=== PATIENT | female | born 1960 | race Caucasian/White ===

== ENCOUNTER 2017-12-10 11:00 | Emergency (ER) | payer MEDICARE ==
[~2017-12-10] VITALS: Ht 147.3 cm; Wt 65.8 kg
[~2017-12-10 11:00] MED LIST: BACLOFEN10 MG PO; CARAFATE1 G1 PO; CYCLOBENZAPRINE5 MG PO; DEPO-ESTRAD5 MG/1 ML IM; FIORICET TABLE1 EACH PO; KLONOPIN1 M1 PO; LEVOTHYROXINE112 MCG PO; LIALDA1.2 GM PO; LIPITOR40 MG PO; MORPHINE SULFAT30 M2 PO; NEXIUM40 MG PO; PANTOPRAZOLE SO40 MG PO; PERCOCET 10-321 EACH PO; RANITIDINE HCL300 M1 PO; REMERON30 MG PO; SEROQUEL25 MG PO; ULTRAM50 MG PO; Z SEROQUEL PO; Z.0.BENTYL20 MG PO; Z.0.PHENERGAN25 M1 PO; Z.0.SIMVASTATIN20 MG PO; Z.0.SOMA350 MG PO; Z.0.WELLBUTRIN XL300 PO; ZOFRAN8 MG PO; [UNRECOGNIZED DRUG - OTHER] PO
--- OUTSIDE RECORDS SUMMARY | 2017-12-10 11:04 | XMS REPORT | Clinical Summary ---
Author Author [facility] Organization [facility] Address Unknown Phone Unavailable Care Team Providers Care Swiss Type Screw Machine Operator Name Role Phone Mango High MD PCP Unavailable Allergies Active Allergy Reactions Severity Noted Date Comments Bacitracin 10/27/2017 Codeine Itching 05/01/2016 Nsaids (Non-Steroidal GI Intolerance 05/01/2016 Anti-Inflammatory Drug) Current Medications Prescription Sig. Disp. Refills Start End Date Status Date morPHINE (MS CONTIN) 15 0 09/04/20 Active MG 12 hr tablet 17 levothyroxine (SYNTHROID, Take 112 mcg by mouth 3 08/19/20 Active LEVOXYL) 112 mcg tablet once daily. 17 buPROPion XL (WELLBUTRIN Take 300 mg by mouth 0 08/17/20 Active XL) 300 MG 24 hr tablet every morning. 17 clonAZEPAM (KlonoPIN) 1 Take 1 mg by mouth 4 2 08/26/20 Active MG tablet (four) times a day. 17 cyclobenzaprine Take 10 mg by mouth 3 0 07/13/20 Active (FLEXERIL) 10 mg tablet (three) times a day as 17 needed. DEPO-ESTRADIOL 5 mg/mL INJECT 1 ML 0 09/15/20 Active injection INTRAMUSCULARLY ONCE A 17 MONTH gabapentin (NEURONTIN) Take 400 mg by mouth 3 3 07/22/20 Active 400 mg capsule (three) times a day. 17 tiZANidine (ZANAFLEX) 2 TK 1 T PO TID 2 09/08/20 Active MG tablet 17 sucralfate (CARAFATE) 1 Take 1 g by mouth 4 Active gram tablet (four) times a day. mesalamine (LIALDA) 1.2 Take 2.4 g by mouth once 1 11/15/20 Active gram EC tablet daily. 17 esomeprazole (NexIUM) 40 Take 40 mg by mouth daily Active MG capsule before breakfast. pantoprazole (PROTONIX) TAKE 1 TABLET BY MOUTH 5 09/07/20 Active 40 MG EC tablet TWICE A DAY BEFORE MEALS 17 atorvastatin (LIPITOR) 40 Take 40 mg by mouth Active MG tablet daily. fenofibrate (LOFIBRA) 54 Take 54 mg by mouth once 3 09/13/20 Active MG tablet daily. 17 ondansetron (ZOFRAN) 8 MG Take 8 mg by mouth every 1 09/08/20 Active tablet 6 (six) hours as needed. 17 for nausea methocarbamol (ROBAXIN) Take 750 mg by mouth 4 0 08/31/20 Active 750 MG tablet (four) times a day. 17 Active Problems Problem Noted Date DDD (degenerative disc disease), lumbar 11/15/2017 Encounters Date Type Specialty Care Team Description 10/27/2017 Office Visit Neurosurgery Jonathan Irizarry MD DDD ( degenerative disc disease), lumbar (Primary Dx) 10/11/2017 Hospital Radiology Anant Richey MD Piriformis syndrome, Encounter unspecified laterality; Arthritis 09/21/2017 Office Visit Orthopedic Surgery Anant Richey MD Piriformis syndrome, unspecified laterality (Primary Dx); Arthritis 09/21/2017 Procedure Pass Radiology after 12/09/2016 Social History Tobacco Use Types Packs/Day Years Used Date Current Every Day Smoker 1 Smokeless Tobacco: Never Used Tobacco Cessation: Ready to Quit: Yes; Counseling Given: Yes Alcohol Use Drinks/Week oz/Week Comments No Sex Assigned at Date Recorded Not on file Last Filed Vital Signs Not on file Plan of Treatment Health Maintenance Due Date Last Done Comments PAP SMEAR 1979 COLONOSCOPY 02/07/2008 MAMMOGRAM 02/07/2008 INFLUENZA VACCINE 05/25/2017 Results * MRI Sacrum And Or Coccyx Wo Contrast (10/11/2017 1:44 PM) Specimen Performing Laboratory [facility] [address] [place] [address] Narrative EXAMINATION:MRI SACRUM AND OR COCCYX WO CONTRAST CLINICAL HISTORY:G57.00 Lesion of sciatic nerveunspecified lower limb, M19.90 Unspecified osteoarthritisunspecified site, PAIN COMPARISON:Lumbar spine MRI dated March 15, [address] of the lumbar spine dated March 16, 2014 TECHNIQUE: Multiplanar MRI imaging of the sacrum withoutIV Gadolinium was performed. IMPRESSION: Again noted are postoperative changes with posterior laminectomy in the lower lumbar spine and postsurgical fluid in the laminectomy defect unchanged from prior examination. The sacrum and coccyx demonstrates normal alignment. Intervertebral disc graft is seen at the visualized intervertebral discs including L5-S1 level with endplate mild edema. Osseous donor site is seen in the right posterior iliac bone. The sacroiliac joints bilaterally are unremarkable with no evidence of osseous bony fusion of the joint and no joint effusion. The presacral soft tissues are unremarkable. The sacral spine canal and neural foramina are unremarkable. 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 IMPRESSION: Again noted are postoperative changes with posterior laminectomy in the lower lumbar spine and postsurgical fluid in the laminectomy defect unchanged from prior examination. The sacrum and coccyx demonstrates normal alignment. Intervertebral disc graft is seen at the visualized intervertebral discs including L5-S1 level with endplate mild edema. Osseous donor site is seen in the right posterior iliac bone. The sacroiliac joints bilaterally are unremarkable with no evidence of osseous bony fusion of the joint and no joint effusion. The presacral soft tissues are unremarkable. The sacral spine canal and neural foramina are unremarkable. [facility]-[id number] after 12/09/2016 Insurance Payer Benefit Subscriber ID Type Phone Address Plan / Group [facility] MEDICARE UNITED/CAR xxxxxxxxx HMO E MARIBEL CIFUENTES
[2017-12-10] MEDS ORDERED: CLONAZEPAM 1 MG TAB PO ONE (12:00)
[2017-12-10 12:36] VITALS: BP 127/90
== END 2017-12-10 12:24 | disposition home or self-care (01) ==
LOC: ER 11:00
DX: F41.9 Anxiety disorder, unspecified (principal); F13.239 Sedative, hypnotic or anxiolytic dependence with withdrawal, unspecified
CPT/HCPCS: 99283

== ENCOUNTER 2018-01-08 20:38 | Emergency (ER) | payer MEDICARE, OTHER ==
[~2018-01-08] VITALS: Ht 147.3 cm; Wt 65.8 kg
--- OUTSIDE RECORDS SUMMARY | 2018-01-08 20:41 | XMS REPORT | Clinical Summary ---
Author Author [facility] Address Unknown Phone Unavailable Care Team Providers Care Home And School Visitor Name Role Phone Mango High MD PCP [...] Dx); Arthritis 09/21/2017 Procedure Pass Radiology after 01/07/2017 Social History Tobacco Use Types Packs/Day Years Used Date Current Every Day Smoker 1 Smokeless Tobacco: Never Used Tobacco Cessation: Ready to Quit: Yes; Counseling Given: Yes Alcohol Use Drinks/Week oz/Week Comments No Sex Assigned at Date Recorded Not on file Last Filed Vital Signs Not on file Plan of Treatment Date Type Specialty Care Team Description 01/26/2018 Office Visit Neurosurgery Jonathan Irizarry MD [address] [facility] [address] [place] [address] Health Maintenance Due Date Last Done Comments PAP SMEAR 1979 COLONOSCOPY 02/07/2008 MAMMOGRAM 02/07/2008 INFLUENZA VACCINE 05/25/2017 Results * MRI Sacrum And Or Coccyx Wo Contrast (10/11/2017 1:44 PM) Specimen Performing Laboratory [address] [address] Narrative EXAMINATION:MRI SACRUM AND OR COCCYX WO [...] spine canal and neural foramina are unremarkable. 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 [facility]-[id number] after 01/07/2017 Insurance Payer Benefit Subscriber ID Type Phone Address Plan / Group [facility] MEDICARE UNITED/CAR xxxxxxxxx HMO Luis [address] [place]USS [id number]
--- OUTSIDE RECORDS SUMMARY | 2018-01-08 20:41 | XMS REPORT | Continuity of Care Document ---
Author Author [facility] Organization [facility] Address [address] [place] [address] Phone Unavailable Care Team Providers Care Cupola Melter Helper Name Role Phone RODRIGUEZ IBARRA MD PCP Insurance Providers Guarantor Hellen Segura Address [address] [place] [address] Email PTDECLINED Payer Care Improvement Plus Policy Number [id number] Subscriber's Name Hellen Segura Relationship 18 Self / Same As Patient Group Number [id number] Group Name UNEMPLOYED Effective Date 15 Payer [facility] Policy Number [id number] Subscriber's Name Hellen Segura Relationship 18 Self / Same As Patient Advance Directives Directive Response Recorded Date/Time Does the patient have an advance directive? No 11/08/14 8:31am If yes, is advance directive on file with [facility]? No 12/12/13 3:00pm If not on file with [facility] will patient provide a copy? Yes 10/21/16 12:15pm Problems No problem information available. Medications Current Home Medications Medication Dose Units Route Directions Days Qty Instructions Start Date Atorvastatin Calcium (Lipitor) 40 Mg Tablet 40 Mg Oral Bedtime Bupropion Hcl (Wellbutrin Xl) 300 Mg Tab.sr.24h 1 Tab Oral Daily Butalb/Acetaminophen/Caffeine (Fioricet Tablet) 1 Each Tablet 1-2 Tab Oral As Needed Clonazepam (Klonopin) 1 Mg Tab.rapdis 1 Tab Oral Four Times Daily Cyclobenzaprine Hcl (Flexeril) 5 Mg Tablet 30 Mg Oral Three Times A Day Dicyclomine Hcl (Bentyl) 20 Mg Tablet 1 Tab Oral Four Times Daily Esomeprazole Magnesium (Nexium) 40 Mg Capsule.dr 40 Mg Oral Twice A Day PROTONIX THERAPEUTIC SUBSTITUTE FOR NEXIUM PER [facility] Estradiol Cypionate (Depo-Estradiol) 5 Mg/1 Ml Vial 1.5 Ml Intramusc Q 21 Days Levothyroxine Sodium 112 Mcg Tablet 112 Mcg Oral Daily Mesalamine (Lialda) 1.2 Gm Tablet.dr 1.2 Gm Oral Twice A Day Mirtazapine (Remeron) 30 Mg Tablet 30 Mg Oral Bedtime Morphine Sulfate (Morphine Sulfate Er) 30 Mg Tablet.er 30 Mg Oral Three Times A Day Ondansetron Hcl (Zofran) 8 Mg Tablet 8 Mg Oral As Needed Pantoprazole Sodium (Protonix) 40 Mg Tablet.dr 40 Mg Oral Twice A Day Quetiapine Fumarate (Seroquel) 25 Mg Tablet 150 Mg Oral Bedtime 60 Tab Sucralfate (Carafate) 1 Gm Tablet 1 Tab Oral Four Times Daily Past Home Medications Medication Directions Ordered Status Baclofen 10 Mg Tablet, 10 Mg Oral Three Times A Day Discontinued Carisoprodol (Soma) 350 Mg Tablet, 1 Tab Oral Four Times Daily Discontinued Hydrocodone Bit/Acetaminophen (Lorcet Plus Tablet) 1 Each Tablet, 1 Tab Oral Q 4-6 Hours Discontinued Oxycodone Hcl/Acetaminophen (Percocet 10-325 Mg Tablet) 1 Each Tablet, 1 Tab Oral Four Times Daily Discontinued Promethazine Hcl (Phenergan) 25 Mg Tablet, 2 Tab Oral As Needed Discontinued Quetiapine Fumarate (Seroquel) 400 Mg Tablet, 2 Tab Oral Qhs Discontinued Ranitidine Hcl 300 Mg Capsule, 300 Mg Oral Bedtime Discontinued Simvastatin 20 Mg Tablet, 1 Tab Oral Qhs Discontinued Tramadol Hcl (Ultram) 50 Mg Tablet, 1 Tab Oral As Needed Discontinued Social History Social History Problem Response Recorded Date/Time Onset Date Status Hx Psychiatric Problems No 12/12/2013 3:00pm Not Applicable Not Applicable Hx Eating Disorder No 12/12/2013 3:00pm Not Applicable Not Applicable Hx Substance Use Disorder No 12/12/2013 3:00pm Not Applicable Not Applicable Hx Depression No 12/12/2013 3:00pm Not Applicable Not Applicable Hx Substance Use Treatment No 12/12/2013 3:00pm Not Applicable Not Applicable Hx Physical Abuse No 12/12/2013 3:00pm Not Applicable Not Applicable Hospital Discharge Instructions No hospital discharge instruction information available. Plan of Care Discharge Date 12/10/17 12:24pm Disposition HOME, SELF-CARE Condition at Discharge Stable Instructions/Education Provided Panic Attack Forms Provided Work/School Excuse Prescriptions See Medication Section Functional Status No functional status information available. Allergies, Adverse Reactions, Alerts Allergen Type Severity Reaction Status Last Updated NSAIDS (Non-Steroidal Anti-Inflamma Allergy Mild Active 12/10/17 Alprazolam Allergy Mild "It makes me crazy" Active 10/21/16 Morphine Allergy Mild SEE COMMENTS Active 09/18/15 Codeine Allergy Mild Active 10/21/16 Oxycodone Allergy Unknown "It makes you do things, that's all I will say" Active 10/21/16 Hydromorphone Allergy Unknown SEE COMMENTS Active 10/21/16 Immunizations No immunization information available. Vital Signs Acute Vital Signs Vital Response Date/Time Pulse Pulse Rate (adult) 90 bpm (60 - 90) 12/10/2017 12:36pm Respiratory Rate 20 bpm (12 - 24) 12/10/2017 12:36pm Blood Pressure 127/90 mm Hg 12/10/2017 12:36pm Height 4 ft 10 in 12/10/2017 11:48am Weight 145 lb 12/10/2017 11:48am Body Mass Index 30.3 kg/m^2 12/10/2017 11:48am Results No relevant diagnostic test, laboratory data and/or discharge summary information available. Procedures No procedure information available. Encounters Encounter Location Arrival/Admit Date Discharge/Depart Date Attending Provider Departed Emergency Room [facility] 12/10/17 11:00am 12/10 12:24pm ZHOU HIGGINBOTHAM MD
[2018-01-08] MEDS ORDERED: MORPHINE SULFATE 4 MG/ML SYR IM PRN (22:00)
[2018-01-08 23:38] VITALS: BP 125/64
== END 2018-01-08 22:15 | disposition home or self-care (01) ==
LOC: FSED 20:38
DX: M54.5 Low back pain (principal); G89.29 Other chronic pain; F41.9 Anxiety disorder, unspecified; F32.9 Major depressive disorder, single episode, unspecified; E78.5 Hyperlipidemia, unspecified
CPT/HCPCS: 99282

== ENCOUNTER 2019-04-11 15:29 | Emergency (ER) | payer MEDICARE, OTHER ==
[~2019-04-11] VITALS: Ht 147.3 cm; Wt 72.6 kg
--- OUTSIDE RECORDS SUMMARY | 2019-04-11 15:32 | XMS REPORT | Clinical Summary ---
Author Author [facility] Address Unknown Phone Unavailable Care Team Providers Care Analysis Internship Name Role Phone Asked, No Pcp PCP Unavailable Allergies Comments Active Allergy Reactions Severity Noted Date Bacitracin 10/27/2017 Codeine Itching 05/01/2016 Nsaids (Non-Steroidal GI 05/01/2016 Anti-Inflammatory Drug) Intolerance Medications End Date Status Medication Sig Dispensed Refills Start Date 04/15/2019 Active sucralfate (CARAFATE) 1 Take 1 tablet 120 tablet 11 gram tablet (1 g total) 8 by mouth 4 (four) times a day. 04/15/2019 Active dicyclomine (BENTYL) 20 Take 1 tablet 120 tablet 11 mg tablet (20 mg total) 8 by mouth 4 (four) times a day. 04/15/2019 Active gabapentin (NEURONTIN) Take 1 90 capsule 11 300 mg capsule capsule (300 8 mg total) by mouth 3 (three) times a day. Active ondansetron (ZOFRAN) 8 MG Take 1 tablet 20 tablet 0 tablet (8 mg total) 8 by mouth every 6 (six) hours as needed for nausea. 04/16/2019 Active atorvastatin (LIPITOR) 40 Take 1 tablet 30 tablet 11 MG tablet (40 mg total) 8 by mouth daily. Active mesalamine (ASACOL) 800 Take 3 0 mg EC tablet tablets 8 (2,400 mg total) by mouth daily. 04/15/2019 Active fenofibrate (LOFIBRA) 54 Take 1 tablet 30 tablet 11 MG tablet (54 mg total) 8 by mouth nightly. 04/15/2019 Active ipratropium (ATROVENT) Take 2.5 mL 75 mL 12 0.02 % nebulizer solution (0.5 mg 8 total) by nebulization every 6 (six) hours while awake. Active benzocaine-menthol Apply 1 0 (CEPACOL MAX) 15-3.6 mg lozenge to 8 lozenge cheek every 2 (two) hours as needed (sore throat). 04/16/2019 Active buPROPion XL (WELLBUTRIN Take 1 tablet 30 tablet 11 XL) 300 MG 24 hr tablet (300 mg 8 total) by mouth daily. Active pantoprazole (PROTONIX) Take 1 tablet 0 40 MG EC tablet (40 mg total) 8 by mouth daily. 04/16/2019 Active levothyroxine (SYNTHROID, Take 1 tablet 30 tablet 11 LEVOXYL) 75 mcg tablet (75 mcg 8 total) by mouth daily. Active lactulose 20 gram/30 mL Take 30 mL 0 solution (20 g total) 8 by mouth 2 (two) times a day. Hold if diarrhea Or BM today Active clonAZEPAM (KlonoPIN) 1 Take 1 mg by 0 MG tablet mouth 4 (four) times a day. 04/15/2018 Discontinued levothyroxine (SYNTHROID, Take 74 mcg 3 LEVOXYL) 112 mcg tablet by mouth once 7 daily. 04/15/2018 Discontinued buPROPion XL (WELLBUTRIN Take 300 mg 0 XL) 300 MG 24 hr tablet by mouth 7 every morning. 04/15/2018 Discontinued clonAZEPAM (KlonoPIN) 1 Take 2 mg by 2 MG tablet mouth 4 7 (four) times a day. 04/15/2018 Discontinued DEPO-ESTRADIOL 5 mg/mL INJECT 1 ML 0 injection INTRAMUSCULAR 7 LY ONCE A MONTH 04/15/2018 Discontinued gabapentin (NEURONTIN) Take 300 mg 3 400 mg capsule by mouth as 7 needed. 04/15/2018 Discontinued sucralfate (CARAFATE) 1 Take 1 g by 0 gram tablet mouth 4 (four) times a day. 04/15/2018 Discontinued mesalamine (LIALDA) 1.2 Take 2.4 g by 1 gram EC tablet mouth once 7 daily. 04/15/2018 Discontinued esomeprazole (NexIUM) 40 Take 40 mg by 0 MG capsule mouth daily before breakfast. 04/15/2018 Discontinued pantoprazole (PROTONIX) TAKE 1 TABLET 5 40 MG EC tablet BY MOUTH 7 TWICE A DAY BEFORE MEALS 04/15/2018 Discontinued atorvastatin (LIPITOR) 40 Take 40 mg by 0 MG tablet mouth daily. 04/15/2018 Discontinued fenofibrate (LOFIBRA) 54 Take 54 mg by 3 MG tablet mouth once 7 daily. 04/15/2018 Discontinued ondansetron (ZOFRAN) 8 MG Take 8 mg by 1 tablet mouth every 6 7 (six) hours as needed. for nausea 04/15/2018 Discontinued dicyclomine (BENTYL) 20 Take 20 mg by 0 mg tablet mouth 4 (four) times a day. 04/15/2018 Discontinued morphine sulfate (MS Take 15 mg by 0 CONTIN ORAL) mouth every 4 (four) hours. 04/15/2018 Discontinued oxyCODone (OxyCONTIN) 10 Take 10 mg by 0 MG 12 hr tablet mouth every 12 (twelve) hours. 05/16/2018 Discontinued acetaminophen (TYLENOL) Take 31.3 mL 0 160 mg/5 mL (5 mL) (1,000 mg 8 solution total) by mouth every 8 (eight) hours. 05/16/2018 Discontinued morPHINE (MSIR) 15 MG Take 1 tablet 0 tablet (15 mg total) 8 by mouth every 4 (four) hours as needed for severe pain for up to 30 days. Max Daily Amount: 90 mg 05/16/2018 Discontinued diazePAM (VALIUM) 5 MG Take 1 tablet 0 tablet (5 mg total) 8 by mouth every 8 (eight) hours for 30 days. 05/16/2018 Discontinued simethicone (MYLICON) 80 Chew 1 tablet 0 MG chewable tablet (80 mg total) 8 every 6 (six) hours as needed for flatulence for up to 30 days. 05/16/2018 Discontinued heparin sodium,porcine Inject 1 mL 0 (HEPARIN, PORCINE,) 5,000 (5,000 Units 8 unit/mL injection total) under the skin every 12 (twelve) hours. 05/16/2018 Discontinued polyethylene glycol Take 17 g by 60 packet 0 (MIRALAX) 17 gram packet mouth 2 (two) 8 times a day for 30 days. 05/16/2018 Discontinued sennosides-docusate Take 1 tablet 60 tablet 11 sodium (SENOKOT-S) 8.6-50 by mouth 2 8 mg per tablet (two) times a day. 05/16/2018 Discontinued bisacodyl (DULCOLAX) 10 Insert 1 0 mg suppository suppository 8 (10 mg total) into the rectum daily as needed for constipation for up to 30 days. 05/16/2018 nicotine (NICODERM CQ) 14 Place 1 patch 30 patch 0 mg/24 hr on the skin 8 daily for 30 days. 05/16/2018 lidocaine (LIDODERM) 5 % Place 1 patch 30 patch 0 on the skin 8 daily for 30 days. Remove & Discard patch within 12 hours or as directed by 05/16/2018 Discontinued povidone-iodine Apply 0 (BETADINE) 10 % external topically 8 solution every 12 (twelve) hours for 30 days. Apply to incision twice a day and change dressing 04/15/2018 lidocaine PF (XYLOCAINE) Inject 5 mL 5 mL 0 10 mg/mL (1 %) injection as directed 8 once for 1 dose. 05/16/2018 Discontinued cephalexin (KEFLEX) 500 Take 1 0 MG capsule capsule (500 8 mg total) by mouth every 12 (twelve) hours for 10 days. 05/16/2018 Discontinued clonAZEPAM (KlonoPIN) 1 Take 1 tablet 60 tablet 0 MG tablet (1 mg total) 8 by mouth every 6 (six) hours as needed for anxiety for up to 30 days. 06/05/2018 morPHINE (MS CONTIN) 15 Take 1 tablet 0 MG 12 hr tablet (15 mg total) 8 by mouth every 12 (twelve) hours for 20 days. Max Daily Amount: 30 mg 06/15/2018 morPHINE (MSIR) 15 MG Take 1 tablet 0 tablet (15 mg total) 8 by mouth every 4 (four) hours as needed for severe pain for up to 30 days. Max Daily Amount: 90 mg 06/09/2018 meropenem 1 g in sodium Infuse 1 g 1 each 0 chloride 0.9 % MBP 100 mL into a venous 8 IVPB catheter every 8 (eight) hours for 24 days. 06/15/2018 warfarin (COUMADIN) 2 MG Take 2 100 tablet 2 tablet tablets (4 mg 8 total) by mouth daily for 30 days. 10/26/2018 HYDROcodone-acetaminophen Take 1 tablet 50 tablet 0 (NORCO) 10-325 mg per by mouth 8 tablet every 6 (six) hours as needed for moderate pain for up to 14 days. 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 Degeneration of lumbar or lumbosacral intervertebral disc 04/22/2018 DDD (degenerative disc disease), lumbar 11/15/2017 Encounters Care Team Description Date Type Specialty Radha Zurita MA Scoliosis of thoracolumbar spine, unspecified scoliosis type (Primary Dx) 12/16/2018 Orders Only Neurosurgery Radha Zurita MA Scoliosis of thoracolumbar spine, unspecified scoliosis type (Primary Dx) 10/14/2018 Orders Only Neurosurgery Jonathan Irizarry MD 10/12/2018 Refill Neurosurgery Jonathan Irizarry MD 10/12/2018 Orders Only Neurosurgery Abram Norton MD Chronic midline low back pain without sciatica (Primary Dx) 10/08/2018 Emergency Emergency Medicine Jonathan Irizarry MD Sagittal plane imbalance (Primary Dx) 07/06/2018 Office Visit Jeannie Moreira MA 06/08/2018 Telephone Infectious Diseases Jeannie Beatty MA 06/08/2018 Abstract Infectious Diseases N/A 06/07/2018 Intake Access Radha Zurita MA 06/07/2018 Telephone Jeannie Moreira MA 06/07/2018 Telephone Infectious Diseases Jonathan Irizarry MD Sagittal plane imbalance (Primary Dx); DDD (degenerative disc disease), lumbar 06/01/2018 Office Visit Neurosurgery Jonathan Irizarry MD Scoliosis of thoracolumbar spine, unspecified scoliosis type 06/01/2018 Hospital Radiology Encounter Radha Zurita MA Scoliosis of thoracolumbar spine, unspecified scoliosis type (Primary Dx) 06/01/2018 Transcribe Neurosurgery Orders Jeannie Beatty MA 05/30/2018 Abstract Infectious Diseases 05/20/2018 Clinical Home Health Services Support Amy Mckeon RN 05/16/2018 Patient Quality Outreach [facility], Kin Kang MD 05/05/2018 Anesthesia Plastic Surgery Event Felisa Kwon MD DEBRIDEMENT OF BILATERAL LUMBAR WOUNDS AND REMOVAL OF 20 ANTIBIOTIC BEADS, COVERAGE OF RIGHT BECKY-LUMBAR WOUND WITH ROTATIONAL PARASPINIS MUSCLE FLAP AND LOCAL SKIN ADVANCEMENT WOUND OF 10CM X 2 CM, COVERAGE OF MID LUMBAR WOUND WITH ROTATIONAL PARASPINIS MUSCLE FLAP AND LOCAL SKIN ADVANCEMENT FLAP OF WOUND 30 CM X 4 CM 05/05/2018 Surgery Plastic Surgery Manuel Mckeon 04/26/2018 Anesthesia Plastic Surgery Event Felisa Kwon MD EXCISIONAL DEBRIDEMENT OF 2 LUMBAR WOUNDS, AND PLACEMENT OF 20 ANTIBIOTIC BEADS (12 IN MIDLINE WOUND, 8 IN RIGHT BACK WOUND) 04/26/2018 Surgery Plastic Surgery Ghazala Rodriguez MD Holman, Paul J., MD DDD (degenerative disc disease), lumbar (Primary Dx); Wound dehiscence; Acute midline low back pain without sciatica; Degenerative disc disease, lumbar; Unspecified open wound of lower back and pelvis without penetration into retroperitoneum, initial encounter; H/O degenerative disc disease 04/20/2018 Hospital Neurosurgery - Encounter 05/16/2018 Jonathan Irizarry MD DDD (degenerative disc disease), lumbar 04/01/2018 Hospital Neurosurgery - Encounter 04/15/2018 after 04/10/2018 Family History Medical History Relation Name Comments No Known Problems Father Cancer Mother Cancer Sister Relation Name Status Comments Father Mother Sister Alive Social History Date Tobacco Use Types Packs/Day Years Used Current Every Day Smoker 1 Smokeless Tobacco: Never Used Tobacco Cessation: Ready to Quit: No; Counseling Given: Yes Comments: havent smoked in 30 days Alcohol Use Drinks/Week oz/Week Comments No Sex Assigned at Date Recorded Not on file Industry Job Start Date Occupation Not on file Not on file Not on file Travel End Travel History Travel Start No recent travel history available. Last Filed Vital Signs Time Taken Vital Sign Reading 10/08/2018 8:00 PM ARTS THERAPIST Blood Pressure 126/67 10/08/2018 8:00 PM ARTS THERAPIST Pulse 88 10/08/2018 3:55 PM ARTS THERAPIST Temperature 36.4 C (97.5 F) 10/08/2018 8:00 PM ARTS THERAPIST Respiratory Rate 16 10/08/2018 8:00 PM ARTS THERAPIST Oxygen Saturation 98% - Inhaled Oxygen - Concentration 05/05/2018 3:38 PM CDT Weight 68 kg (150 lb) 10/08/2018 3:55 PM ARTS THERAPIST Height 149.9 cm (4' 11") 05/05/2018 3:38 PM CDT Body Mass Index 30.82 Plan of Treatment Health Maintenance Due Date Last Done Comments BREAST CANCER SCREENING 02/07/2008 COLONOSCOPY SCREENING 02/07/2008 SHINGLES VACCINES (#1) 02/07/2008 INFLUENZA VACCINE 05/25/2019 Implants Device Identifier Shelf Expiration Date Model / Serial / Lot Implanted Type Area Manufactur er 08/16/2020 [id number] / / [id number] Mazor X Spine Disposable Kit Accessorie N/A: N/A Implanted: Qty: 1 on 04/01/2018 by s Jonathan Irizarry MD 01/22/2021 [id number] / / [id number] 2.5cc Healthlink Ifactor Putty, Bone Graft N/A: N/A HEALTHLINK Peptide Enhanced Bone Graft Substitute Implanted: Qty: 1 on 04/01/2018 by Jonathan Irizarry MD 08/25/2022 [id number] / [id number] / [id number] Bone Matriz Osteocel Pro Large - Human N/A: N/A NUVASIVE [id number] - [id number] Tissue Implanted: Qty: 1 on 04/01/2018 by Implants Jonathan Irizarry MD 08/10/2022 [id number] / [id number] / [id number] Bone Cancellous 30ml Chips - Human N/A: N/A RTI [id number] - [id number] Tissue SURGICAL Implanted: Qty: 1 on 04/01/2018 by Implants INC. Jonathan Irizarry MD 03/25/2019 [id number] / / [id number] Kit Bone Grft Lmbr Tprd 8ml Xxl Human N/A: N/A MEDTRONIC Infuse - [id number] Tissue SPINAL AND Implanted: Qty: 1 on 04/01/2018 by Implants Jonathan Cunningham MD 07/08/2019 [id number] / [id number] / [id number] Paste Dbm Easy-Dispensing Wdmth Syr Human N/A: N/A MEDTRONIC 10ml [address] - [id number] - Tissue SPINAL [id number] Implants GRAFT Implanted: Qty: 1 on 04/01/2018 by TECHNOLOGJonathan Morales MD 08/30/2019 [id number] / [id number] / [id number] Drafton Dbm Orthoblend Small Defect Human N/A: N/A MEDTRONIC 5cc - [id number] - [id number] Tissue SPINAL AND Implanted: Qty: 1 on 04/01/2018 by Implants Jonathan Cunningham MD [id number] / / Maxcess 4 Surgical Access Kit - IPM N/A: N/A NUVASIVE [id number] IMPLANT SPINE Implanted: Qty: 1 on 04/01/2018 by Jonathan Bray MD 12/14/2022 [id number] / / [id number] Modulus Xlw, [id number] 10deg - IPM N/A: N/A NUVASIVE [id number] IMPLANT SPINE Implanted: Qty: 1 on 04/01/2018 by Jonathan Bray MD [id number] / / Maxcess 4 Surgical Access Kit - IPM N/A: N/A NUVASIVE [id number] IMPLANT SPINE Implanted: Qty: 1 on 04/01/2018 by Jonathan Bray MD 08/23/2020 [id number] / / NA Modulus Xlw, [id number] 10deg - IPM N/A: N/A NUVASIVE [id number] IMPLANT SPINE Implanted: Qty: 1 on 04/01/2018 by Jonathan Bray MD [id number] / / Reline Mas Cocr Pratik, 5.6w376ds IPM N/A: N/A NUVASIVE Straight - [id number] IMPLANT SPINE Implanted: Qty: 4 on 04/01/2018 by Jonathan Bray MD [id number] / / Nit K-Wire Precept - [id number] IPM N/A: N/A NUVASIVE Implanted: Qty: 6 on 04/01/2018 by IMPLANT SPINE Jonathan Irizarry MD DEVICES [id number] / / Reline Open Lock Screw - [id number] IPM N/A: N/A NUVASIVE Implanted: Qty: 14 on 04/01/2018 by IMPLANT SPINE Jonathan Irizarry MD DEVICES 07/04/2020 [id number] / / NA Reline Mas Ti Pratik 5.5x25mm Lordotic IPM N/A: N/A NUVASIVE - [id number] IMPLANT SPINE Implanted: Qty: 1 on 04/01/2018 by DEVICES Jonathan Irizarry MD 08/13/2020 [id number] / / NA Reline Mas Screw, 5.5x35mm 2c IPM N/A: N/A NUVASIVE Polyaxial - [id number] IMPLANT SPINE Implanted: Qty: 1 on 04/01/2018 by Jonathan Bray MD 08/13/2020 [id number] / / NA Reline Mas Screw, 5.5x40mm 2c IPM N/A: N/A NUVASIVE Polyaxial - [id number] IMPLANT SPINE Implanted: Qty: 1 on 04/01/2018 by DEVICES Jonathan Irizarry MD [id number] / / Reline Mas Screw, 6.5x45mm 2c IPM N/A: N/A NUVASIVE Polyaxial - [id number] IMPLANT SPINE Implanted: Qty: 2 on 04/01/2018 by Jonathan Bray MD 03/13/2022 [id number] / / NA Reline Mas Screw, 5.5x40mm 2c IPM N/A: N/A NUVASIVE Polyaxial - [id number] IMPLANT SPINE Implanted: Qty: 1 on 04/01/2018 by Jonathan Bray MD 03/18/2020 [id number] / / [id number] Modulus Xlw, [id number] 10deg - IPM N/A: N/A NUVASIVE [id number] IMPLANT SPINE Implanted: Qty: 1 on 04/01/2018 by Jonathan Bray MD 03/13/2020 [id number] / / NA Reline Mas Screw, 6.5x35mm 2c IPM N/A: N/A NUVASIVE Polyaxial - [id number] IMPLANT SPINE Implanted: Qty: 1 on 04/01/2018 by DEVICES Jonathan Irizarry MD [id number] / / Reline Mas Screw, 6.5x40mm 2c IPM N/A: N/A NUVASIVE Polyaxial - [id number] IMPLANT SPINE Implanted: Qty: 2 on 04/01/2018 by DEVICES Jonathan Irizarry MD [id number] / / Reline Mas Screw, 6.5x50mm 2c IPM N/A: N/A NUVASIVE Polyaxial - [id number] IMPLANT SPINE Implanted: Qty: 1 on 04/01/2018 by DEVICES Jonathan Irizarry MD [id number] / / Reline Mas Screw, 7.5x45mm 2c IPM N/A: N/A NUVASIVE Polyaxial - [id number] IMPLANT SPINE Implanted: Qty: 1 on 04/01/2018 by Jonathan Bray MD [id number] / / Reline Mas Screw, 8.5x40mm 2c IPM N/A: N/A NUVASIVE Polyaxial - [id number] IMPLANT SPINE Implanted: Qty: 1 on 04/01/2018 by DEVICES Jonathan Irizarry MD [id number] / / Reline Mas Screw, 7.5x40mm 2c IPM N/A: N/A NUVASIVE Polyaxial - [id number] IMPLANT SPINE Implanted: Qty: 1 on 04/01/2018 by Jonathan Bray MD 03/23/2020 [id number] / / NA Reline Mas Screw, 8.5x70mm 2c Poly IPM N/A: N/A NUVASIVE Iliac - [id number] IMPLANT SPINE Implanted: Qty: 2 on 04/01/2018 by Jonathan Bray MD 08/24/2022 [id number] / / [id number] Material Bone Hmsts Wtrsolbl 2.5g Orthopedic N/A: N/A Ostene - [id number] Trauma Implanted: Qty: 1 on 04/01/2018 by Jonathan Ott MD [id number] / / Kit Dil M5 Xlif - [id number] Spinal N/A: N/A NUVASIVE Implanted: Qty: 1 on 04/01/2018 by Implants Jonathan Irizarry MD [id number] / / Kit Dil M5 Xlif - [id number] Spinal N/A: N/A NUVASIVE Implanted: Qty: 1 on 04/01/2018 by Implants Jonathan Irizarry MD 01/22/2019 [id number] / / [id number] Cement Bone Full-Dose Premxd W/ Surgical N/A: Back, GAEL Tobr Simplex P Pack 10/Ea - Bone Other than ORTHOPEDIC [id number] Cement Spine S Implanted: Qty: 1 on 04/26/2018 by HIPS-KNEES Felisa Kwon MD 02/22/2022 [id number] / / [id number] 500mg, Amniofill Human Placental N/A: N/A [id number] Tissue Allograft Implanted: Qty: 1 on 04/01/2018 by Jonathan Irizarry MD Procedures Comments Procedure Name Priority Date/Time Associated Diagnosis C-REACTIVE PROTEIN Routine 06/06/2018 BASIC METABOLIC PANEL Routine 06/06/2018 CBC WITH PLATELET AND Routine 06/06/2018 DIFFERENTIAL XR SPINE SCOLIOSIS 2-3 Routine 06/01/2018 Scoliosis of VIEWS 1:20 PM CDT thoracolumbar spine, unspecified scoliosis type C-REACTIVE PROTEIN Routine 05/30/2018 BASIC METABOLIC PANEL Routine 05/30/2018 CBC WITH PLATELET AND Routine 05/30/2018 DIFFERENTIAL C-REACTIVE PROTEIN Routine 05/23/2018 BASIC METABOLIC PANEL Routine 05/23/2018 CBC WITH PLATELET AND Routine 05/23/2018 DIFFERENTIAL PROTHROMBIN TIME WITH INR Routine 05/16/2018 7:56 AM CDT PROTHROMBIN TIME WITH INR Routine 05/15/2018 4:20 AM CDT HEPATIC FUNCTION PANEL Routine 05/14/2018 5:15 AM CDT PROTHROMBIN TIME WITH INR Routine 05/14/2018 5:15 AM CDT ZZESTIMATED GFR Routine 05/13/2018 3:45 AM CDT FERRITIN LEVEL Routine 05/13/2018 3:45 AM CDT VITAMIN B12 LEVEL Routine 05/13/2018 3:45 AM CDT THYROID STIMULATING Routine 05/13/2018 HORMONE 3:45 AM CDT PHOSPHORUS LEVEL Routine 05/13/2018 3:45 AM CDT MAGNESIUM LEVEL Routine 05/13/2018 3:45 AM CDT LIPID PANEL Routine 05/13/2018 3:45 AM CDT BASIC METABOLIC PANEL Routine 05/13/2018 3:45 AM CDT HC COMPLETE BLD COUNT Routine 05/13/2018 W/AUTO DIFF 3:45 AM CDT PROTHROMBIN TIME WITH INR Routine 05/13/2018 3:45 AM CDT CBC HEMOGRAM Routine 05/12/2018 4:02 AM CDT PROTHROMBIN TIME WITH INR Routine 05/12/2018 4:02 AM CDT C-REACTIVE PROTEIN STAT 05/11/2018 11:12 AM CDT SEDIMENTATION RATE STAT 05/11/2018 11:12 AM CDT CBC HEMOGRAM Routine 05/11/2018 3:41 AM CDT PROTHROMBIN TIME WITH INR Routine 05/11/2018 3:41 AM CDT CBC HEMOGRAM Routine 05/10/2018 6:15 AM CDT PROTHROMBIN TIME WITH INR Routine 05/10/2018 6:15 AM CDT PROTHROMBIN TIME WITH INR Routine 05/09/2018 9:35 PM CDT US DUPLEX VENOUS UPPER Routine 05/08/2018 EXTREMITY RIGHT 9:02 AM CDT VANCOMYCIN LEVEL, TROUGH Timed 05/07/2018 4:20 PM CDT XR PICC CHEST PORTABLE Routine 05/06/2018 H/O degenerative disc 6:47 PM CDT disease HC CATH DUAL LUMEN PICC Routine 05/06/2018 6:19 PM CDT HC US GUIDED VASCULAR Routine 05/06/2018 ACCESS 6:19 PM CDT HC CVL PICC INSERT 5 YRS Routine 05/06/2018 OR > W/O IMG GUID 6:19 PM CDT AFB STAIN Timed 05/05/2018 5:05 PM CDT GRAM STAIN Timed 05/05/2018 5:05 PM CDT FUNGUS SMEAR Timed 05/05/2018 5:05 PM CDT AFB CULTURE Timed 05/05/2018 Unspecified open wound of 5:05 PM CDT lower back and pelvis without penetration into retroperitoneum, initial encounter AEROBIC CULTURE Timed 05/05/2018 Unspecified open wound of 5:05 PM CDT lower back and pelvis without penetration into retroperitoneum, initial encounter FUNGUS CULTURE Timed 05/05/2018 Unspecified open wound of 5:05 PM CDT lower back and pelvis without penetration into retroperitoneum, initial encounter ANAEROBIC CULTURE Timed 05/05/2018 Unspecified open wound of 5:05 PM CDT lower back and pelvis without penetration into retroperitoneum, initial encounter AFB STAIN Timed 05/05/2018 5:04 PM CDT GRAM STAIN Timed 05/05/2018 5:04 PM CDT FUNGUS SMEAR Timed 05/05/2018 5:04 PM CDT AFB CULTURE Timed 05/05/2018 Unspecified open wound of 5:04 PM CDT lower back and pelvis without penetration into retroperitoneum, initial encounter AEROBIC CULTURE Timed 05/05/2018 Unspecified open wound of 5:04 PM CDT lower back and pelvis without penetration into retroperitoneum, initial encounter FUNGUS CULTURE Timed 05/05/2018 Unspecified open wound of 5:04 PM CDT lower back and pelvis without penetration into retroperitoneum, initial encounter ANAEROBIC CULTURE Timed 05/05/2018 Unspecified open wound of 5:04 PM CDT lower back and pelvis without penetration into retroperitoneum, initial encounter OR AN ELECTIVE Routine 05/05/2018 ENDOTRACHEAL AIRWAY 4:40 PM CDT Procedure Note - Gumaro Horn MECHANICAL SERVICE TECHNICIAN - 05/05/2018 4:40 PM CDT Airway Date/Time: 05/05/2018 4:40 PM Performed by: GUMARO HORN. Authorized by: BRENDAN GONZALES Location: OR Urgency: Elective Difficult Airway: No Preoxygena patrizia with 100% O2: Yes C-spine Precaution s Maintained Throughout : Yes Mask Ventilatio n: Easy mask Final Airway Type: Endotrache al airway Final Endotrache al Airway: ETT Cuffed: Yes Technique Used: Direct laryngosco py Insertion Site: Oral Blade Type: Connelly Laryngosco pe Blade/Vide olaryngosc ope Blade Size: 2 ETT Size (mm): 7.0 Measured from: Teeth ETT to Teeth (cm): 21 Placement Verified by: CO2 detection, direct visualizat ion and equal breath sounds Laryngosco pic view: Grade I - full view of glottis Rapid Sequence Induction (RSI): No Modified RSI: No PROTHROMBIN TIME WITH INR STAT 05/05/2018 3:00 PM CDT CLOSURE, WOUND, USING 05/05/2018 Unspecified open wound of ROTATION FLAP 1:55 PM CDT lower back and pelvis without penetration into retroperitoneum, initial encounter Case Notes TF, REQ 1330 START, EST 3HRS, MD CANNOT WORK EARLIER Special Needs TF, REQ 1330 START, EST 3HRS, MD CANNOT WORK EARLIER HC COMPLETE BLD COUNT STAT 05/05/2018 W/AUTO DIFF 1:49 PM CDT ZZESTIMATED GFR Routine 05/04/2018 4:00 AM CDT BASIC METABOLIC PANEL Routine 05/04/2018 4:00 AM CDT TYPE AND SCREEN Routine 05/04/2018 3:15 AM CDT HC COMPLETE BLD COUNT Routine 05/04/2018 W/AUTO DIFF 3:15 AM CDT C-REACTIVE PROTEIN Routine 05/03/2018 4:00 AM CDT SEDIMENTATION RATE Routine 05/02/2018 6:00 AM CDT ZZESTIMATED GFR Routine 04/30/2018 4:20 AM CDT HC COMPLETE BLD COUNT Routine 04/30/2018 W/AUTO DIFF 4:20 AM CDT BASIC METABOLIC PANEL Routine 04/30/2018 4:20 AM CDT AFB STAIN Routine 04/26/2018 11:11 AM CDT FUNGUS SMEAR Routine 04/26/2018 11:11 AM CDT GRAM STAIN Routine 04/26/2018 11:11 AM CDT ANAEROBIC CULTURE Routine 04/26/2018 11:11 AM CDT AFB CULTURE Routine 04/26/2018 11:11 AM CDT FUNGUS CULTURE Routine 04/26/2018 11:11 AM CDT AEROBIC CULTURE Routine 04/26/2018 11:11 AM CDT AFB STAIN Routine 04/26/2018 11:11 AM CDT FUNGUS SMEAR Routine 04/26/2018 11:11 AM CDT GRAM STAIN Routine 04/26/2018 11:11 AM CDT AFB CULTURE Routine 04/26/2018 11:11 AM CDT ANAEROBIC CULTURE Routine 04/26/2018 11:11 AM CDT FUNGUS CULTURE Routine 04/26/2018 11:11 AM CDT AEROBIC CULTURE Routine 04/26/2018 11:11 AM CDT OR AN ELECTIVE Routine 04/26/2018 ENDOTRACHEAL AIRWAY 10:16 AM CDT Procedure Note - Ellen Owens MECHANICAL SERVICE TECHNICIAN - 04/26/2018 10:16 AM CDT Airway Date/Time: 04/26/2018 10:11 AM Performed by: ELLEN OWENS Authorized by: MANUEL SAWYER Location: OR Urgency: Elective Difficult Airway: No Anesthesio logist: MANUEL SAWYER Resident/C RNA/AA: ELLEN OWENS Performed by: resident/C RNA/AA Preoxygena patrizia with 100% O2: Yes C-spine Precaution s Maintained Throughout : Yes Mask Ventilatio n: Easy mask Final Airway Type: Endotrache al airway Final Endotrache al Airway: ETT Cuffed: Yes Technique Used: Direct laryngosco py Devices/Me thods Used in Placement: Intubatin g stylet Insertion Site: Oral Blade Type: Connelly Laryngosco pe Blade/Vide olaryngosc ope Blade Size: 2 ETT Size (mm): 7.0 Cuff at minimum occlusion pressure: Yes Measured from: Teeth ETT to Teeth (cm): 21 Placement Verified by: CO2 detection, direct visualizat ion and equal breath sounds Laryngosco pic view: Grade I - full view of glottis Rapid Sequence Induction (RSI): No Modified RSI: No Number of Attempts at Approach: 1 PreO2. Eyes taped with LOC on induction. Easily able to establish BMV. DL X1 by MECHANICAL SERVICE TECHNICIAN with grade 1 view. ETT passed through kvng glottis under direct visualizat ion atraumatic ally. Cuff to seal with minimal occlusive pressure. Placement confirmed. Secured at 21 cm at the teeth. Mucosa and teeth unchanged. DEBRIDEMENT 04/26/2018 Open wound of lower back 9:30 AM CDT and pelvis without penetration into retroperitoneum, initial encounter Case Notes TF, EST 90 MIN, PRONE POSITION Special Needs TF, EST 90 MIN, PRONE POSITION TYPE AND SCREEN Routine 04/26/2018 4:35 AM CDT ZZESTIMATED GFR Routine 04/25/2018 2:18 AM CDT HC COMPLETE BLD COUNT Routine 04/25/2018 W/AUTO DIFF 2:18 AM CDT BASIC METABOLIC PANEL Routine 04/25/2018 2:18 AM CDT VANCOMYCIN LEVEL, TROUGH Timed 04/24/2018 9:00 AM CDT HC CATH DUAL LUMEN PICC Routine 04/22/2018 6:54 PM CDT HC US GUIDED VASCULAR Routine 04/22/2018 ACCESS 6:54 PM CDT HC CVL PICC INSERT 5 YRS Routine 04/22/2018 OR > W/O IMG GUID 6:54 PM CDT XR PICC CHEST PORTABLE Routine 04/22/2018 Wound dehiscence 6:48 PM CDT FUNGUS SMEAR Routine 04/22/2018 8:20 AM CDT GRAM STAIN Routine 04/22/2018 8:20 AM CDT AFB STAIN Routine 04/22/2018 8:20 AM CDT AFB CULTURE Routine 04/22/2018 8:20 AM CDT FUNGUS CULTURE Routine 04/22/2018 8:20 AM CDT ANAEROBIC CULTURE Routine 04/22/2018 8:20 AM CDT AEROBIC CULTURE Routine 04/22/2018 8:20 AM CDT URINALYSIS SCREEN AND Routine 04/21/2018 MICROSCOPY, WITH REFLEX 3:36 PM CDT TO CULTURE URINE CULTURE Routine 04/21/2018 3:36 PM CDT US DUPLEX VENOUS LOWER Today 04/21/2018 EXTREMITY BILATERAL 8:48 AM CDT POTASSIUM LEVEL STAT 04/20/2018 6:23 PM CDT ALT (SGPT) STAT 04/20/2018 6:23 PM CDT AST (SGOT) STAT 04/20/2018 6:23 PM CDT ANAEROBIC CULTURE Routine 04/20/2018 5:27 PM CDT GRAM STAIN Routine 04/20/2018 5:27 PM CDT AEROBIC CULTURE Routine 04/20/2018 5:27 PM CDT ZZESTIMATED GFR STAT 04/20/2018 5:21 PM CDT PREALBUMIN LEVEL STAT 04/20/2018 5:21 PM CDT PROTHROMBIN TIME WITH INR STAT 04/20/2018 5:21 PM CDT PARTIAL THROMBOPLASTIN STAT 04/20/2018 TIME (PTT) 5:21 PM CDT C-REACTIVE PROTEIN STAT 04/20/2018 5:21 PM CDT SEDIMENTATION RATE STAT 04/20/2018 5:21 PM CDT BASIC METABOLIC PANEL STAT 04/20/2018 5:21 PM CDT ECG 12-LEAD STAT 04/20/2018 5:13 PM CDT BLOOD CULTURE, AEROBIC & Routine 04/20/2018 ANAEROBIC 4:55 PM CDT ECG ED PRELIMINARY Routine 04/20/2018 INTERPRETATION 4:32 PM CDT ZZESTIMATED GFR STAT 04/20/2018 4:05 PM CDT SEDIMENTATION RATE STAT 04/20/2018 4:05 PM CDT C-REACTIVE PROTEIN STAT 04/20/2018 4:05 PM CDT COMPREHENSIVE METABOLIC STAT 04/20/2018 PANEL 4:05 PM CDT HC COMPLETE BLD COUNT STAT 04/20/2018 W/AUTO DIFF 4:05 PM CDT C-REACTIVE PROTEIN STAT 04/13/2018 10:30 AM CDT SEDIMENTATION RATE STAT 04/13/2018 10:30 AM CDT URINALYSIS SCREEN AND Routine 04/10/2018 MICROSCOPY, WITH REFLEX 9:40 PM CDT TO CULTURE URINE CULTURE Routine 04/10/2018 9:40 PM CDT after 04/10/2018 Results * CBC with platelet and differential (06/06/2018) Only the most recent of 9 results within the time period is included. HCT 34.5 % WBC 6.9 10*3/mL Platelet count 262 HGB 11.1 g/dL Neutrophils 61 Lymphocytes 30 Monocytes 6 Eosinophils 3 Basophils 0 Specimen Blood Narrative Performed At * C-reactive protein (06/06/2018) Only the most recent of 8 results within the time period is included. CRP 3.1 mg/dL Specimen Blood Narrative Performed At * Basic metabolic panel (06/06/2018) Only the most recent of 8 results within the time period is included. Creatinine 0.77 mg/dL BUN 24 mg/dL Specimen Blood Narrative Performed At * XR Spine Scoliosos 2-3 Views (06/01/2018 1:20 PM CDT) Specimen Narrative Performed At EXAMINATION:XR SPINE SCOLIOSIS 2-3 VIEWS HM [facility]IANT CLINICAL HISTORY:M41.9 Scoliosisunspecified, SCOLIOSIS COMPARISON:Scoliosis x-ray dated April 07, 2018 Frontal and lateral views of entire spine was performed per scoliosis protocol. IMPRESSION: Fusion hardware is again noted from T10 down to the sacrum. Hardware appears grossly stable. There is no acute compression deformity. There is mild broad-based 8 degrees leftward curvature at T2. There is 6 degrees rightward curvature at T6 and 5 degrees leftward curvature at T8-9. There is mild broad-based 8 degrees rightward curvature of the thoracolumbar spine centered at L2. There is 1 cm leftward coronal balance. The curvature spine stable to slightly improved. Femoral head heights are symmetric. There is 0 sagittal balance which is improved. Calcified granulomas are noted in the right lower lung. Otherwise, lungs are clear. Bowel gas pattern is nonobstructive. Visualized ribs are intact. Heart size is normal. Overall findings show stable fusion hardware changes and mild curvature of the spine measuring less than 10 degrees which is slightly improved from prior exam. [facility]-[id number] Procedure Note Hm Interface, Radiology Results Incoming - 06/01/2018 3:42 PM CDT EXAMINATION: XR SPINE SCOLIOSIS 2-3 VIEWS CLINICAL HISTORY: M41.9 Scoliosis unspecified, SCOLIOSIS COMPARISON: Scoliosis x-ray dated April 07, 2018 Frontal and lateral views of entire spine was performed per scoliosis protocol. IMPRESSION: Fusion hardware is again noted from T10 down to the sacrum. Hardware appears grossly stable. There is no acute compression deformity. There is mild broad- based 8 degrees leftward curvature at T2. There is 6 degrees rightward curvature at T6 and 5 degrees leftward curvature at T8-9. There is mild broad-based 8 degrees rightward curvature of the thoracolumbar spine centered at L2. There is 1 cm leftward coronal balance. The curvature spine stable to slightly improved. Femoral head heights are symmetric. There is 0 sagittal balance which is improved. Calcified granulomas are noted in the right lower lung. Otherwise, lungs are clear. Bowel gas pattern is nonobstructive. Visualized ribs are intact. Heart size is normal. Overall findings show stable fusion hardware changes and mild curvature of the spine measuring less than 10 degrees which is slightly improved from prior exam. [facility]-[id number] Performing Organization Address City/State/Zipcode Phone Number [facility] [address] [place] [address] * Prothrombin time with INR (05/16/2018 7:56 AM CDT) Only the most recent of 10 results within the time period is included. Prothrombin 25.0 (H) 12.0 - 15.0 sec [facility] DEPARTMENT time OF PATHOLOGY AND GENOMIC MEDICINE INR 2.2 [facility] DEPARTMENT Comment: OF PATHOLOGY The International Normalized AND GENOMIC Ratio (INR) is a therapeutic MEDICINE monitoring tool for patients who are stable on oral anticoagulant therapy. An INR of 2.0-3.0 is suggested for deep vein thrombosis/pulmonary embolism. Specimen Blood Performing Organization Address City/[facility] Phone Number [facility] OF [address] [place] [phone] PATHOLOGY AND GENOMIC MEDICINE * Hepatic function panel (05/14/2018 5:15 AM CDT) Pathologist [facility] Albumin 2.8 (L) 3.5 - 5.0 g/dL [facility] DEPARTMENT OF PATHOLOGY AND GENOMIC MEDICINE Total bilirubin <0.2 0.0 - 1.2 mg/dL [facility] DEPARTMENT OF PATHOLOGY AND GENOMIC MEDICINE Bilirubin <0.2 0.0 - 0.3 mg/dL [facility] DEPARTMENT direct OF PATHOLOGY AND GENOMIC MEDICINE Alkaline 104 35 - 104 U/L [facility] DEPARTMENT phosphatase OF PATHOLOGY AND GENOMIC MEDICINE Protein 6.4 6.3 - 8.3 g/dL [facility] DEPARTMENT Comment: OF PATHOLOGY [place] AND GENOMIC 4.6-7.0 g/dL MEDICINE 1 week 4.4-7.6 g/dL 7 months-1year 5.1-7.3 g/dL 1-2 years5.6-7 .5 g/dL >3 years6.0-8 .0 g/dL 18-150 6.3-8.3 g/dL ALT 13 5 - 50 U/L [facility] DEPARTMENT OF PATHOLOGY AND GENOMIC MEDICINE AST 17 10 - 35 U/L [facility] DEPARTMENT OF PATHOLOGY AND GENOMIC MEDICINE Specimen Plasma specimen Performing Organization Address City/[facility]ode Phone Number [facility] DEPARTMENT [address] [address] PATHOLOGY AND GENOMIC MEDICINE * Estimated GFR (05/13/2018 3:45 AM CDT) Only the most recent of 6 results within the time period is included. GFR Non Af Amer 85 mL/min/1.73 m2 [facility] DEPARTMENT OF PATHOLOGY AND GENOMIC MEDICINE GFR Af Amer >90 mL/min/1.73 m2 [facility] DEPARTMENT Comment: OF PATHOLOGY Chronic kidney disease: <60 AND GENOMIC mL/min/1.73m2 MEDICINE Kidney failure: <15 mL/min/1.73m2 The estimated GFR is calculated from the IDMS-traceable Modification of Diet in Renal Disease Equation. The accuracy of the calculation is poor when the creatinine is normal. Calculated values >90 mL/min/1.73m2 are not reported. This equation has not been validated in children (<18 years), women, the elderly (>70 years), or ethnic groups other than Caucasians and Americans. Specimen Plasma specimen Performing Organization Address City/[facility]ode Phone Number [facility] [place] [address] PATHOLOGY AND [facility] MEDICINE * Thyroid stimulating hormone (05/13/2018 3:45 AM CDT) TSH 2.87 0.27 - 4.20 uIU/mL [facility] DEPARTMENT OF PATHOLOGY [facility] MEDICINE Specimen Plasma specimen Performing Organization Address [facility] [place] [address] PATHOLOGY AND [facility] * Phosphorus level (05/13/2018 3:45 AM CDT) Phosphorus 3.5 2.4 - 4.5 mg/dL [facility] DEPARTMENT OF PATHOLOGY AND GENOMIC MEDICINE Specimen Plasma specimen Performing Organization Address [facility] Phone Number [facility] [place] [place] [address] PATHOLOGY AND [facility] * Magnesium level (05/13/2018 3:45 AM CDT) Magnesium 1.8 1.6 - 2.4 mg/dL [facility] DEPARTMENT OF PATHOLOGY AND GENOMIC MEDICINE Specimen Plasma specimen Performing Organization Address [facility] [place] [address] PATHOLOGY AND [facility] MEDICINE * Ferritin level (05/13/2018 3:45 AM CDT) Ferritin level 95 13 - 150 ng/mL [facility] DEPARTMENT OF PATHOLOGY AND GENOMIC MEDICINE Specimen Plasma specimen Performing Organization Address [facility] Phone Number [facility] [place] [address] PATHOLOGY AND [facility] MEDICINE * Vitamin B12 level (05/13/2018 3:45 AM CDT) Vitamin B12 358 211 - 946 pg/mL [facility] DEPARTMENT Comment: OF PATHOLOGY Significant overlap exists AND GENOMIC between normal and deficiency MEDICINE states. However, most patients with deficiencies will have Serum B12 <200 pg/mL. Specimen Serum Performing Organization Address City/State/Zipcode Phone Number [facility] DEPARTMENT OF [address] [place] [address] PATHOLOGY AND GENOMIC MEDICINE * Lipid panel (05/13/2018 3:45 AM CDT) Cholesterol 167 <200 mg/dL [facility] DEPARTMENT OF PATHOLOGY AND GENOMIC MEDICINE Triglycerides 253 (H) <150 mg/dL [facility] DEPARTMENT OF PATHOLOGY AND GENOMIC MEDICINE HDL cholesterol 28 (L) >40 mg/dL [facility] DEPARTMENT OF PATHOLOGY AND GENOMIC MEDICINE LDL cholesterol 90Comment: Result obtained by <100 mg/dL [facility] DEPARTMENT direct LDL measurement OF PATHOLOGY AND GENOMIC MEDICINE Lipid panel SeeBelow [facility] DEPARTMENT interpretation Comment: OF PATHOLOGY Total Cholesterol AND GENOMIC (mg/dL) MEDICINE <200 Desirable 200-239Borderline -high >=240High Triglycerides (mg/dL) <150 Normal 150-199Borderline -high 200-499High >=500Very high HDL Cholesterol (mg/dL) <40Low (male) <40Low (female) LDL Cholesterol (mg/dL) <100 Optimal 100-129Near or above optimal 130-159Borderline -high 160-189High >=190Very high Risk Catergories that modify LDL goals. Risk Catergories LDL goal (mg/dL) CHD and CHD risk equivalent<100 (10-year risk >20%) Multiple (2+) risk factors <130 (10-year risk=<20%) 0-1 risk factors <160 (<10-year risk) Defining levels of lipids in metabolic syndrome Triglycerides >=150 mg/dL HDL Cholesterol Men <40 mg/dL Women <40 mg/dL Non-HDL cholesterol is a second target for therapy in persons with high triglycerides (>=200 mg/dL) Specimen Plasma specimen Performing Organization Address City/State/Zipcode Phone Number [facility] DEPARTMENT OF [address] [place] [address] PATHOLOGY AND GENOMIC MEDICINE * CBC hemogram (05/12/2018 4:02 AM CDT) Only the most recent of 3 results within the time period is included. WBC 3.69 (L) 4.50 - 11.00 k/uL [facility] DEPARTMENT OF PATHOLOGY AND GENOMIC MEDICINE RBC 2.90 (L) 4.20 - 5.50 m/uL [facility] DEPARTMENT OF PATHOLOGY AND GENOMIC MEDICINE HGB 8.8 (L) 12.0 - 16.0 g/dL [facility] DEPARTMENT OF PATHOLOGY AND GENOMIC MEDICINE HCT 28.0 (L) 37.0 - 47.0 % [facility] DEPARTMENT OF PATHOLOGY AND GENOMIC MEDICINE MCV 96.6 82.0 - 100.0 fL [facility] DEPARTMENT OF PATHOLOGY AND GENOMIC MEDICINE MCH 30.3 27.0 - 34.0 pg [facility] DEPARTMENT OF PATHOLOGY AND GENOMIC MEDICINE MCHC 31.4 31.0 - 37.0 g/dL [facility] DEPARTMENT OF PATHOLOGY AND GENOMIC MEDICINE RDW - SD 60.1 (H) 37.0 - 55.0 fL [facility] DEPARTMENT OF PATHOLOGY AND GENOMIC MEDICINE MPV 9.8 8.8 - 13.2 fL [facility] DEPARTMENT OF PATHOLOGY AND GENOMIC MEDICINE Platelet count 222 150 - 400 k/uL [facility] DEPARTMENT OF PATHOLOGY AND GENOMIC MEDICINE Nucleated RBC 0.00 /100 WBC [facility] DEPARTMENT OF PATHOLOGY AND GENOMIC MEDICINE Specimen Blood Performing Organization Address City/[facility]/Zipcode Phone Number [facility] DEPARTMENT OF [address] [place] [address] PATHOLOGY AND GENOMIC MEDICINE * Sedimentation rate (05/11/2018 11:12 AM CDT) Only the most recent of 5 results within the time period is included. Sedimentation 87 (H) 0 - 20 mm/hr [facility] DEPARTMENT rate OF PATHOLOGY AND GENOMIC MEDICINE Specimen Blood Performing Organization Address City/[facility] Phone Number [facility] DEPARTMENT OF [address] [place] [address] PATHOLOGY AND GENOMIC MEDICINE * Pv duplex venous upper extremity (05/08/2018 9:02 AM CDT) Specimen Narrative Performed At [facility] Vascular Ultrasound Laboratory Upper Extremity Venous Report [address] [place] [address] Pat.Name:HELLEN SEGURA Pat.ID:[id number] .Date: 05/08/2018 Refer.MD:JONATHAN IRIZARRY MD Exam Time: 8:46:00 AMStudy Type:UE Venous Height:58inWeight:150lb BSA: 1.61 m2 DOBAge:1960,58Y Sex: FEMALESonogrphr: Abhijit Ledesma, ERICK, PAULINO Pat. Stat.:Inpatient Room:[address] TapeVol: SB, CPT - 4: 33244 Echo Event ID:[id number] Order ID:[id number] Reason for Study:Possible thrombus found with PICC Team, Evaluate RUE for DVT. Procedures:Colorflow, Grayscale/2D, Pulsed wave Doppler Race:C SUMMARY: DUPLEX SCAN OBSERVATIONS Right Left IJNormal SubclavianPartial Normal AxillaryNormal BrachialNormal BasilicNormal CephalicNormal RIGHT: The subclavian vein is partially compressible with mobile echogenic material noted within the vessel lumen. The remaining visualized veins are patient and compressible. Colorflow and Doppler signals demonstrates spontaneous and phasic flow with augmentation. PRELIMINARY FINDINGS 1. Partial, mobile thrombus noted in the right subclavian vein. Preliminary findings reported to Deborah KOLB at 9:06 AM on 05/08/18. PHYSICIAN INTERPRETATION Venous examination of the right upper extremity and neck demonstrated partial, mobile thrombus in the right subclavian vein. Signed 05/08/2018 01:30 PM Gary Mendes MD, RPVI Procedure Note Interface, Radiology Results In - 05/08/2018 1:30 PM CDT Vascular Ultrasound Laboratory Upper Extremity Venous Report [address] [place] [address] Pat.Name: HELLEN SEGURA Pat.ID: [id number] St.Date: 05/08/2018 Refer.MD: JONATHAN IRIZARRY MD Exam Time: 8:46:00 AM Study Type:UE Venous Height: 58in Weight: 150lb BSA: 1.61 m2 Age: 2 1960,58Y Sex: FEMALE Sonogrphr: ERICK Farrar, PAULINO Pat. Stat.:Inpatient Room: [address] Tape Vol: SB, CPT - 4: 35741 Echo Event ID:[id number] Order ID: [id number] Reason for Study:Possible thrombus found with PICC Team, Evaluate RUE for DVT. Procedures:Colorflow, Grayscale/2D, Pulsed wave Doppler Race: C SUMMARY: DUPLEX SCAN OBSERVATIONS Right Left IJ Normal Subclavian Partial Normal Axillary Normal Brachial Normal Basilic Normal Cephalic Normal RIGHT: The subclavian vein is partially compressible with mobile echogenic material noted within the vessel lumen. The remaining visualized veins are patient and compressible. Colorflow and Doppler signals demonstrates spontaneous and phasic flow with augmentation. PRELIMINARY FINDINGS 1. Partial, mobile thrombus noted in the right subclavian vein. Preliminary findings reported to Deborah KOLB at 9:06 AM on 05/08/18. PHYSICIAN INTERPRETATION Venous examination of the right upper extremity and neck demonstrated partial, mobile thrombus in the right subclavian vein. Signed 05/08/2018 01:30 PM Gary Mendes MD, RPVI Performing Organization Address [facility] Phone Number [facility] [address] [place] [address] * Vancomycin level, trough (05/07/2018 4:20 PM CDT) Only the most recent of 2 results within the time period is included. Vancomycin, 19.5 10.0 - 20.0 ug/mL [facility] DEPARTMENT trough Comment: OF PATHOLOGY Therapeutic Ranges: AND GENOMIC Peak 30.0 - MEDICINE 40.0 ug/mL Mbfbam93.0 - 20.0 ug/mL Specimen Serum Performing Organization Address [facility] Phone Number [facility] DEPARTMENT OF [address] [place] [address] PATHOLOGY AND GENOMIC MEDICINE * XR Picc Chest Portable (05/06/2018 6:47 PM CDT) Only the most recent of 2 results within the time period is included. Specimen Narrative Performed At PROCEDURE:XR PICC CHEST PORTABLE [facility] CLINICAL HISTORY:Z87.39 Personal history of other diseases of the musculoskeletal system and connective tissue, Lont-term antibiotics COMPARISON:None. TECHNIQUE: A single AP view of the chest was performed in the supine position following insertion of a PICC line. FINDINGS: A left transbrachial PICC line is noted with the tip projected just below the level of the atriocaval junction. No gross active pleural, parenchymal, or mediastinal abnormality is noted. IMPRESSION: Interval satisfactory insertion of PICC line. [id number] Procedure Note Interface, Radiology Results Incoming - 05/06/2018 6:53 PM CDT PROCEDURE: XR PICC CHEST PORTABLE CLINICAL HISTORY: Z87.39 Personal history of other diseases of the musculoskeletal system and connective tissue, Lont-term antibiotics COMPARISON: None. TECHNIQUE: A single AP view of the chest was performed in the supine position following insertion of a PICC line. FINDINGS: A left transbrachial PICC line is noted with the tip projected just below the level of the atriocaval junction. No gross active pleural, parenchymal, or mediastinal abnormality is noted. IMPRESSION: Interval satisfactory insertion of PICC line. [id number] Performing Organization Address City/State/Zipcode Phone Number [facility] MARTIN [address] [place] [address] * PICC INSERTION (05/06/2018 6:19 PM CDT) Narrative Performed At America Escobar RN 05/06/20186:28 PM PICC insertion Date/Time: 05/06/2018 6:19 PM Performed by: MAYA FELICIANO Authorized by: JONATHAN IRIZARRY Consent: Consent obtained:Verbal Consent given by:Patient Risks discussed: arterial puncture, incorrect placement, nerve damage, infection, bleeding, superficial thrombus and deep vein thrombus Alternatives discussed:No treatment, delayed treatment and alternative treatment [place] protocol: Procedure explained and questions answered to patient or proxy's satisfaction: yes Relevant documents present and verified: yes Test results available and properly labeled: yes Imaging studies available: yes Required blood products, implants, devices, and special equipment available: yes Site/side marked: yes Immediately prior to procedure, a time out was called: yes Patient identity confirmed:Arm band, verbally with patient and hospital-assigned identification number Pre-procedure details: Hand hygiene: Hand hygiene performed prior to insertion Sterile barrier technique: All elements of maximal sterile technique followed Skin preparation:ChloraPrep Skin preparation agent: Skin preparation agent completely dried prior to procedure Anesthesia (see MAR for exact dosages): Anesthesia method:Local infiltration Local anesthetic:Lidocaine 1% w/o epi Route of administration:Subcutaneous PICC Line Placement Details (Will create an LDA): Patient position:Flat Vessel Size (mm):5 Indication:Known long-term IV therapy Location:Left basilic Site selection rationale:Right basilic vein non-compressible Device Type:Non-valved Catheter size:5 Fr PICC Characteristics: Catheter Brand:BioFlo PICC External Catheter Length (cm):0 Internal Catheter Length (cm):34 Total Catheter Length (cm):34 Catheter Lot Number:[id number] Catheter Expiration Date:12/23/1919 Procedure Details: Landmarks identified: yes Ultrasound guidance: yes Sterile ultrasound techniques: Sterile gel and sterile probe covers were used Number of attempts:1 Number of PICC kits used during procedure:1 Purpose of procedure:PICC Placement Successful PICC Placement: Yes Patency/Placement:Flushes without difficulty, flushed with 10 mL normal saline, extension tubing placed, injection cap placed, positive blood return and x-ray placement verified PICC placed utlizing ultrasound-guided Modified Seldinger Technique: Yes Dressing/Securement:Catheter securement device and antimicrobial dressing applied Blood Loss Amount:Less than 20 mL Post-Procedure Details: Post-procedure:Dressing applied Tip placement confirmed by chest x-ray: Yes Patient tolerance of procedure:Tolerated well, no immediate complications * Fungus smear (05/05/2018 5:05 PM CDT) Only the most recent of 5 results within the time period is included. Fungus smear No fungi observed. [facility] DEPARTMENT Comment: OF PATHOLOGY Specimen Information AND GENOMIC Specimen Source: Tissue MEDICINE Specimen Site: Back, lower Specimen Tissue - Back, [facility] Organization Address [facility] Phone Number [facility] DEPARTMENT OF [address] [place] [address] PATHOLOGY AND GENOMIC MEDICINE * AFB culture (05/05/2018 5:05 PM CDT) Only the most recent of 5 results within the time period is included. AFB culture No growth after 6 weeks of [facility] DEPARTMENT isolate incubation. OF PATHOLOGY Comment: AND GENOMIC Specimen Information MEDICINE Specimen Source: Tissue Specimen Site: Back, lower Specimen Tissue - Back, [facility] Performing Organization Address City/[facility] Phone Number [facility] DEPARTMENT OF [address] [place] [address] PATHOLOGY AND GENOMIC MEDICINE * Aerobic culture (05/05/2018 5:05 PM CDT) Only the most recent of 6 results within the time period is included. Aerobic culture No growth after 3 days. [facility] DEPARTMENT isolate Comment: OF PATHOLOGY Specimen Information AND GENOMIC Specimen Source: Tissue MEDICINE Specimen Site: Back, lower Specimen Tissue - Back, lower Performing Organization Address [facility] Phone Number [facility] DEPARTMENT OF [address] [place] [address] PATHOLOGY AND GENOMIC MEDICINE * Gram stain (05/05/2018 5:05 PM CDT) Only the most recent of 6 results within the time period is included. Gram stain Rare WBC's [facility] DEPARTMENT isolate No organisms seen OF PATHOLOGY Comment: AND GENOMIC Specimen Information MEDICINE Specimen Source: Tissue Specimen Site: Back, lower Specimen Tissue - Back, lower Performing Organization Address [facility] Phone Number [facility] DEPARTMENT OF [address] [place] [address] PATHOLOGY AND GENOMIC MEDICINE * AFB stain (05/05/2018 5:05 PM CDT) Only the most recent of 5 results within the time period is included. AFB stain No acid fast bacilli (AFB) [facility] DEPARTMENT seen. OF PATHOLOGY Comment: AND GENOMIC Specimen Information MEDICINE Specimen Source: Tissue Specimen Site: Back, lower Specimen Tissue - Back, lower Performing Organization Address [facility] Phone Number [facility] DEPARTMENT OF [address] [place] [address] PATHOLOGY AND GENOMIC MEDICINE * Fungus culture (05/05/2018 5:05 PM CDT) Only the most recent of 5 results within the time period is included. Fungus culture No growth after 4 weeks of [facility] DEPARTMENT isolate incubation. OF PATHOLOGY Comment: AND GENOMIC Specimen Information MEDICINE Specimen Source: Tissue Specimen Site: Back, lower Specimen Tissue - Back, lower Performing Organization Address [facility] Phone Number [facility] DEPARTMENT OF [address] [place] [address] PATHOLOGY AND GENOMIC MEDICINE * Anaerobic culture (05/05/2018 5:05 PM CDT) Only the most recent of 6 results within the time period is included. Anaerobic No anaerobic organisms [facility] DEPARTMENT culture isolate isolated. OF PATHOLOGY Comment: AND GENOMIC Specimen Information MEDICINE Specimen Source: Tissue Specimen Site: Back, lower Specimen Tissue - Back, lower Performing Organization Address [facility] Phone Number [facility] DEPARTMENT OF [address] [place] [address] PATHOLOGY AND GENOMIC MEDICINE * Type and screen (05/04/2018 3:15 AM CDT) Only the most recent of 2 results within the time period is included. ABO grouping A [facility] DEPARTMENT OF PATHOLOGY AND GENOMIC MEDICINE Rh type POS [facility] DEPARTMENT OF PATHOLOGY AND GENOMIC MEDICINE Antibody screen NEG [facility] DEPARTMENT (gel) OF PATHOLOGY AND GENOMIC MEDICINE Specimen Blood Performing Organization Address City/State/Zipcode Phone Number [facility] DEPARTMENT OF [address] [place] [address] PATHOLOGY AND GENOMIC MEDICINE * PICC INSERTION (04/22/2018 6:54 PM CDT) Narrative Performed At Fito Rico RN 04/22/20186:58 PM PICC insertion Date/Time: 04/22/2018 6:55 PM Performed by: FITO RICO Authorized by: JONATHAN IRIZARRY Consent: Consent obtained:Verbal Consent given by:Patient Risks discussed: arterial puncture, incorrect placement, nerve damage, infection, bleeding, superficial thrombus and deep vein thrombus Alternatives discussed:Delayed treatment and alternative treatment [place] protocol: Procedure explained and questions answered to patient or proxy's satisfaction: yes Relevant documents present and verified: yes Test results available and properly labeled: yes Imaging studies available: yes Required blood products, implants, devices, and special equipment available: yes Site/side marked: yes Immediately prior to procedure, a time out was called: yes Patient identity confirmed:Provided demographic data, arm band, verbally with patient and hospital-assigned identification number Pre-procedure details: Hand hygiene: Hand hygiene performed prior to insertion Sterile barrier technique: All elements of maximal sterile technique followed Skin preparation:ChloraPrep Skin preparation agent: Skin preparation agent completely dried prior to procedure Anesthesia (see MAR for exact dosages): Anesthesia method:Local infiltration Local anesthetic:Lidocaine 1% w/o epi PICC Line Placement Details (Will create an LDA): Patient position:Flat Vessel Size (mm):4 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: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 IV therapy Location:Right brachial Device Type:Non-valved Catheter size:5 Fr PICC Characteristics: Catheter Brand:BioFlo PICC Internal Catheter Length (cm):29 Total Catheter Length (cm):31 Catheter Lot Number:[id number] Catheter Expiration Date:12/23/2019 Procedure Details: Landmarks identified: yes Ultrasound guidance: yes Sterile ultrasound techniques: Sterile gel and sterile probe covers were used Number of attempts:1 Number of PICC kits used during procedure:1 Purpose of procedure:PICC Placement Successful PICC Placement: Yes Patency/Placement:Flushes without difficulty, flushed with 10 mL normal saline, positive blood return, x-ray placement verified and injection cap placed Dressing/Securement:Antimicrobial dressing dry and intact, catheter securement device and antimicrobial dressing applied Blood Loss Amount:Less than 20 mL Post-Procedure Details: Tip placement confirmed by chest x-ray: Yes Tip position adjusted per chest x-ray: Yes PICC pulled back (cm):2 Tip placement confirmed by repeat chest x-ray: Yes Patient tolerance of procedure:Tolerated well, no immediate complications Comments: Patient back is hurting unable to take proper X-ray. Patient is not able to lay on her back. * Urinalysis screen and microscopy, with reflex to culture (04/21/2018 3:36 PM CDT) Only the most recent of 2 results within the time period is included. Specimen site Random void [facility] DEPARTMENT OF PATHOLOGY AND GENOMIC MEDICINE Color, UA Yellow [facility] DEPARTMENT OF PATHOLOGY AND GENOMIC MEDICINE Appearance, UA Clear [facility] DEPARTMENT OF PATHOLOGY AND GENOMIC MEDICINE Specific 1.021 1.001 - 1.035 [facility] DEPARTMENT gravity, OF PATHOLOGY AND GENOMIC MEDICINE pH, UA 5.0 5.0 - 8.5 [facility] DEPARTMENT OF PATHOLOGY AND GENOMIC MEDICINE Protein, UA Negative Negative [facility] DEPARTMENT OF PATHOLOGY AND GENOMIC MEDICINE Glucose, UA Negative Negative [facility] DEPARTMENT OF PATHOLOGY AND GENOMIC MEDICINE Ketones, UA Negative Negative [facility] DEPARTMENT OF PATHOLOGY AND GENOMIC MEDICINE Bilirubin, UA Negative Negative [facility] DEPARTMENT OF PATHOLOGY AND GENOMIC MEDICINE Blood, UA Negative Negative [facility] DEPARTMENT OF PATHOLOGY AND GENOMIC MEDICINE Nitrite, UA Negative Negative [facility] DEPARTMENT OF PATHOLOGY AND GENOMIC MEDICINE Urobilinogen, 2.0 (A) <2.0 [facility] UA OF PATHOLOGY AND GENOMIC MEDICINE Leukocyte Negative Negative [facility] DEPARTMENT esterase, UA OF PATHOLOGY AND GENOMIC MEDICINE Epithelial >20 /HPF [facility] DEPARTMENT cells, UA OF PATHOLOGY AND GENOMIC MEDICINE WBC, UA 1 0 - 4 /HPF [facility] DEPARTMENT OF PATHOLOGY AND GENOMIC MEDICINE RBC, UA 1 0 - 5 /HPF [facility] DEPARTMENT OF PATHOLOGY AND GENOMIC MEDICINE Bacteria, UA Few None seen [facility] DEPARTMENT OF PATHOLOGY AND GENOMIC MEDICINE Yeast, UA None seen [facility] DEPARTMENT OF PATHOLOGY AND GENOMIC MEDICINE Yeast with None seen [facility] DEPARTMENT pseudohyphae, OF PATHOLOGY UA AND GENOMIC MEDICINE Specimen Urine Performing Organization Address City/State/Zipcode Phone Number [facility] DEPARTMENT OF [address] [place] [address] PATHOLOGY AND GENOMIC MEDICINE * Urine culture (04/21/2018 3:36 PM CDT) Only the most recent of 2 results within the time period is included. Urine culture SEE COMMENTComment: [facility] DEPARTMENT Bacteriuria screen negative. OF PATHOLOGY AND GENOMIC MEDICINE Specimen Performing Organization Address City/State/Zipcode Phone Number [facility] DEPARTMENT OF [address] [place] [address] PATHOLOGY AND GENOMIC MEDICINE * Us duplex venous lower extremity (04/21/2018 8:48 AM CDT) Specimen Narrative Performed At [facility] Vascular Ultrasound Laboratory Lower Extremity Venous Report [id number] [facility] [address], [place] [address] Pat.Name:HELLEN SEGURA Pat.ID:[id number] .Date: 04/21/2018 Refer.MD:JONATHAN IRIZARRY MD Exam Time: 8:20:00 AMStudy Type:LE Venous Height:54.43cm Weight:64kg BSA: 0.76 m2 DOBAge:1960,58Y Sex: FEMALESonogrphr: Jes Cohen RVT Pat. Stat.:Inpatient Room:[address] TapeVol: , CPT - 4: 62427 Echo Event ID:[id number] Order ID:[id number] Reason for Study:Bilateral leg edema.Rule out DVT. Procedures:Colorflow, Grayscale/2D, Pulsed wave Doppler Race:C SUMMARY: DUPLEX SCAN OBSERVATIONS Deep VeinsSuperficial Veins RightLeft RightLeft EIV GSV (prox) NormalNormal CFV Normal Normal (above knee) Femoral Normal Normal GSV (dist) Normal Normal Profunda Normal Normal (below knee) Popliteal Normal Normal PT (prox) Normal NormalSSV Normal Normal PT (dist) Normal Normal Peroneal Normal Normal RIGHT:There is normal compressibility with no evidence of echogenic material noted within the lumen of the visualized veins. Colorflow and Doppler signals are normal. LEFT:There is normal compressibility with no evidence of echogenic material noted within the lumen of the visualized veins. Colorflow and Doppler signals are normal. PRELIMINARY FINDINGS 1. No evidence of deep venous thrombosis of the visualized veins. PHYSICIAN INTERPRETATION 1.Venous examination of the both lower extremities demonstrates no evidence of venous thrombosis. Signed 04/21/2018 10:00 AM Ryland Shepard MD Procedure Note Interface, Radiology Results In - 04/21/2018 10:00 AM CDT Vascular Ultrasound Laboratory Lower Extremity Venous Report [address] [place] [address] Pat.Name: HELLEN SEGURA Pat.ID: [id number] St.Date: 04/21/2018 Refer.MD: JONATHAN IRIZARRY MD Exam Time: 8:20:00 AM Study Type:LE Venous Height: 54.43cm Weight: 64kg BSA: 0.76 m2 Age: 2 1960,58Y Sex: FEMALE Sonogrphr: Jes Cohen RVT Pat. Stat.:Inpatient Room: [address] Tape Vol: YM, CPT - 4: 78086 Echo Event ID:[id number] Order ID: [id number] Reason for Study:Bilateral leg edema. Rule out DVT. Procedures:Colorflow, Grayscale/2D, Pulsed wave Doppler Race: C SUMMARY: DUPLEX SCAN OBSERVATIONS Deep Veins Superficial Veins Right Left Right Left EIV GSV (prox) Normal Normal CFV Normal Normal (above knee) Femoral Normal Normal GSV (dist) Normal Normal Profunda Normal Normal (below knee) Popliteal Normal Normal PT (prox) Normal Normal SSV Normal Normal PT (dist) Normal Normal Peroneal Normal Normal RIGHT:There is normal compressibility with no evidence of echogenic material noted within the lumen of the visualized veins. Colorflow and Doppler signals are normal. LEFT:There is normal compressibility with no evidence of echogenic material noted within the lumen of the visualized veins. Colorflow and Doppler signals are normal. PRELIMINARY FINDINGS 1. No evidence of deep venous thrombosis of the visualized veins. PHYSICIAN INTERPRETATION 1. Venous examination of the both lower extremities demonstrates no evidence of venous thrombosis. Signed 04/21/2018 10:00 AM Ryland Shepard MD Performing Organization Address City/[facility]/Zipcode Phone Number [facility] [address] [place] [address] * ALT (SGPT) (04/20/2018 6:23 PM CDT) Pathologist [facility] ALT 8 5 - 50 U/L [facility] DEPARTMENT OF PATHOLOGY AND GENOMIC MEDICINE Specimen Plasma specimen Performing Organization Address [facility] Phone Number [facility] [place] [place] [address] PATHOLOGY AND [facility] MEDICINE * AST (SGOT) (04/20/2018 6:23 PM CDT) Pathologist [facility] AST 17 10 - 35 U/L [facility] DEPARTMENT OF PATHOLOGY AND GENOMIC MEDICINE Specimen Plasma specimen Performing Organization Address [facility] Phone Number [facility] [place] [place] [address] PATHOLOGY AND [facility] MEDICINE * Potassium level (04/20/2018 6:23 PM CDT) [facility] Potassium 3.9 3.5 - 5.0 mEq/L [facility] DEPARTMENT OF PATHOLOGY AND GENOMIC MEDICINE Specimen Plasma specimen Performing Organization [facility] Number [facility] [place] [place] [address] PATHOLOGY AND [facility] MEDICINE * Partial thromboplastin time, activated (04/20/2018 5:21 PM CDT) [facility] PTT 31.5 23.0 - 36.0 sec [facility] DEPARTMENT Comment: OF PATHOLOGY PTT therapeutic range for AND GENOMIC unfractionated heparin is MEDICINE 61.0-112.0 seconds which corresponds to Anti-Xa 0.3-0.7 U/ml. Specimen Blood Performing Organization Address [facility] [place] [address] PATHOLOGY AND [facility] MEDICINE * Prealbumin level (04/20/2018 5:21 PM CDT) [facility] Prealbumin 20 16 - 32 mg/dL [facility] DEPARTMENT OF PATHOLOGY AND GENOMIC MEDICINE Specimen Serum Performing Organization [facility] Phone Number [address] [place] [address] PATHOLOGY AND GENOMIC MEDICINE * ECG 12 lead (04/20/2018 5:13 PM CDT) Ventricular 72 [facility]USE rate Atrial rate 72 [facility] OR interval 106 [facility] QRSD interval 66 [facility] QT interval 406 [facility] QTC interval 444 [facility] MUSE P axis 1 58 [facility] MUSE QRS axis 1 57 [facility] MUSE T wave axis -22 [facility] MUSE EKG impression Sinus rhythm with short [facility] MUSE OR-Nonspecific ST and T wave abnormality-Abnormal ECG-In automated comparison with ECG of 23-MAR-2018 13:35,-T wave inversion now evident in Inferior leads-T wave inversion now evident in Anterior leads- Specimen Performing Organization Address [facility] Phone Number [address] [address] * Blood culture, aerobic & anaerobic (04/20/2018 4:55 PM CDT) Blood culture Staphylococcus epidermidis [facility] DEPARTMENT isolate Anaerobic only: OF PATHOLOGY (A) AND GENOMIC Comment: MEDICINE Specimen Information Specimen Source: Blood Specimen Site: Arm, left Specimen Blood - Arm, left Antibiotic Method Susceptibility Organism Ampicillin MAGUI mcg/mL: Resistant Staphylococcus epidermidis Clindamycin MAGUI >2 mcg/mL: Resistant Staphylococcus epidermidis Erythromycin MAGUI >4 mcg/mL: Resistant Staphylococcus epidermidis Levofloxacin MAGUI >4 mcg/mL: Resistant Staphylococcus epidermidis Linezolid MAGUI 2 mcg/mL: Susceptible Staphylococcus epidermidis Minocycline MAGUI <=1 mcg/mL: Susceptible Staphylococcus epidermidis Oxacillin MAGUI >1 mcg/mL: Resistant Staphylococcus epidermidis Penicillin G MAGUI >1 mcg/mL: Resistant Staphylococcus epidermidis Tetracycline MAGUI 2 mcg/mL: Susceptible Staphylococcus epidermidis Vancomycin MAGUI 2 mcg/mL: Susceptible Staphylococcus epidermidis Trimethoprim/Sulfamethoxazole MAGUI >2/38 mcg/mL: Resistant Staphylococcus epidermidis Performing Organization Address [facility] Phone Number [facility] DEPARTMENT OF [address] [place] [address] PATHOLOGY AND GENOMIC MEDICINE * ECG ED Preliminary Interpretation - NOT AN ORDER (04/20/2018 4:32 PM CDT) Narrative Performed At Ghazala Rodriguez MD 04/23/20187:05 AM ECG ED Preliminary Interpretation - Not an Order Performed by: GHAZALA RODRIGUEZ Authorized by: GHAZALA RODRIGUEZ ECG reviewed by ED Physician in the absence of a automobile detailer: yes Interpretation: Interpretation: abnormal Rate: ECG rate:72 ECG rate assessment: normal Rhythm: Rhythm: sinus rhythm QRS: QRS axis:Normal QRS intervals:Normal Comments: Sinus rhythm with short OR. Intervals otherwise normal. EKG: This EKG was reviewed and interpreted by me contemporaneously.This was a good tracing.There is a normal sinus rhythm.There is a normal rate.There are narrow complexes.There is a normal axis.There is no ST elevation o r depression. * Comprehensive metabolic panel (04/20/2018 4:05 PM CDT) Sodium 140 135 - 148 mEq/L [facility] DEPARTMENT OF PATHOLOGY AND [email or web address] MEDICINE Potassium SEE COMMENT 3.5 - 5.0 mEq/L [facility] DEPARTMENT Comment: OF PATHOLOGY Footnote--------- AND GENOMIC Unable to perform testing, MEDICINE specimen is HEMOLYZED.Recollect requested for K,AST,ALT (tests). Chloride 99 98 - 112 mEq/L [facility] DEPARTMENT OF PATHOLOGY AND GENOMIC MEDICINE CO2 28 24 - 31 mEq/L [facility] DEPARTMENT OF PATHOLOGY AND GENOMIC MEDICINE Anion gap 13@ANIO 7 - 15 mEq/L [facility] DEPARTMENT OF PATHOLOGY AND GENOMIC MEDICINE BUN 11 8 - 23 mg/dL [facility] DEPARTMENT OF PATHOLOGY AND GENOMIC MEDICINE Creatinine 0.6 0.5 - 0.9 mg/dL [facility] DEPARTMENT OF PATHOLOGY AND GENOMIC MEDICINE Glucose 76 65 - 99 mg/dL [facility] DEPARTMENT OF PATHOLOGY AND GENOMIC MEDICINE Calcium 9.3 8.8 - 10.2 mg/dL [facility] DEPARTMENT OF PATHOLOGY AND GENOMIC MEDICINE Protein 7.5 6.3 - 8.3 g/dL [facility] DEPARTMENT Comment: OF PATHOLOGY [place] AND GENOMIC 4.6-7.0 g/dL MEDICINE 1 week 4.4-7.6 g/dL 7 months-1year 5.1-7.3 g/dL 1-2 years5.6-7 .5 g/dL >3 years6.0-8 .0 g/dL 18-150 6.3-8.3 g/dL Albumin 3.1 (L) 3.5 - 5.0 g/dL [facility] DEPARTMENT OF PATHOLOGY AND GENOMIC MEDICINE A/G ratio 0.7 0.7 - 3.8 [facility] DEPARTMENT OF PATHOLOGY AND GENOMIC MEDICINE Alkaline 114 (H) 35 - 104 U/L [facility] DEPARTMENT phosphatase OF PATHOLOGY AND GENOMIC MEDICINE AST SEE COMMENTComment: 10 - 35 U/L [facility] DEPARTMENT Footnote--------- OF PATHOLOGY AND GENOMIC MEDICINE ALT SEE COMMENTComment: 5 - 50 U/L [facility] DEPARTMENT Footnote--------- OF PATHOLOGY AND GENOMIC MEDICINE Total bilirubin 0.3 0.0 - 1.2 mg/dL [facility] DEPARTMENT OF PATHOLOGY AND GENOMIC MEDICINE Specimen Plasma specimen Performing Organization Address City/State/Zipcode Phone Number [facility] DEPARTMENT [address] [address] PATHOLOGY AND GENOMIC MEDICINE after 04/10/2018 Insurance Type Payer Benefit Subscriber ID Effective Phone Address Plan / Dates Group HMO UHC MEDICARE UNITED xxxxxxxxx 2017-P HEALTHCARE resent MEDICARE Medicaid MEDICAID MEDICAID xxxxxxxxx [id number] resent Hellen Segura Reconstruc Self 1960 [id number] t[address] (Home) [place] [id number] Surgery Advance Directives Patient has advance care planning documents on file. For more information, rebeca españa contact: Simón Robb [address] [place] [address]
--- OUTSIDE RECORDS SUMMARY | 2019-04-11 15:32 | XMS REPORT ---
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 Allergies, Adverse Reactions, Alerts Allergy Name Allergy Type Status Severity Reaction(s) Onset Date Inactive Date Treating Clinician Comments NSAIDS (Non-Steroidal Anti-Inflamma DA Active [place] 2018-06-07 00:00:00 Medications This patient has no known medications.
--- OUTSIDE RECORDS SUMMARY | 2019-04-11 15:38 | XMS REPORT | Clinical Summary ---
Author Author [facility] Organization [facility] Address Unknown Phone Unavailable Care Team Providers Care Improvement Auditor Name Role Phone Asked, No Pcp PCP [...] plane imbalance (Primary Dx) 07/06/2018 Office Visit Jenanie Moreira MA 06/08/2018 Telephone Infectious Diseases Jeannie [...] Amy Mckeon RN 05/16/2018 Patient Quality Outreach [facility], Kin Kang MD 05/05/2018 Anesthesia Plastic [...] Taken Vital Sign Reading 10/08/2018 8:00 PM INSIDE SALES ASSOCIATE Blood Pressure 126/67 10/08/2018 8:00 PM INSIDE SALES ASSOCIATE Pulse 88 10/08/2018 3:55 PM INSIDE SALES ASSOCIATE Temperature 36.4 C (97.5 F) 10/08/2018 8:00 PM INSIDE SALES ASSOCIATE Respiratory Rate 16 10/08/2018 8:00 PM INSIDE SALES ASSOCIATE Oxygen Saturation 98% - Inhaled Oxygen - Concentration 05/05/2018 3:38 PM CDT Weight 68 kg (150 lb) 10/08/2018 3:55 PM INSIDE SALES ASSOCIATE Height 149.9 cm (4' 11") 05/05/2018 3:38 PM CDT Body Mass Index 30.82 Plan of Treatment Health Maintenance Due Date Last Done Comments BREAST CANCER SCREENING 02/07/2008 COLONOSCOPY SCREENING 02/07/2008 SHINGLES VACCINES (#1) 02/07/2008 INFLUENZA VACCINE 05/25/2019 Implants Device Identifier Shelf Expiration Date Model / Serial / Lot Implanted Type Area Manufactur er 08/16/2020 [id number] / / [id number] Mazor X Spine Disposable Kit Accessorie N/A: N/A Implanted: Qty: 1 on 04/01/2018 by s Jonathan Irizarry MD 01/22/2021 [id number] / / [id number] 2.5cc Healthlink Ifactor Putty, Bone Graft N/A: N/A HEALTHLINK Peptide Enhanced Bone Graft Substitute Implanted: Qty: 1 on 04/01/2018 by Jonathan Irizarry MD 08/25/2022 [id number] / [id number] / [id number] Bone Matriz Osteocel Pro Large - Human N/A: N/A NUVASIVE [id number] - [id number] Tissue Implanted: Qty: 1 on 04/01/2018 by Implants Jonathan Irizarry MD 08/10/2022 [id number] / [id number] / [id number] Bone Cancellous 30ml Chips - Human N/A: N/A RTI [id number] - [id number] Tissue SURGICAL Implanted: Qty: 1 on 04/01/2018 by Implants INC. Jonathan Irizarry MD 03/25/2019 [id number] / / [id number] Kit Bone Grft Lmbr Tprd 8ml Xxl Human N/A: N/A MEDTRONIC Infuse - [id number] Tissue SPINAL AND Implanted: Qty: 1 on 04/01/2018 by Implants Jonathan Cunningham MD 07/08/2019 [id number] / [id number] / [id number] Paste Dbm Easy-Dispensing Wdmth Syr Human N/A: N/A MEDTR[employer]IC 10ml [address] - [id number] - Tissue SPINAL [id number] Implants GRAFT Implanted: Qty: 1 on 04/01/2018 by TECHNOLOGJonathan Morales MD 08/30/2019 [id number] / [id number] / [id number] Drafton Dbm Orthoblend Small Defect Human N/A: N/A MEDTRONIC 5cc - [id number] - [id number] Tissue SPINAL AND Implanted: Qty: 1 on 04/01/2018 by Implants Jonathan Cunningham MD [id number] / / Maxcess 4 Surgical Access Kit - IPM N/A: N/A NUVASIVE [id number] IMPLANT SPINE Implanted: Qty: 1 on 04/01/2018 by Jonathan Bray MD 12/14/2022 [id number] / / [id number] Modulus Xlw, [id number] 10deg - IPM N/A: N/A NUVASIVE [id number] IMPLANT SPINE Implanted: Qty: 1 on 04/01/2018 by Jonathan Bray MD [id number] / / Maxcess 4 Surgical Access Kit - IPM N/A: N/A NUVASIVE [id number] IMPLANT SPINE Implanted: Qty: 1 on 04/01/2018 by Jonathan Bray MD 08/23/2020 [id number] / / NA Modulus Xlw, [id number] 10deg - IPM N/A: N/A NUVASIVE [id number] IMPLANT SPINE Implanted: Qty: 1 on 04/01/2018 by Jonathan Bray MD [id number] / / Reline Mas Cocr Pratik, 5.6i011pf IPM N/A: N/A NUVASIVE Straight - [id number] IMPLANT SPINE Implanted: Qty: 4 on 04/01/2018 by Jonathan Bray MD [id number] / / Nit K-Wire Precept - [id number] IPM N/A: N/A NUVASIVE Implanted: Qty: 6 on 04/01/2018 by IMPLANT SPINE Jonathan Irizarry MD DEVICES [id number] / / Reline Open Lock Screw - [id number] IPM N/A: N/A NUVASIVE Implanted: Qty: 14 on 04/01/2018 by IMPLANT SPINE Jonathan Irizarry MD DEVICES 07/04/2020 [id number] / / NA Reline Mas Ti Pratik 5.5x25mm Lordotic IPM N/A: N/A NUVASIVE - [id number] IMPLANT SPINE Implanted: Qty: 1 on 04/01/2018 by DEVICES Jonathan Irizarry MD 08/13/2020 [id number] / / NA Reline Mas Screw, 5.5x35mm 2c IPM N/A: N/A NUVASIVE Polyaxial - [id number] IMPLANT SPINE Implanted: Qty: 1 on 04/01/2018 by Jonathan Bray MD 08/13/2020 [id number] / / NA Reline Mas Screw, 5.5x40mm 2c IPM N/A: N/A NUVASIVE Polyaxial - [id number] IMPLANT SPINE Implanted: Qty: 1 on 04/01/2018 by DEVICES Jonathan Irizarry MD [id number] / / Reline Mas Screw, 6.5x45mm 2c IPM N/A: N/A NUVASIVE Polyaxial - [id number] IMPLANT SPINE Implanted: Qty: 2 on 04/01/2018 by Jonathan Bray MD 03/13/2022 [id number] / / NA Reline Mas Screw, 5.5x40mm 2c IPM N/A: N/A NUVASIVE Polyaxial - [id number] IMPLANT SPINE Implanted: Qty: 1 on 04/01/2018 by Jonathan Bray MD 03/18/2020 [id number] / / [id number] Modulus Xlw, [id number] 10deg - IPM N/A: N/A NUVASIVE [id number] IMPLANT SPINE Implanted: Qty: 1 on 04/01/2018 by Jonathan Bray MD 03/13/2020 [id number] / / NA Reline Mas Screw, 6.5x35mm 2c IPM N/A: N/A NUVASIVE Polyaxial - [id number] IMPLANT SPINE Implanted: Qty: 1 on 04/01/2018 by DEVICES Jonathan Irizarry MD [id number] / / Reline Mas Screw, 6.5x40mm 2c IPM N/A: N/A NUVASIVE Polyaxial - [id number] IMPLANT SPINE Implanted: Qty: 2 on 04/01/2018 by DEVICES Jonathan Irizarry MD [id number] / / Reline Mas Screw, 6.5x50mm 2c IPM N/A: N/A NUVASIVE Polyaxial - [id number] IMPLANT SPINE Implanted: Qty: 1 on 04/01/2018 by DEVICES Jonathan Irizarry MD [id number] / / Reline Mas Screw, 7.5x45mm 2c IPM N/A: N/A NUVASIVE Polyaxial - [id number] IMPLANT SPINE Implanted: Qty: 1 on 04/01/2018 by Jonathan Bray MD [id number] / / Reline Mas Screw, 8.5x40mm 2c IPM N/A: N/A NUVASIVE Polyaxial - [id number] IMPLANT SPINE Implanted: Qty: 1 on 04/01/2018 by DEVICES Jonathan Irizarry MD [id number] / / Reline Mas Screw, 7.5x40mm 2c IPM N/A: N/A NUVASIVE Polyaxial - [id number] IMPLANT SPINE Implanted: Qty: 1 on 04/01/2018 by Jonathan Bray MD 03/23/2020 [id number] / / NA Reline Mas Screw, 8.5x70mm 2c Poly IPM N/A: N/A NUVASIVE Iliac - [id number] IMPLANT SPINE Implanted: Qty: 2 on 04/01/2018 by Jonathan Bray MD 08/24/2022 [id number] / / [id number] Material Bone Hmsts Wtrsolbl 2.5g Orthopedic N/A: N/A Ostene - [id number] Trauma Implanted: Qty: 1 on 04/01/2018 by Jonathan Ott MD [id number] / / Kit Dil M5 Xlif - [id number] Spinal N/A: N/A NUVASIVE Implanted: Qty: 1 on 04/01/2018 by Implants Jonathan Irizarry MD [id number] / / Kit Dil M5 Xlif - [id number] Spinal N/A: N/A NUVASIVE Implanted: Qty: 1 on 04/01/2018 by Implants Jonathan Irizarry MD 01/22/2019 [id number] / / [id number] Cement Bone Full-Dose Premxd W/ Surgical N/A: Back, GAEL Tobr Simplex P Pack 10/Ea - Bone Other than ORTHOPEDIC [id number] Cement Spine S Implanted: Qty: 1 on 04/26/2018 by HIPS-KNEES Felisa Kwon MD 02/22/2022 [id number] / / [id number] 500mg, Amniofill Human Placental N/A: N/A MIMEDX [...] pelvis without penetration into retroperitoneum, initial encounter CO AN ELECTIVE Routine 05/05/2018 ENDOTRACHEAL AIRWAY 4:40 PM CDT Procedure Note - Gumaro Horn RISK ASSESSOR - 05/05/2018 4:40 PM CDT Airway Date/Time: [...] AEROBIC CULTURE Routine 04/26/2018 11:11 AM CDT CO AN ELECTIVE Routine 04/26/2018 ENDOTRACHEAL AIRWAY 10:16 AM CDT Procedure Note - Ellen Owens RISK ASSESSOR - 04/26/2018 10:16 AM CDT Airway Date/Time: [...] able to establish BMV. DL X1 by RISK ASSESSOR with grade 1 view. ETT passed through [...] which is slightly improved from prior exam. [facility]-[id number] Procedure Note Hm Interface, Radiology Results Incoming [...] which is slightly improved from prior exam. [facility]-[id number] Performing Organization Address City/State/Zipcode Phone Number [facility]AVINDR[facility] [address] [place] [address] * Prothrombin time with INR (05/16/2018 7:56 AM CDT) Only the most recent of 10 results within the time period is included. Prothrombin 25.0 (H) 12.0 - 15.0 sec [facility] DE[facility] time OF PATHOLOGY AND GENOMIC MEDICINE INR 2.2 [facility] Comment: OF PATHOLOGY The International Normalized AND GENOMIC Ratio (INR) is a therapeutic MEDICINE monitoring tool for patients who are stable on oral anticoagulant therapy. An INR of 2.0-3.0 is suggested for deep vein thrombosis/pulmonary embolism. Specimen Blood Performing Organization Address City/[facility] Phone Number [facility] [address] [place] [phone] PATHOLOGY AND GENOMIC MEDICINE * Hepatic function panel (05/14/2018 5:15 AM CDT) Pathologist [facility] Albumin 2.8 (L) 3.5 - 5.0 g/dL [facility] DEPART[facility] OF PATHOLOGY AND GENOMIC MEDICINE Total bilirubin <0.2 0.0 - 1.2 mg/dL [facility] DE[facility] OF PATHOLOGY AND GENOMIC MEDICINE Bilirubin <0.2 0.0 - 0.3 mg/dL [facility] direct OF PATHOLOGY AND GENOMIC MEDICINE Alkaline 104 35 - 104 U/L [facility] DE[facility] phosphatase OF PATHOLOGY AND GENOMIC MEDICINE Protein 6.4 6.3 - 8.3 g/dL [facility] DE[facility] Comment: OF PATHOLOGY Jaroso AND GENOMIC 4.6-7.0 g/dL MEDICINE 1 week 4.4-7.6 g/dL 7 months-1year 5.1-7.3 g/dL 1-2 years5.6-7 .5 g/dL >3 years6.0-8 .0 g/dL 18-150 6.3-8.3 g/dL ALT 13 5 - 50 U/L [facility] DEPART[facility] OF PATHOLOGY AND GENOMIC MEDICINE AST 17 10 - 35 U/L [facility] DEPART[facility] OF PATHOLOGY AND GENOMIC MEDICINE Specimen Plasma specimen Performing Organization Address City/[facility] Centercode Phone Number [facility] [address] [address] PATHOLOGY AND GENOMIC MEDICINE * Estimated GFR (05/13/2018 3:45 AM CDT) Only the most recent of 6 results within the time period is included. GFR Non Af Amer 85 mL/min/1.73 m2 [facility] DE[facility] OF PATHOLOGY AND GENOMIC MEDICINE GFR Af Amer >90 mL/min/1.73 m2 [facility] DE[facility] Comment: OF PATHOLOGY Chronic kidney disease: [...] Americans. Specimen Plasma specimen Performing Organization Address City/[facility] Centercode Phone Number [facility] [place] [address] PATHOLOGY AND [facility] MEDICINE * Thyroid stimulating hormone (05/13/2018 3:45 AM CDT) TSH 2.87 0.27 - 4.20 uIU/mL [facility] DE[facility] OF PATHOLOGY [facility] MEDICINE Specimen Plasma specimen Performing Organization Address [facility] [place] [address] PATHOLOGY AND [facility] * Phosphorus level (05/13/2018 3:45 AM CDT) Phosphorus 3.5 2.4 - 4.5 mg/dL [facility] DEPARTMENT OF PATHOLOGY AND GENOMIC MEDICINE Specimen Plasma specimen Performing Organization Address [facility] Centercopr Phone Number [facility] [place] [address] PATHOLOGY AND [facility] * Magnesium level (05/13/2018 3:45 AM CDT) Magnesium 1.8 1.6 - 2.4 mg/dL [facility] DEPARTMENT OF PATHOLOGY AND GENOMIC MEDICINE Specimen Plasma specimen Performing Organization Address [facility] [place] [address] PATHOLOGY AND [facility] MEDICINE * Ferritin level (05/13/2018 3:45 AM CDT) Ferritin level 95 13 - 150 ng/mL [facility] DEPARTMENT OF PATHOLOGY AND GENOMIC MEDICINE Specimen Plasma specimen Performing Organization Address [facility] Centercode Phone Number [facility] [place] [address] PATHOLOGY AND [facility] MEDICINE * Vitamin B12 level (05/13/2018 3:45 AM CDT) Vitamin B12 358 211 - 946 pg/mL [facility] DE[facility] Comment: OF PATHOLOGY Significant overlap exists AND GENOMIC between normal and deficiency MEDICINE states. However, most patients with deficiencies will have Serum B12 <200 pg/mL. Specimen Serum Performing Organization Address City/State/Zipcode Phone Number [facility] DEPARTMENT OF [address] [place] [address] PATHOLOGY AND GENOMIC MEDICINE * Lipid panel (05/13/2018 3:45 AM CDT) Cholesterol 167 <200 mg/dL [facility] DEPARTMENT OF PATHOLOGY AND GENOMIC MEDICINE Triglycerides 253 (H) <150 mg/dL [facility] DEPARTMENT OF PATHOLOGY AND GENOMIC MEDICINE HDL cholesterol 28 (L) >40 mg/dL [facility] DEPARTMENT OF PATHOLOGY AND GENOMIC MEDICINE LDL cholesterol 90Comment: Result obtained by <100 mg/dL [facility] DE[facility] direct LDL measurement OF PATHOLOGY AND GENOMIC MEDICINE Lipid panel SeeBelow [facility] DE[facility] interpretation Comment: OF PATHOLOGY Total Cholesterol [...] specimen Performing Organization Address City/State/Zipcode Phone Number [facility] DEPARTMENT OF [address] [place] [address] PATHOLOGY AND GENOMIC MEDICINE * CBC hemogram (05/12/2018 4:02 AM CDT) Only the most recent of 3 results within the time period is included. WBC 3.69 (L) 4.50 - 11.00 k/uL [facility] DEPARTMENT OF PATHOLOGY AND GENOMIC MEDICINE RBC 2.90 (L) 4.20 - 5.50 m/uL [facility] DEPARTMENT OF PATHOLOGY AND GENOMIC MEDICINE HGB 8.8 (L) 12.0 - 16.0 g/dL [facility] DEPARTMENT OF PATHOLOGY AND GENOMIC MEDICINE HCT 28.0 (L) 37.0 - 47.0 % [facility] DEPARTMENT OF PATHOLOGY AND GENOMIC MEDICINE MCV 96.6 82.0 - 100.0 fL [facility] DEPARTMENT OF PATHOLOGY AND GENOMIC MEDICINE MCH 30.3 27.0 - 34.0 pg [facility] DEPARTMENT OF PATHOLOGY AND GENOMIC MEDICINE MCHC 31.4 31.0 - 37.0 g/dL [facility] DEPARTMENT OF PATHOLOGY AND GENOMIC MEDICINE RDW - SD 60.1 (H) 37.0 - 55.0 fL [facility] DEPARTMENT OF PATHOLOGY AND GENOMIC MEDICINE MPV 9.8 8.8 - 13.2 fL [facility] DEPARTMENT OF PATHOLOGY AND GENOMIC MEDICINE Platelet count 222 150 - 400 k/uL [facility] DEPARTMENT OF PATHOLOGY AND GENOMIC MEDICINE Nucleated RBC 0.00 /100 WBC [facility] DEPARTMENT OF PATHOLOGY AND GENOMIC MEDICINE Specimen Blood Performing Organization Address City/[facility]/Zipcode Phone Number [facility] DEPARTMENT OF [address] [place] [address] PATHOLOGY AND GENOMIC MEDICINE * Sedimentation rate (05/11/2018 11:12 AM CDT) Only the most recent of 5 results within the time period is included. Sedimentation 87 (H) 0 - 20 mm/hr [facility] DE[facility] rate OF PATHOLOGY AND GENOMIC MEDICINE Specimen Blood Performing Organization Address City/[facility]ercopr Phone Number [facility] DEPARTMENT OF [address] [place] [address] PATHOLOGY AND GENOMIC MEDICINE * Pv duplex venous upper extremity (05/08/2018 9:02 AM CDT) Specimen Narrative Performed At [facility] Vascular Ultrasound Laboratory Upper Extremity Venous Report [address] [place] [address] Pat.Name:HELLEN SEGURA Pat.ID:[id number] .Date: 05/08/2018 Refer.MD:JONATHAN IRIZARRY MD Exam Time: 8:46:00 AMStudy Type:UE Venous Height:58inWeight:150lb BSA: 1.61 m2 DOBAge:1960,58Y Sex: FEMALESonogrphr: Abhijit Ledesma, ERICK, PAULINO Pat. Stat.:Inpatient Room:[address] TapeVol: SB, CPT - 4: 71402 Echo Event ID:[id number] Order ID:[id number] Reason for Study:Possible thrombus found with PICC [...] Ultrasound Laboratory Upper Extremity Venous Report [address] [place] [address] Pat.Name: HELLEN SEGURA Pat.ID: [id number] St.Date: 05/08/2018 Refer.MD: JONATHAN IRIZARRY MD Exam Time: 8:46:00 AM Study Type:UE Venous Height: 58in Weight: 150lb BSA: 1.61 m2 Age: 2 1960,58Y Sex: FEMALE Sonogrphr: ERICK Farrar, PAULINO Pat. Stat.:Inpatient Room: [address] Tape Vol: SB, CPT - 4: 82646 Echo Event ID:[id number] Order ID: [id number] Reason for Study:Possible thrombus found with PICC [...] Gary Mendes MD, RPVI Performing Organization Address [facility] Centercode Phone Number [facility] [address] [place] [address] * Vancomycin level, trough (05/07/2018 4:20 PM CDT) Only the most recent of 2 results within the time period is included. Vancomycin, 19.5 10.0 - 20.0 ug/mL [facility] DE[facility] trough Comment: OF PATHOLOGY Therapeutic Ranges: AND GENOMIC Peak 30.0 - MEDICINE 40.0 ug/mL Ckrzos82.0 - 20.0 ug/mL Specimen Serum Performing Organization Address [facility]ercopr Phone Number [facility] DEPARTMENT OF [address] [place] [address] PATHOLOGY AND GENOMIC MEDICINE * XR Picc [...] IMPRESSION: Interval satisfactory insertion of PICC line. [id number] Procedure Note Interface, Radiology Results Incoming - [...] IMPRESSION: Interval satisfactory insertion of PICC line. [id number] Performing Organization Address City/State/Zipcode Phone Number [facility] [address] [place] [address] * PICC INSERTION (05/06/2018 6:19 PM CDT) Narrative Performed At [facility] Escobar RN 05/06/20186:28 PM PICC insertion Date/Time: 05/06/2018 6:19 PM Performed by: MAYA FELICIANO Authorized by: JONATHAN IRIZARRY Consent: Consent obtained:Verbal Consent given by:Patient Risks discussed: arterial puncture, incorrect placement, nerve damage, infection, bleeding, superficial thrombus and deep vein thrombus Alternatives discussed:No treatment, delayed treatment and alternative treatment [place] protocol: Procedure explained and questions answered to [...] LDA): Patient position:Flat Vessel Size (mm):5 Indication:Known assisted IV therapy Location:Left basilic Site selection rationale:Right basilic vein non-compressible Device Type:Non-valved Catheter size:5 Fr PICC Characteristics: Catheter Brand:BioFlo PICC External Catheter Length (cm):0 Internal Catheter Length (cm):34 Total Catheter Length (cm):34 Catheter Lot Number:[id number] Catheter Expiration Date:12/23/1919 Procedure Details: Landmarks identified: [...] is included. Fungus smear No fungi observed. [facility] Comment: OF PATHOLOGY Specimen Information AND GENOMIC Specimen Source: Tissue MEDICINE Specimen Site: Back, lower Specimen Tissue - Back, [facility] Organization Address [facility] Phone Number [facility] DEPARTMENT OF [address] [place] [address] PATHOLOGY AND GENOMIC MEDICINE * AFB culture (05/05/2018 5:05 PM CDT) Only the most recent of 5 results within the time period is included. AFB culture No growth after 6 weeks of [facility] DE[facility] isolate incubation. OF PATHOLOGY Comment: AND GENOMIC Specimen Information MEDICINE Specimen Source: Tissue Specimen Site: Back, lower Specimen Tissue - Back, [facility] Performing Organization Address City/[facility] Phone Number [facility] DEPARTMENT OF [address] [place] [address] PATHOLOGY AND GENOMIC MEDICINE * Aerobic culture (05/05/2018 5:05 PM CDT) Only the most recent of 6 results within the time period is included. Aerobic culture No growth after 3 days. [facility] DE[facility] isolate Comment: OF PATHOLOGY Specimen Information AND GENOMIC Specimen Source: Tissue MEDICINE Specimen Site: Back, lower Specimen Tissue - Back, lower Performing Organization Address [facility] Phone Number [facility] DEPARTMENT OF [address] [place] [address] PATHOLOGY AND GENOMIC MEDICINE * Gram stain (05/05/2018 5:05 PM CDT) Only the most recent of 6 results within the time period is included. Gram stain Rare WBC's [facility] DE[facility] isolate No organisms seen OF PATHOLOGY Comment: AND GENOMIC Specimen Information MEDICINE Specimen Source: Tissue Specimen Site: Back, lower Specimen Tissue - Back, lower Performing Organization Address [facility] Phone Number [facility] DEPARTMENT OF [address] [place] [address] PATHOLOGY AND GENOMIC MEDICINE * AFB stain (05/05/2018 5:05 PM CDT) Only the most recent of 5 results within the time period is included. AFB stain No acid fast bacilli (AFB) [facility] DE[facility] seen. OF PATHOLOGY Comment: AND GENOMIC Specimen Information MEDICINE Specimen Source: Tissue Specimen Site: Back, lower Specimen Tissue - Back, lower Performing Organization Address [facility] Phone Number [facility] DEPARTMENT OF [address] [place] [address] PATHOLOGY AND GENOMIC MEDICINE * Fungus culture (05/05/2018 5:05 PM CDT) Only the most recent of 5 results within the time period is included. Fungus culture No growth after 4 weeks of [facility] DE[facility] isolate incubation. OF PATHOLOGY Comment: AND GENOMIC Specimen Information MEDICINE Specimen Source: Tissue Specimen Site: Back, lower Specimen Tissue - Back, lower Performing Organization Address [facility] Phone Number [facility] DEPARTMENT OF [address] [place] [address] PATHOLOGY AND GENOMIC MEDICINE * Anaerobic culture (05/05/2018 5:05 PM CDT) Only the most recent of 6 results within the time period is included. Anaerobic No anaerobic organisms [facility] DE[facility] culture isolate isolated. OF PATHOLOGY Comment: AND GENOMIC Specimen Information MEDICINE Specimen Source: Tissue Specimen Site: Back, lower Specimen Tissue - Back, lower Performing Organization Address [facility] Centercode Phone Number [facility] DEPARTMENT OF [address] [place] [address] PATHOLOGY AND GENOMIC MEDICINE * Type and screen (05/04/2018 3:15 AM CDT) Only the most recent of 2 results within the time period is included. ABO grouping A [facility] DEPARTMENT OF PATHOLOGY AND GENOMIC MEDICINE Rh type POS [facility] DEPARTMENT OF PATHOLOGY AND GENOMIC MEDICINE Antibody screen NEG [facility] DEPART[facility] (gel) OF PATHOLOGY AND GENOMIC MEDICINE Specimen Blood Performing Organization Address City/State/Zipcode Phone Number [facility] DEPARTMENT OF [address] [place] [address] PATHOLOGY AND GENOMIC MEDICINE * PICC INSERTION (04/22/2018 6:54 PM CDT) Narrative Performed At Fito Rico RN 04/22/20186:58 PM PICC insertion Date/Time: 04/22/2018 6:55 PM Performed by: FITO RICO Authorized by: JONATHAN IRIZARRY Consent: Consent obtained:Verbal Consent given by:Patient Risks discussed: arterial puncture, incorrect placement, nerve damage, infection, bleeding, superficial thrombus and deep vein thrombus Alternatives discussed:Delayed treatment and alternative treatment [place] protocol: Procedure explained and questions answered to [...] LDA): Patient position:Flat Vessel Size (mm):4 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 Specimen site Random void [facility] DEPARTMENT OF PATHOLOGY AND GENOMIC MEDICINE Color, UA Yellow [facility] DEPARTMENT OF PATHOLOGY AND GENOMIC MEDICINE Appearance, UA Clear [facility] DEPARTMENT OF PATHOLOGY AND GENOMIC MEDICINE Specific 1.021 1.001 - 1.035 [facility] DEPARTMENT gravity, OF PATHOLOGY AND GENOMIC MEDICINE pH, UA 5.0 5.0 - 8.5 [facility] DEPARTMENT OF PATHOLOGY AND GENOMIC MEDICINE Protein, UA Negative Negative [facility] DEPARTMENT OF PATHOLOGY AND GENOMIC MEDICINE Glucose, UA Negative Negative [facility] DEPARTMENT OF PATHOLOGY AND GENOMIC MEDICINE Ketones, UA Negative Negative [facility] DEPARTMENT OF PATHOLOGY AND GENOMIC MEDICINE Bilirubin, UA Negative Negative [facility] DEPARTMENT OF PATHOLOGY AND GENOMIC MEDICINE Blood, UA Negative Negative [facility] DEPARTMENT OF PATHOLOGY AND GENOMIC MEDICINE Nitrite, UA Negative Negative [facility] DEPARTMENT OF PATHOLOGY AND GENOMIC MEDICINE Urobilinogen, 2.0 (A) <2.0 [facility] UA OF PATHOLOGY AND GENOMIC MEDICINE Leukocyte Negative Negative [facility] DEPARTMENT esterase, UA OF PATHOLOGY AND GENOMIC MEDICINE Epithelial >20 /HPF [facility] DEPARTMENT cells, UA OF PATHOLOGY AND GENOMIC MEDICINE WBC, UA 1 0 - 4 /HPF [facility] DEPARTMENT OF PATHOLOGY AND GENOMIC MEDICINE RBC, UA 1 0 - 5 /HPF [facility] DEPARTMENT OF PATHOLOGY AND GENOMIC MEDICINE Bacteria, UA Few None seen [facility] DEPARTMENT OF PATHOLOGY AND GENOMIC MEDICINE Yeast, UA None seen [facility] DEPARTMENT OF PATHOLOGY AND GENOMIC MEDICINE Yeast with None seen [facility] DEPARTMENT pseudohyphae, OF PATHOLOGY UA AND GENOMIC MEDICINE Specimen Urine Performing Organization Address City/State/Zipcode Phone Number [facility] DEPARTMENT OF [address] [place] [address] PATHOLOGY AND GENOMIC MEDICINE * Urine culture (04/21/2018 3:36 PM CDT) Only the most recent of 2 results within the time period is included. Urine culture SEE COMMENTComment: [facility] DEPARTMENT Bacteriuria screen negative. OF PATHOLOGY AND GENOMIC MEDICINE Specimen Performing Organization Address City/State/Zipcode Phone Number [facility] DEPARTMENT OF [address] [place] [address] PATHOLOGY AND GENOMIC MEDICINE * Us duplex venous lower extremity (04/21/2018 8:48 AM CDT) Specimen Narrative Performed At [facility] Vascular Ultrasound Laboratory Lower Extremity Venous Report [address] [facility] [address], [place] [address] Pat.Name:HELLEN SEGUAR Pat.ID:[id number] .Date: 04/21/2018 Refer.MD:JONATHAN IRIZARRY MD Exam Time: 8:20:00 AMStudy Type:LE Venous Height:54.43cm Weight:64kg BSA: 0.76 m2 DOBAge:1960,58Y Sex: FEMALESonogrphr: Jes Cohen RVT Pat. Stat.:Inpatient Room:[address] TapeVol: , CPT - 4: 29792 Echo Event ID:[id number] Order ID:[id number] Reason for Study:Bilateral leg edema.Rule out DVT. [...] Vascular Ultrasound Laboratory Lower Extremity Venous Report [address] [place] [address] Pat.Name: HELLEN SEGURA Pat.ID: [id number] St.Date: 04/21/2018 Refer.MD: JONATHAN IRIZARRY MD Exam Time: 8:20:00 AM Study Type:LE Venous Height: 54.43cm Weight: 64kg BSA: 0.76 m2 Age: 2 1960,58Y Sex: FEMALE Sonogrphr: Jes Cohen RVT Pat. Stat.:Inpatient Room: [address] Tape Vol: YM, CPT - 4: 32854 Echo Event ID:[id number] Order ID: [id number] Reason for Study:Bilateral leg edema. Rule out [...] AM Ryland Shepard MD Performing Organization Address City/[facility]/Zipcode Phone Number [facility] [address] [place] [address] * ALT (SGPT) (04/20/2018 6:23 PM CDT) Pathologist [facility] ALT 8 5 - 50 U/L [facility] DEPARTMENT OF PATHOLOGY AND GENOMIC MEDICINE Specimen Plasma specimen Performing Organization Address [facility] Phone Number [facility] [place] [address] PATHOLOGY AND [facility] MEDICINE * AST (SGOT) (04/20/2018 6:23 PM CDT) Pathologist [facility] AST 17 10 - 35 U/L [facility] DEPARTMENT OF PATHOLOGY AND GENOMIC MEDICINE Specimen Plasma specimen Performing Organization Address [facility] Phone Number [facility] [place] [address] PATHOLOGY AND [facility] MEDICINE * Potassium level (04/20/2018 6:23 PM CDT) [facility] Potassium 3.9 3.5 - 5.0 mEq/L [facility] DEPARTMENT OF PATHOLOGY AND GENOMIC MEDICINE Specimen Plasma specimen Performing Organization [facility] Number [facility] [place] [place] [address] PATHOLOGY AND [facility] MEDICINE * Partial thromboplastin time, activated (04/20/2018 5:21 PM CDT) [facility] PTT 31.5 23.0 - 36.0 sec [facility] DEPARTMENT Comment: OF PATHOLOGY PTT therapeutic range for AND GENOMIC unfractionated heparin is MEDICINE 61.0-112.0 seconds which corresponds to Anti-Xa 0.3-0.7 U/ml. Specimen Blood Performing Organization Address [facility] [place] [address] PATHOLOGY AND [facility] MEDICINE * Prealbumin level (04/20/2018 5:21 PM CDT) [facility] Prealbumin 20 16 - 32 mg/dL [facility] DEPARTMENT OF PATHOLOGY AND GENOMIC MEDICINE Specimen Serum Performing Organization [facility] Phone Number [address] [place] [address] PATHOLOGY AND GENOMIC MEDICINE * ECG 12 lead (04/20/2018 5:13 PM CDT) Ventricular 72 [facility] rate Atrial rate 72 [facility] CO interval 106 [facility] QRSD interval 66 [facility] QT interval 406 [facility] QTC interval 444 [facility] MUSE P axis 1 58 [facility] MUSE QRS axis 1 57 [facility] MUSE T wave axis -22 [facility] MUSE EKG impression Sinus rhythm with short [facility] MUSE CO-Nonspecific ST and T wave abnormality-Abnormal ECG-In automated comparison with ECG of 23-MAR-2018 13:35,-T wave inversion now evident in Inferior leads-T wave inversion now evident in Anterior leads- Specimen Performing Organization Address [facility] Phone Number [address] [address] * Blood culture, aerobic & anaerobic (04/20/2018 4:55 PM CDT) Blood culture Staphylococcus epidermidis [facility] DEPARTMENT isolate Anaerobic only: OF PATHOLOGY (A) [...] mcg/mL: Resistant Staphylococcus epidermidis Performing Organization Address [facility] Phone Number [facility] DEPARTMENT OF [address] [place] [address] PATHOLOGY AND GENOMIC MEDICINE * ECG ED Preliminary Interpretation - NOT AN ORDER (04/20/2018 4:32 PM CDT) Narrative Performed At Ghazala Rodriguez MD 04/23/20187:05 AM ECG ED Preliminary Interpretation - Not an Order Performed by: GHAZALA RODRIGUEZ Authorized by: GHAZALA RODRIGUEZ ECG reviewed by ED Physician in the absence of a shell shop supervisor: yes Interpretation: Interpretation: abnormal Rate: ECG rate:72 ECG rate assessment: normal Rhythm: Rhythm: sinus rhythm QRS: QRS axis:Normal QRS intervals:Normal Comments: Sinus rhythm with short CO. Intervals otherwise normal. EKG: This EKG was reviewed and interpreted by me contemporaneously.This was a good tracing.There is a normal sinus rhythm.There is a normal rate.There are narrow complexes.There is a normal axis.There is no ST elevation o r depression. * Comprehensive metabolic panel (04/20/2018 4:05 PM CDT) Sodium 140 135 - 148 mEq/L [facility] DEPARTMENT OF PATHOLOGY AND [employer] MEDICINE Potassium SEE COMMENT 3.5 - 5.0 mEq/L [facility] DEPARTMENT Comment: OF PATHOLOGY Footnote--------- AND GENOMIC Unable to perform testing, MEDICINE specimen is HEMOLYZED.Recollect requested for K,AST,ALT (tests). Chloride 99 98 - 112 mEq/L [facility] DEPARTMENT OF PATHOLOGY AND GENOMIC MEDICINE CO2 28 24 - 31 mEq/L [facility] DEPARTMENT OF PATHOLOGY AND GENOMIC MEDICINE Anion gap 13@ANIO 7 - 15 mEq/L [facility] DEPARTMENT OF PATHOLOGY AND GENOMIC MEDICINE BUN 11 8 - 23 mg/dL [facility] DEPARTMENT OF PATHOLOGY AND GENOMIC MEDICINE Creatinine 0.6 0.5 - 0.9 mg/dL [facility] DEPARTMENT OF PATHOLOGY AND GENOMIC MEDICINE Glucose 76 65 - 99 mg/dL [facility] DEPARTMENT OF PATHOLOGY AND GENOMIC MEDICINE Calcium 9.3 8.8 - 10.2 mg/dL [facility] DEPARTMENT OF PATHOLOGY AND GENOMIC MEDICINE Protein 7.5 6.3 - 8.3 g/dL [facility] DEPARTMENT Comment: OF PATHOLOGY [place] AND GENOMIC 4.6-7.0 g/dL MEDICINE 1 week 4.4-7.6 g/dL 7 months-1year 5.1-7.3 g/dL 1-2 years5.6-7 .5 g/dL >3 years6.0-8 .0 g/dL 18-150 6.3-8.3 g/dL Albumin 3.1 (L) 3.5 - 5.0 g/dL [facility] DEPARTMENT OF PATHOLOGY AND GENOMIC MEDICINE A/G ratio 0.7 0.7 - 3.8 [facility] DEPARTMENT OF PATHOLOGY AND GENOMIC MEDICINE Alkaline 114 (H) 35 - 104 U/L [facility] DEPARTMENT phosphatase OF PATHOLOGY AND GENOMIC MEDICINE AST SEE COMMENTComment: 10 - 35 U/L [facility] DEPARTMENT Footnote--------- OF PATHOLOGY AND GENOMIC MEDICINE ALT SEE COMMENTComment: 5 - 50 U/L [facility] DEPARTMENT Footnote--------- OF PATHOLOGY AND GENOMIC MEDICINE Total bilirubin 0.3 0.0 - 1.2 mg/dL [facility] DEPARTMENT OF PATHOLOGY AND GENOMIC MEDICINE Specimen Plasma specimen Performing Organization Address City/State/Zipcode Phone Number [facility] DEPARTMENT [address] [address] PATHOLOGY AND GENOMIC MEDICINE after 04/10/2018 Insurance Type Payer Benefit Subscriber ID Effective Phone Address Plan / Dates Group HMO UHC MEDICARE UNITED xxxxxxxxx 2017-P HEALTHCARE resent MEDICARE Medicaid MEDICAID MEDICAID xxxxxxxxx 2013-P resent Hellen Segura Reconstruc Self 1960 [address] t[address] (Home) [place] [id number] Surgery Advance Directives Patient has advance care planning documents on file. For more information, rebeca españa contact: Simón Robb [address] [place] [address]
[2019-04-11 16:16] VITALS: BP 132/81
== END 2019-04-11 16:57 | disposition left against medical advice (07) ==
LOC: ER 15:35
DX: M25.562 Pain in left knee (principal); M25.462 Effusion, left knee; R26.2 Difficulty in walking, not elsewhere classified; F41.9 Anxiety disorder, unspecified; F32.9 Major depressive disorder, single episode, unspecified

== ENCOUNTER 2019-05-24 18:34 | Emergency (ER) | payer MEDICARE ==
[~2019-05-24] VITALS: Ht 149.9 cm; Wt 73.9 kg
--- OUTSIDE RECORDS SUMMARY | 2019-05-24 18:38 | XMS REPORT | Clinical Summary ---
Author Author Simón [facility] Organization [facility] Address Unknown Phone Unavailable Care Team Providers Care Sales Property Manager Name Role Phone Asked, No Pcp PCP Unavailable Allergies Comments Active Allergy Reactions Severity Noted Date Bacitracin 10/27/2017 Codeine Itching 05/01/2016 Nsaids (Non-Steroidal GI 05/01/2016 Anti-Inflammatory Drug) Intolerance Medications End Date Status Medication Sig Dispensed Refills Start Date Active ondansetron (ZOFRAN) 8 MG Take 1 tablet 20 tablet 0 tablet (8 mg total) 8 by mouth every 6 (six) hours as needed for nausea. Active mesalamine (ASACOL) 800 Take 3 0 mg EC tablet tablets 8 (2,400 mg total) by mouth daily. Active benzocaine-menthol Apply 1 0 (CEPACOL MAX) 15-3.6 mg lozenge to 8 lozenge cheek every 2 (two) hours as needed (sore throat). Active pantoprazole (PROTONIX) Take 1 tablet 0 40 MG EC tablet (40 mg total) 8 by mouth daily. Active lactulose 20 gram/30 mL Take 30 mL 0 solution (20 g total) 8 by mouth 2 (two) times a day. Hold if diarrhea Or BM today Active clonAZEPAM (KlonoPIN) 1 Take 1 mg by 0 MG tablet mouth 4 (four) times a day. 04/15/2019 sucralfate (CARAFATE) 1 Take 1 tablet 120 tablet 11 gram tablet (1 g total) 8 by mouth 4 (four) times a day. 04/15/2019 dicyclomine (BENTYL) 20 Take 1 tablet 120 tablet 11 mg tablet (20 mg total) 8 by mouth 4 (four) times a day. 04/15/2019 gabapentin (NEURONTIN) Take 1 90 capsule 11 300 mg capsule capsule (300 8 mg total) by mouth 3 (three) times a day. 04/16/2019 atorvastatin (LIPITOR) 40 Take 1 tablet 30 tablet 11 MG tablet (40 mg total) 8 by mouth daily. 04/15/2019 fenofibrate (LOFIBRA) 54 Take 1 tablet 30 tablet 11 MG tablet (54 mg total) 8 by mouth nightly. 04/15/2019 ipratropium (ATROVENT) Take 2.5 mL 75 mL 12 0.02 % nebulizer solution (0.5 mg 8 total) by nebulization every 6 (six) hours while awake. 04/16/2019 buPROPion XL (WELLBUTRIN Take 1 tablet 30 tablet 11 XL) 300 MG 24 hr tablet (300 mg 8 total) by mouth daily. 04/16/2019 levothyroxine (SYNTHROID, Take 1 tablet 30 tablet LEVOXYL) 75 mcg tablet (75 mcg 8 total) by mouth daily. 06/05/2018 morPHINE (MS CONTIN) 15 Take 1 [...] plane imbalance (Primary Dx) 07/06/2018 Office Visit Neurosurgery Jeannie Beatty MA 06/08/2018 Telephone Infectious Diseases Jeannie Beatty MA 06/08/2018 Abstract Infectious Diseases N/A 06/07/2018 Intake Access Radha Zurita MA 06/07/2018 Telephone Neurosurgery Jeannie Beatty MA 06/07/2018 Telephone Infectious Diseases Jonathan Irizarry MD Sagittal plane imbalance (Primary Dx); DDD (degenerative disc disease), lumbar 06/01/2018 Office Visit Neurosurgery Jonathan Irizarry MD Scoliosis of thoracolumbar spine, unspecified scoliosis type 06/01/2018 Hospital Radiology Encounter Radha Zurita MA Scoliosis of thoracolumbar spine, unspecified scoliosis type (Primary Dx) 06/01/2018 Transcribe Neurosurgery Orders Jeannie Beatty MA 05/30/2018 Abstract Infectious Diseases after 05/23/2018 Family History Medical History Relation Name Comments [...] Taken Vital Sign Reading 10/08/2018 8:00 PM COIN COLLECTOR Blood Pressure 126/67 10/08/2018 8:00 PM COIN COLLECTOR Pulse 88 10/08/2018 3:55 PM COIN COLLECTOR Temperature 36.4 C (97.5 F) 10/08/2018 8:00 PM COIN COLLECTOR Respiratory Rate 16 10/08/2018 8:00 PM COIN COLLECTOR Oxygen Saturation 98% - Inhaled Oxygen - Concentration - Weight - 10/08/2018 3:55 PM COIN COLLECTOR Height 149.9 cm (4' 11") - Body Mass Index - Plan of Treatment Health Maintenance Due Date Last Done Comments BREAST CANCER SCREENING 02/07/2008 COLONOSCOPY SCREENING 02/07/2008 SHINGLES VACCINES (#1) 02/07/2008 INFLUENZA VACCINE 05/25/2019 Implants Device Identifier Shelf Expiration Date Model / Serial / Lot Implanted Type Area Manufactur er 08/16/2020 [id number] / / [id number] Mazor X Spine Disposable Kit Accessorie N/A: N/A Implanted: Qty: 1 on 04/01/2018 by s Jonathan Irizarry MD 01/22/2021 [id number] / / [id number] 2.5cc Healthlink Ifactor Putty, Bone Graft N/A: N/A HEALTHLINK Peptide Enhanced Bone Graft Substitute Implanted: Qty: 1 on 04/01/2018 by Jonathan Irizarry MD 08/25/2022 [id number] / [id number] / [id number] Bone Matriz Osteocel Pro Large - Human N/A: N/A NUVASIVE [id number] - [id number] Tissue Implanted: Qty: 1 on 04/01/2018 by Implants Jonathan Irizarry MD 08/10/2022 [id number] / [id number] / [id number] Bone Cancellous 30ml Chips - Human N/A: N/A RTI [id number] - [id number] Tissue SURGICAL Implanted: Qty: 1 on 04/01/2018 by Implants INC. Jonathan Irizarry MD 03/25/2019 [id number] / / [id number] Kit Bone [facility] Lmbr Tprd 8ml Xxl Human N/A: N/A MEDTRONIC Infuse - [id number] Tissue SPINAL AND Implanted: Qty: 1 on 04/01/2018 by Implants Jonathan Cunningham MD 07/08/2019 [id number] / [id number] / [id number] Paste Dbm Easy-Dispensing Wdmth Syr Human N/A: N/A MEDTRONIC 10ml [address] - [id number] - Tissue SPINAL [id number] Implants GRAFT Implanted: Qty: 1 on 04/01/2018 by TECHNOLOGJonathan Morales MD ES 08/30/2019 [id number] / [id number] / [id number] Drafton Dbm Orthoblend Small Defect Human N/A: N/A MEDTRONIC 5cc - [id number] - [id number] Tissue SPINAL AND Implanted: Qty: 1 on 04/01/2018 by Implants Jonathan Cunningham MD [id number] / / Maxcess 4 Surgical Access Kit - IPM N/A: N/A NUVASIVE [id number] IMPLANT SPINE Implanted: Qty: 1 on 04/01/2018 by DEVICES Jonathan Irizarry MD 12/14/2022 [id number] / / [id number] Modulus Xlw, [id number] 10deg - IPM N/A: N/A NUVASIVE [id number] IMPLANT SPINE Implanted: Qty: 1 on 04/01/2018 by Jonathan Bray MD [id number] / / Maxcess 4 Surgical Access Kit - IPM N/A: N/A NUVASIVE [id number] IMPLANT SPINE Implanted: Qty: 1 on 04/01/2018 by Jonathan Bray MD 08/23/2020 [id number] / / NA Modulus Xlw, [id number] 10deg - IPM N/A: N/A NUVASIVE [id number] IMPLANT SPINE Implanted: Qty: 1 on 04/01/2018 by Jonathan Bray MD [id number] / / Reline Mas Cocr Pratik, [id number] IPM N/A: N/A NUVASIVE Straight - [id number] IMPLANT SPINE Implanted: Qty: 4 on 04/01/2018 by DEVICES Jonathan Irizarry MD [id number] / / Nit K-Wire Precept - [id number] IPM N/A: N/A NUVASIVE Implanted: Qty: 6 on 04/01/2018 by IMPLANT SPINE Jonathan Irizarry MD DEVICES [id number] / / Reline Open Lock Screw - [id number] IPM N/A: N/A NUVASIVE Implanted: Qty: 14 on 04/01/2018 by IMPLANT SPINE Jonathan Irizarry MD DEVICES 07/04/2020 [id number] / / NA Reline Mas Ti Pratik 5.5x25mm Lordotic IPM N/A: N/A NUVASIVE - [id number] IMPLANT SPINE Implanted: Qty: 1 on 04/01/2018 by Jonathan Bray MD 08/13/2020 [id number] / / NA Reline Mas Screw, 5.5x35mm 2c IPM N/A: N/A NUVASIVE Polyaxial - [id number] IMPLANT SPINE Implanted: Qty: 1 on 04/01/2018 by Jonathan Bray MD 08/13/2020 [id number] / / NA Reline Mas Screw, 5.5x40mm 2c IPM N/A: N/A NUVASIVE Polyaxial - [id number] IMPLANT SPINE Implanted: Qty: 1 on 04/01/2018 by Jonathan Bray MD [id number] / / Reline Mas Screw, 6.5x45mm 2c IPM N/A: N/A NUVASIVE Polyaxial - [id number] IMPLANT SPINE Implanted: Qty: 2 on 04/01/2018 by Jonathan Bray MD 03/13/2022 [id number] / / NA Reline Mas Screw, 5.5x40mm 2c IPM N/A: N/A NUVASIVE Polyaxial - [id number] IMPLANT SPINE Implanted: Qty: 1 on 04/01/2018 by Jonathan Bray MD 03/18/2020 [id number] / / [id number] Modulus Xlw, [id number] 10deg - IPM N/A: N/A NUVASIVE [id number] IMPLANT SPINE Implanted: Qty: 1 on 04/01/2018 by Jonathan Bray MD 03/13/2020 [id number] / / NA Reline Mas Screw, 6.5x35mm 2c IPM N/A: N/A NUVASIVE Polyaxial - [id number] IMPLANT SPINE Implanted: Qty: 1 on 04/01/2018 by DEVICES Jonathan Irizarry MD [id number] / / Reline Mas Screw, 6.5x40mm 2c IPM N/A: N/A NUVASIVE Polyaxial - [id number] IMPLANT SPINE Implanted: Qty: 2 on 04/01/2018 by DEVICES Jonathan Irizarry MD [id number] / / Reline Mas Screw, 6.5x50mm 2c IPM N/A: N/A NUVASIVE Polyaxial - [id number] IMPLANT SPINE Implanted: Qty: 1 on 04/01/2018 by DEVICES Jonathan Irizarry MD [id number] / / Reline Mas Screw, 7.5x45mm 2c IPM N/A: N/A NUVASIVE Polyaxial - [id number] IMPLANT SPINE Implanted: Qty: 1 on 04/01/2018 by DEVICES Jonathan Irizarry MD [id number] / / Reline Mas Screw, 8.5x40mm 2c IPM N/A: N/A NUVASIVE Polyaxial - [id number] IMPLANT SPINE Implanted: Qty: 1 on 04/01/2018 by DEVICES Jonathan Irizarry MD [id number] / / Reline Mas Screw, 7.5x40mm 2c IPM N/A: N/A NUVASIVE Polyaxial - [id number] IMPLANT SPINE Implanted: Qty: 1 on 04/01/2018 by DEVICES Jonathan Irizarry MD 03/23/2020 [id number] / / NA Reline Mas Screw, 8.5x70mm 2c Poly IPM N/A: N/A NUVASIVE Iliac - [id number] IMPLANT SPINE Implanted: Qty: 2 on 04/01/2018 by DEVICES Jonathan Irizarry MD 08/24/2022 [id number] / / [id number] Material Bone Hmsts Wtrsolbl 2.5g Orthopedic N/A: N/A Ostene - [id number] Trauma Implanted: Qty: 1 on 04/01/2018 by Implants Jonathan Irizarry MD [id number] / / Kit Dil M5 Xlif - [id number] Spinal N/A: N/A NUVASIVE Implanted: Qty: 1 on 04/01/2018 by Implants Jonathan Irizarry MD [id number] / / Kit Dil M5 Xlif - [id number] Spinal N/A: N/A NUVASIVE Implanted: Qty: 1 on 04/01/2018 by Implants Jonathan Irizarry MD 01/22/2019 [id number] / / [id number] Cement Bone Full-Dose Premxd W/ Surgical N/A: Back, GAEL Tobr Simplex P Pack 10/Ea - Bone Other than ORTHOPEDIC [id number] Cement Spine S Implanted: Qty: 1 on 04/26/2018 by HIPS-KNEES Felisa Kwon MD 02/22/2022 [id number] / / [id number] 500mg, Amniofill Human Placental N/A: N/A MIMEDX [...] CBC WITH PLATELET AND Routine 05/23/2018 DIFFERENTIAL after 05/23/2018 Results * CBC with platelet and differential (06/06/2018) Only the most recent of 3 results within the time period is included. HCT 34.5 % WBC 6.9 10*3/mL Platelet count 262 HGB 11.1 g/dL Neutrophils 61 Lymphocytes 30 Monocytes 6 Eosinophils 3 Basophils 0 Specimen Blood Narrative Performed At * C-reactive protein (06/06/2018) Only the most recent of 3 results within the time period is included. CRP 3.1 mg/dL Specimen Blood Narrative Performed At * Basic metabolic panel (06/06/2018) Only the most recent of 3 results within the time period is included. Creatinine 0.77 mg/dL BUN 24 mg/dL Specimen Blood Narrative Performed At * XR Spine Scoliosos 2-3 Views (06/01/2018 1:20 PM CDT) Specimen Narrative Performed At EXAMINATION:XR SPINE SCOLIOSIS 2-3 VIEWS [facility] CLINICAL HISTORY:M41.9 Scoliosisunspecified, SCOLIOSIS COMPARISON:Scoliosis x-ray [...] which is slightly improved from prior exam. [facility]-[id number] Procedure Note Hm Interface, Radiology Results Incoming [...] which is slightly improved from prior exam. [facility]-[id number] Performing Organization Address City/State/Zipcode Phone Number [facility] [address] [place] [address] after 05/23/2018 Insurance Type Payer Benefit Subscriber ID Effective Phone Address Plan / Dates Group HMO UHC MEDICARE UNITED xxxxxxxxx 2017-P HEALTHCARE resent MEDICARE Medicaid MEDICAID MEDICAID xxxxxxxxx 2013-P resent Surgery Advance Directives Patient has advance care planning documents on file. For more information, rebeca españa contact: Simón Robb [address] [place] [address]
== END 2019-05-24 19:45 | disposition home or self-care (01) ==
LOC: FSED 18:34
DX: M54.5 Low back pain (principal); M54.16 Radiculopathy, lumbar region; J44.9 Chronic obstructive pulmonary disease, unspecified; F41.9 Anxiety disorder, unspecified; E78.5 Hyperlipidemia, unspecified; F32.9 Major depressive disorder, single episode, unspecified; F17.210 Nicotine dependence, cigarettes, uncomplicated
CPT/HCPCS: 99282

== ENCOUNTER 2019-07-02 21:38 | Emergency (ER) | payer MEDICARE, OTHER ==
[~2019-07-02] VITALS: Ht 149.9 cm; Wt 73.9 kg
--- OUTSIDE RECORDS SUMMARY | 2019-07-02 21:41 | XMS REPORT | Clinical Summary ---
Author Author [facility] [employer] [facility] Address Unknown Phone Unavailable Care Team Providers Care Bone Char Operator Name Role Phone Asked, No Pcp PCP Unavailable Allergies Comments Active Allergy Reactions Severity Noted Date Bacitracin 10/27/2017 Codeine Itching 05/01/2016 Nsaids (Non-Steroidal GI 05/01/2016 Anti-Inflammatory Drug) Intolerance Medications End Date Status Medication Sig Dispensed Refills Start Date Active benzocaine-menthol Apply 1 0 (CEPACOL MAX) [...] tablet mouth 4 (four) times a day. Active baclofen (LIORESAL) 20 MG Take 20 mg by 0 tablet mouth 3 9 (three) times a day. Active buPROPion XL (WELLBUTRIN TAKE 1 TABLET 2 XL) 300 MG 24 hr tablet BY MOUTH 9 EVERY DAY IN THE MORNING Active busPIRone (BUSPAR) 15 MG Take 15 mg by 1 tablet mouth 3 9 (three) times a day. Active dicyclomine (BENTYL) 20 Take 20 mg by 3 mg tablet mouth 4 9 (four) times a day. Active DEPO-ESTRADIOL 5 mg/mL INJECT 1 ML 1 injection INTRAMUSCULAR 9 LY ONCE A MONTH Active HYDROcodone-acetaminophen Take 1 tablet 0 (NORCO) 10-325 mg per by mouth 3 9 tablet (three) times a day. Active levothyroxine (SYNTHROID, TAKE ONE (1) 2 LEVOXYL) 100 mcg tablet TABLET(S) BY 9 MOUTH ONCE A DAY. Active methocarbamol (ROBAXIN) TAKE ONE (1) 0 750 MG tablet TABLET(S) BY 9 MOUTH FOUR TIMES A DAY. Active morPHINE TAKE ONE (1) 0 immediate-release 15 MG TABLET(S) BY 9 tablet MOUTH 6 TIMES A DAY. Active NARCAN 4 mg/actuation USE 1 SPRAY 0 spray,non-aerosol IN ONE 9 NOSTRIL NEEDED Active oxyCODone (ROXICODONE) 10 TAKE ONE (1) 0 MG tablet TABLET(S) BY 9 MOUTH 6 TIMES A DAY. Active promethazine (PHENERGAN) TAKE HALF A 0 50 MG tablet TABLET EVERY 9 12 HOURS NEEDED Active ranitidine (ZANTAC) 300 Take 600 mg 0 MG tablet by mouth 9 daily. Active mesalamine (LIALDA) 1.2 Take 2.4 g by 1 gram EC tablet mouth daily. 9 04/15/2019 sucralfate (CARAFATE) 1 Take 1 tablet [...] by mouth 3 (three) times a day. 06/05/2019 Discontinued ondansetron (ZOFRAN) 8 MG Take 1 tablet 20 tablet 0 tablet (8 mg total) 8 by mouth every 6 (six) hours as needed for nausea. 04/16/2019 atorvastatin (LIPITOR) 40 Take 1 tablet 30 tablet 11 MG tablet (40 mg total) 8 by mouth daily. 06/05/2019 Discontinued mesalamine (ASACOL) 800 Take 3 0 mg EC tablet tablets 8 (2,400 mg total) by mouth daily. 04/15/2019 fenofibrate (LOFIBRA) 54 [...] (75 mcg 8 total) by mouth daily. 10/26/2018 HYDROcodone-acetaminophen Take 1 tablet 50 tablet [...] Encounters Care Team Description Date Type Specialty Ritu Sewell MA Severe pain (Primary Dx) 06/07/2019 Orders Only Orthopedic Surgery Anant Richey MD Lumbago of lumbar region with sciatica (Primary Dx) 06/01/2019 Office Visit Orthopedic Surgery Radha Zurita MA Scoliosis of thoracolumbar spine, [...] imbalance (Primary Dx) 07/06/2018 Office Visit Neurosurgery after 07/01/2018 Family History Medical History Relation Name Comments No Known Problems Father Cancer Mother Cancer Sister Relation Name Status Comments Father Mother Sister Alive Social History Date Tobacco Use Types Packs/Day Years Used Current Every Day Smoker 1 Smokeless Tobacco: Never Used Tobacco Cessation: Ready to Quit: No; Counseling Given: Yes Comments: havent smoked in 30 days Drinks/Week oz/Week Comments Alcohol Use No Sex Assigned at Date Recorded Not on file Industry Job Start Date Occupation Not on file Not on file Not on file Travel End Travel History Travel Start No recent travel history available. Last Filed Vital Signs Reading Time Taken Comments Vital Sign 126/67 10/08/2018 8:00 PM DINING MANAGER Blood Pressure 88 10/08/2018 8:00 PM DINING MANAGER Pulse 36.4 C (97.5 F) 10/08/2018 3:55 PM DINING MANAGER Temperature 16 10/08/2018 8:00 PM DINING MANAGER Respiratory Rate 98% 10/08/2018 8:00 PM DINING MANAGER Oxygen Saturation - - Inhaled Oxygen Concentration - - Weight 149.9 cm (4' 11") 10/08/2018 3:55 PM DINING MANAGER Height - - Body Mass Index Plan of Treatment Health Maintenance Due Date Last Done Comments CERVICAL CANCER SCREENING 1979 BREAST CANCER SCREENING 02/07/2008 COLONOSCOPY SCREENING 02/07/2008 SHINGLES VACCINES (#1) 02/07/2008 INFLUENZA VACCINE 05/25/2019 Implants Device Identifier Shelf Expiration Date Model / Serial / Lot Implanted Type Area Manufactur er 08/16/2020 [id number] / / [id number] Mazor X Spine Disposable Kit Accessorie N/A: N/A Implanted: Qty: 1 on 04/01/2018 by Jonathan Whitaker MD at [facility] 01/22/2021 [id number] / / [id number] 2.5cc Healthlink Ifactor Putty, Bone Graft N/A: N/A HEALTHLINK Peptide Enhanced Bone Graft Substitute Implanted: Qty: 1 on 04/01/2018 by Jonathan Irizarry MD at [facility] 08/25/2022 [id number] / [id number] / [id number] Bone Matriz Osteocel Pro Large - Human N/A: N/A NUVASIVE [id number] - [id number] Tissue Implanted: Qty: 1 on 04/01/2018 by Implants Jonathan Irizarry MD at [facility] 08/10/2022 [id number] / [id number] / [id number] Bone Cancellous 30ml Chips - Human N/A: N/A RTI [id number] - [id number] Tissue SURGICAL Implanted: Qty: 1 on 04/01/2018 by Implants INC. Jonathan Irizarry MD at [facility] 03/25/2019 [id number] / / [id number] Kit Bone Grft Lmbr Tprd 8ml Xxl Human N/A: N/A MEDTRONIC Infuse - [id number] Tissue SPINAL AND Implanted: Qty: 1 on 04/01/2018 by Implants BIOLOGICS Jonathan Irizarry MD at [facility] 07/08/2019 [id number] / [id number] / [id number] Paste Dbm Easy-Dispensing Wdmth Syr Human N/A: N/A MEDTRONIC 10ml [address] - [id number] - Tissue SPINAL [id number] Implants GRAFT Implanted: Qty: 1 on 04/01/2018 by TECHNOLOGI Jonathan Irizarry MD at [facility] 08/30/2019 [id number] / [id number] / [id number] Drafton Dbm Orthoblend Small Defect Human N/A: N/A MEDTRONIC 5cc - [id number] - [id number] Tissue SPINAL AND Implanted: Qty: 1 on 04/01/2018 by Implants BIOLOGICS Jonathan Irizarry MD at [facility] [id number] / / Maxcess 4 Surgical Access Kit - IPM N/A: N/A NUVASIVE [id number] IMPLANT SPINE Implanted: Qty: 1 on 04/01/2018 by DEVICES Jonathan Irizarry MD at [facility] 12/14/2022 [id number] / / [id number] Modulus Xlw, [id number] 10deg - IPM N/A: N/A NUVASIVE [id number] IMPLANT SPINE Implanted: Qty: 1 on 04/01/2018 by DEVICES Jonathan Irizarry MD at [facility] [id number] / / Maxcess 4 Surgical Access Kit - IPM N/A: N/A NUVASIVE [id number] IMPLANT SPINE Implanted: Qty: 1 on 04/01/2018 by DEVICES Jonathan Irizarry MD at [facility] 08/23/2020 [id number] / / NA Modulus Xlw, [id number] 10deg - IPM N/A: N/A NUVASIVE [id number] IMPLANT SPINE Implanted: Qty: 1 on 04/01/2018 by DEVICES Jonathan Irizarry MD at [facility] [id number] / / Reline Mas Cocr Pratik, [id number] IPM N/A: N/A NUVASIVE Straight - [id number] IMPLANT SPINE Implanted: Qty: 4 on 04/01/2018 by DEVICES Jonathan Irizarry MD at [facility] [id number] / / Nit K-Wire Precept - [id number] IPM N/A: N/A NUVASIVE Implanted: Qty: 6 on 04/01/2018 by IMPLANT SPINE Jonathan Irizarry MD at [facility] DEVICES [id number] / / Reline Open Lock Screw - [id number] IPM N/A: N/A NUVASIVE Implanted: Qty: 14 on 04/01/2018 by IMPLANT SPINE Jonathan Irizarry MD at [facility] DEVICES 07/04/2020 [id number] / / NA Reline Mas Ti Pratik 5.5x25mm Lordotic IPM N/A: N/A NUVASIVE - [id number] IMPLANT SPINE Implanted: Qty: 1 on 04/01/2018 by DEVICES Jonathan Irizarry MD at [facility] 08/13/2020 [id number] / / NA Reline Mas Screw, 5.5x35mm 2c IPM N/A: N/A NUVASIVE Polyaxial - [id number] IMPLANT SPINE Implanted: Qty: 1 on 04/01/2018 by Jonathan Bray MD at [facility] 08/13/2020 [id number] / / NA Reline Mas Screw, 5.5x40mm 2c IPM N/A: N/A NUVASIVE Polyaxial - [id number] IMPLANT SPINE Implanted: Qty: 1 on 04/01/2018 by DEVICES Jonathan Irizarry MD at [facility] [id number] / / Reline Mas Screw, 6.5x45mm 2c IPM N/A: N/A NUVASIVE Polyaxial - [id number] IMPLANT SPINE Implanted: Qty: 2 on 04/01/2018 by Jonathan Bray MD at [facility] 03/13/2022 [id number] / / NA Reline Mas Screw, 5.5x40mm 2c IPM N/A: N/A NUVASIVE Polyaxial - [id number] IMPLANT SPINE Implanted: Qty: 1 on 04/01/2018 by Jonathan Bray MD at [facility] 03/18/2020 [id number] / / [id number] Modulus Xlw, [id number] 10deg - IPM N/A: N/A NUVASIVE [id number] IMPLANT SPINE Implanted: Qty: 1 on 04/01/2018 by Jonathan Bray MD at [facility] 03/13/2020 [id number] / / NA Reline Mas Screw, 6.5x35mm 2c IPM N/A: N/A NUVASIVE Polyaxial - [id number] IMPLANT SPINE Implanted: Qty: 1 on 04/01/2018 by Jonathan Bray MD at [facility] [id number] / / Reline Mas Screw, 6.5x40mm 2c IPM N/A: N/A NUVASIVE Polyaxial - [id number] IMPLANT SPINE Implanted: Qty: 2 on 04/01/2018 by Jonathan Bray MD at [facility] [id number] / / Reline Mas Screw, 6.5x50mm 2c IPM N/A: N/A NUVASIVE Polyaxial - [id number] IMPLANT SPINE Implanted: Qty: 1 on 04/01/2018 by Jonathan Bray MD at [facility] [id number] / / Reline Mas Screw, 7.5x45mm 2c IPM N/A: N/A NUVASIVE Polyaxial - [id number] IMPLANT SPINE Implanted: Qty: 1 on 04/01/2018 by Jonathan Bray MD at [facility] [id number] / / Reline Mas Screw, 8.5x40mm 2c IPM N/A: N/A NUVASIVE Polyaxial - [id number] IMPLANT SPINE Implanted: Qty: 1 on 04/01/2018 by DEVICES Jonathan Irizarry MD at [facility] [id number] / / Reline Mas Screw, 7.5x40mm 2c IPM N/A: N/A NUVASIVE Polyaxial - [id number] IMPLANT SPINE Implanted: Qty: 1 on 04/01/2018 by DEVICES Jonathan Irizarry MD at [facility] 03/23/2020 [id number] / / NA Reline Mas Screw, 8.5x70mm 2c Poly IPM N/A: N/A NUVASIVE Iliac - [id number] IMPLANT SPINE Implanted: Qty: 2 on 04/01/2018 by DEVICES Jonathan Irizarry MD at [facility] 08/24/2022 [id number] / / [id number] Material Bone Hmsts Wtrsolbl 2.5g Orthopedic N/A: N/A Ostene - [id number] Trauma Implanted: Qty: 1 on 04/01/2018 by Implants Jonathan Irizarry MD at [facility] [id number] / / Kit Dil M5 Xlif - [id number] Spinal N/A: N/A NUVASIVE Implanted: Qty: 1 on 04/01/2018 by Implants Jonathan Irizarry MD at [facility] [id number] / / Kit Dil M5 Xlif - [id number] Spinal N/A: N/A NUVASIVE Implanted: Qty: 1 on 04/01/2018 by Implants Jonathan Irizarry MD at [facility] 01/22/2019 [id number] / / [id number] Cement Bone Full-Dose Premxd W/ Surgical N/A: Back, GAEL Tobr Simplex P Pack 10/Ea - Bone Other than ORTHOPEDIC [id number] Cement Spine S Implanted: Qty: 1 on 04/26/2018 by HIPS-KNEES Felisa Kwon MD at [facility] Description:20 BEADS TOTAL (12 IN MIDLINE, 8 IN RIGHT WOUND) 02/22/2022 AF-0500 / / [id number] 500mg, Amniofill Human Placental N/A: N/A MIMEDX Tissue Allograft Implanted: Qty: 1 on 04/01/2018 by Jonathan Irizarry MD at [facility] Results Not on fileafter 07/01/2018 Additional Health Concerns Resolved Time Infection Noted Time ESBL (C ) 04/26/2018 9:36 AM CDT Insurance Type Payer Benefit Subscriber ID Effective Phone Address Plan / Dates Group HMO [facility] MEDICARE [facility] DUAL xxxxxxxxx 2018-P COMPLETE resent [facility] Medicaid MEDICAID MEDICAID xxxxxxxxx 2013-P resent [place] Son Reconstruc Self 1960 [id number] (Home) [place] [address] Surgery Advance Directives For more information, please contact: [phone] 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
[2019-07-02] MEDS ORDERED: TRAMADOL HCL 50 MG TAB PO STA (22:13)
[2019-07-02] MEDS ORDERED: SODIUM CHLORIDE 0.9% 1000ML 1,000 ML IV SCH (22:15)
[2019-07-02] MEDS ORDERED: SODIUM CHLORIDE 0.9% 1000ML 1,000 ML ONE (22:17)
[2019-07-02] MEDS ORDERED: TRAMADOL HCL 50 MG TAB ONE (22:17)
--- NOTE | 2019-07-02 23:11 | NUR ---
PATIENT HAS BEEN DISCHARGED BY DR VARMA, ATTEMPTED TO REMOVE IV BUT IS UPSET BECAUSE FEELS THAT SHE MAY NEED ADDITIONAL FLUIDS, NOTIFIED HER THAT THE LABS DO NOT INDICATE SHE IS DEHYDRATED, SHE THEN MENTIONS THAT HER LEGS ARE BEGINNING TO SWELL? I REITERATE THAT SHES PROBABLY GOT TOO MUCH FLUID AN BOARD NOW SINCE SHE REALLY ISNT DEHYDRATED, PT ALSO WENT TO RESTROOM ON HER OWN WITHOUT ANY ASSISTANCE APPROX 45 MINUTES AGO. SHE IS ATTEMPTING TO GET A TAXI TO COME PICK HER UP? STATES SHE HAS NOT BEEN ABLE TO? I SPOKE WITH THE CLOTH BOIL OFF MACHINE OPERATOR AND SHE INDICATES IF PT NO SUCCESSFUL IN OBTAINING A RIDE, THEN WE CAN GET A TAXI VOUCHER FOR HER TO GO HOME.
== END 2019-07-02 23:37 | disposition home or self-care (01) ==
LOC: FSED 21:38
DX: R19.7 Diarrhea, unspecified (principal); F11.23 Opioid dependence with withdrawal; J44.9 Chronic obstructive pulmonary disease, unspecified; F41.9 Anxiety disorder, unspecified; F32.9 Major depressive disorder, single episode, unspecified; F17.210 Nicotine dependence, cigarettes, uncomplicated
CPT/HCPCS: 80048; 85025; 99283; J7030

== ENCOUNTER 2019-09-24 07:07 | Emergency (ER) | payer MEDICARE ==
[~2019-09-24] VITALS: Ht 147.3 cm; Wt 56.9 kg
[2019-09-24 07:53] VITALS: BP 125/73
[2019-09-24] MEDS ORDERED: ULTRAM50 MG PO (07:57)
== END 2019-09-24 08:17 | disposition home or self-care (01) ==
LOC: FSED 07:07
DX: M54.5 Low back pain (principal); G89.29 Other chronic pain
CPT/HCPCS: 99283

== ENCOUNTER → 2021-12-01 | Outpatient (CLI) | payer MEDICARE | LOC: US 07:44 | PROVIDERS: ATTEND Internal Medicine Gastroenterology | DX: R10.84 Generalized abdominal pain (principal) | CPT/HCPCS: 76700 ==

== ENCOUNTER 2022-04-08 18:26 | Emergency (ER) | payer MEDICARE ==
[~2022-04-08] VITALS: Ht 147.3 cm; Wt 56.7 kg
[2022-04-08] MEDS ORDERED: Morphine 4mg INJECTION 4 MG/ML INJ IV PRN (19:00)
[2022-04-08] MEDS ORDERED: DEXAMETHASONE 10MG/ML PF INJ IV ONE (19:00)
[2022-04-08] MEDS ORDERED: ONDANSETRON HCL INJ 2MG/ML 2ML 2 MG/ML VIAL IV PRN (19:00)
[2022-04-08] MEDS ORDERED: DEXAMETHASONE SOD PHOS 10 MG/1 ML VIAL ONE (19:16)
[2022-04-08] MEDS ORDERED: ONDANSETRON HCL INJ 2MG/ML 2ML 2 MG/ML VIAL ONE (19:17)
[2022-04-08 19:41] LABS: BASOPHILS # (AUTO) 0.1 (0.0-0.1); BASOPHILS % 0.6 % (0.0-1.0); EOSINOPHILS # (AUTO) 0.1 (0.0-0.4); HEMATOCRIT 34.8 % (34.2-44.1); HEMOGLOBIN 10.1 g/dL (12.0-16.0); LYMPHOCYTES # (AUTO) 1.9 (1.0-3.2); LYMPHOCYTES % 21.5 % (18.0-39.1); MEAN CORPUSCULAR HEMOGLOBIN 23.2 pg (28-32); MONOCYTES # (AUTO) 0.6 (0.2-0.8); MONOCYTES % 7.1 % (4.4-11.3); NEUTROPHILS # (AUTO) 6.1 (2.1-6.9); NEUTROPHILS % 69.1 % (38.7-80.0); PLATELET COUNT 271 x10e3/uL (140-360); RED BLOOD COUNT 4.35 x10e6/uL (3.6-5.1); RED CELL DISTRIBUTION WIDTH 18.6 % (11.7-14.4)
[2022-04-08] MEDS ORDERED: SODIUM CHLORIDE 0.9% 1000ML 1,000 ML IV STA (19:56)
[2022-04-08 20:05] LABS: ANION GAP 16.8 mmol/L (8-16); CALCIUM 9.1 mg/dL (8.4-10.2); CREATININE, SERUM 0.85 mg/dL (0.57-1.11); POTASSIUM 3.8 mmol/L (3.5-5.1)
[2022-04-08 21:41] VITALS: BP 114/68
== END 2022-04-08 20:55 | disposition home or self-care (01) ==
LOC: ER 19:11
DX: M54.50 Low back pain, unspecified (principal); R25.2 Cramp and spasm; E03.9 Hypothyroidism, unspecified; K21.9 Gastro-esophageal reflux disease without esophagitis; G43.909 Migraine, unspecified, not intractable, without status migrainosus; E78.5 Hyperlipidemia, unspecified; F32.A Depression, unspecified; F41.9 Anxiety disorder, unspecified; Z88.6 Allergy status to analgesic agent; Z88.8 Allergy status to other drugs, medicaments and biological substances; Z79.899 Other long term (current) drug therapy
CPT/HCPCS: 36415; 80048; 85025; 93005; 99283; J1100; J2270; J2405; J7030

== ENCOUNTER 2023-01-11 12:26 | Emergency (ER) | payer MEDICARE ==
[~2023-01-11] VITALS: Ht 147.3 cm; Wt 56.7 kg
[2023-01-11] MEDS ORDERED: FENTANYL CITRATE/PF 100MCG/2 ML INJ IV ONE ×2 (12:45→14:30)
[2023-01-11] MEDS ORDERED: SODIUM CHLORIDE 0.9% 1000ML 1,000 ML IV ONE (12:45)
[2023-01-11] MEDS ORDERED: ONDANSETRON HCL INJ 2MG/ML 2ML 2 MG/ML VIAL IV PRN (12:45)
[2023-01-11 13:23] LABS: BASOPHILS # (AUTO) 0.1 (0.0-0.1); EOSINOPHILS # (AUTO) 0.2 (0.0-0.4); EOSINOPHILS % 1.7 % (0.0-6.0); HEMATOCRIT 38.3 % (34.2-44.1); HEMOGLOBIN 11.1 g/dL (12.0-16.0); LYMPHOCYTES # (AUTO) 1.5 (1.0-3.2); LYMPHOCYTES % 16.1 % (18.0-39.1); MEAN CORPUSCULAR HEMOGLOBIN 24.2 pg (28-32); MEAN CORPUSCULAR VOLUME 83.6 fL (81-99); MONOCYTES # (AUTO) 0.7 (0.2-0.8); MONOCYTES % 7.5 % (4.4-11.3); NEUTROPHILS # (AUTO) 6.6 (2.1-6.9); NEUTROPHILS % 72.8 % (38.7-80.0); PLATELET COUNT 274 x10e3/uL (140-360); RED BLOOD COUNT 4.58 x10e6/uL (3.6-5.1); RED CELL DISTRIBUTION WIDTH 17.8 % (11.7-14.4)
[2023-01-11 13:55] LABS: ALBUMIN 3.3 g/dL (3.5-5.0); ALBUMIN/GLOBULIN RATIO 0.8 (0.8-2.0); ANION GAP 18.6 mmol/L (8-16); CALCIUM 9.1 mg/dL (8.4-10.2); CREATININE, SERUM 0.87 mg/dL (0.57-1.11); POTASSIUM 4.6 mmol/L (3.5-5.1)
[2023-01-11] MEDS ORDERED: HYDROMORPHONE 1MG/1ML INJ IV PRN (14:15)
[2023-01-11] MEDS ORDERED: DONNATAL/LIDOCAINE/MAALOX 30 ML SUSP PO ONE (14:15)
[2023-01-11] MEDS ORDERED: IOPAMIDOL 370 MG/ML 100 ML INFUS..BTL INJ ONE (14:18)
[2023-01-11] MEDS ORDERED: GADOBENATE DIMEGLUMINE 1 ML IV ONE (17:41)
[2023-01-11 20:56] VITALS: BP 120/70
== END 2023-01-11 20:58 | disposition home or self-care (01) ==
LOC: ER 12:35
DX: R10.13 Epigastric pain (principal); M54.50 Low back pain, unspecified; G89.29 Other chronic pain; J44.9 Chronic obstructive pulmonary disease, unspecified; Z99.81 Dependence on supplemental oxygen; E78.5 Hyperlipidemia, unspecified; E03.9 Hypothyroidism, unspecified; F41.9 Anxiety disorder, unspecified; Z87.19 Personal history of other diseases of the digestive system
CPT/HCPCS: 36415; 72158; 74177; 80053; 83690; 85025; 99284; C9113; J2405; J3010; J7030; Q9967

== ENCOUNTER 2023-01-17 14:39 | Inpatient (IN) | payer MEDICARE ==
[~2023-01-17] VITALS: Ht 147.3 cm; Wt 56.7 kg
[2023-01-17 15:53] LABS: BASOPHILS # (AUTO) 0.1 (0.0-0.1); BASOPHILS % 0.5 % (0.0-1.0); EOSINOPHILS # (AUTO) 0.1 (0.0-0.4); EOSINOPHILS % 0.8 % (0.0-6.0); HEMATOCRIT 37.7 % (34.2-44.1); HEMOGLOBIN 11.1 g/dL (12.0-16.0); LYMPHOCYTES # (AUTO) 1.6 (1.0-3.2); LYMPHOCYTES % 16.8 % (18.0-39.1); MEAN CORPUSCULAR HEMOGLOBIN 24.6 pg (28-32); MEAN CORPUSCULAR HGB CONC 29.4 g/dL (31-35); MEAN CORPUSCULAR VOLUME 83.6 fL (81-99); MONOCYTES # (AUTO) 0.8 (0.2-0.8); NEUTROPHILS # (AUTO) 6.9 (2.1-6.9); NEUTROPHILS % 73.2 % (38.7-80.0); PLATELET COUNT 290 x10e3/uL (140-360); RED BLOOD COUNT 4.51 x10e6/uL (3.6-5.1); RED CELL DISTRIBUTION WIDTH 17.8 % (11.7-14.4)
[2023-01-17 16:07] LABS: ALBUMIN 3.4 g/dL (3.5-5.0); ALBUMIN/GLOBULIN RATIO 0.8 (0.8-2.0); CALCIUM 9.1 mg/dL (8.4-10.2); CREATININE, SERUM 0.91 mg/dL (0.57-1.11)
[2023-01-17] MEDS ORDERED: ONDANSETRON HCL INJ 2MG/ML 2ML 2 MG/ML VIAL IV PRN ×2 (16:45→21:30)
[2023-01-17] MEDS ORDERED: SODIUM CHLORIDE 0.9% 1000ML 1,000 ML IV SCH ×2 (16:45→21:00)
[2023-01-17] MEDS ORDERED: Morphine 4mg INJECTION 4 MG/ML INJ IV PRN (17:30)
[2023-01-17] MEDS ORDERED: Morphine 4mg INJECTION 4 MG/ML INJ IV ONE (17:30)
[2023-01-17] MEDS ORDERED: ALBUTEROL SULF 0.083% NEB SOLN 3 ML NEB NEB ONE (18:30)
[2023-01-17] MEDS ORDERED: DONNATAL/LIDOCAINE/MAALOX 30 ML SUSP PO ONE (19:00)
[2023-01-17] MEDS ORDERED: LEVALBUTEROL HCL SOLN NEBU 0.63 MG/3 ML NEB ONE (19:22)
[2023-01-17] MEDS ORDERED: LEVALBUTEROL HCL SOLN NEBU 1.25 MG/3 ML NEB INH ONE ×2 (19:30)
[2023-01-17] MEDS ORDERED: MAGNESIUM/ALUMINUM/SIMETHICONE 30 ML UDC ONE (19:32)
[2023-01-17] MEDS ORDERED: LIDOCAINE VISC 2% SOLN 15 ML UDC ONE (19:32)
[2023-01-17] MEDS ORDERED: BELLADONNA ALK/PHENOBARBITAL 5 ML UDC ONE (19:32)
[2023-01-17 20:00] VITALS: BP 133/81
[2023-01-17] MEDS ORDERED: BISACODYL 5 MG TAB EC PO ONE ×5 (20:00→21:00)
[2023-01-17] MEDS ORDERED: CITRATE OF MAGNESIA 300ML BOTTLE PO ONE ×4 (20:00→22:00)
[2023-01-17] MEDS ORDERED: MORPHINE SULFAT15 MG PO (20:28)
[2023-01-17 21:00] VITALS: BP 133/81
[2023-01-17] MEDS: Morphine 4mg INJECTION 4 MG/ML INJ IV PRN (21:36)
[2023-01-17] MEDS: SODIUM CHLORIDE 0.9% 1000ML 1,000 ML IV SCH (21:45)
[2023-01-17] MEDS ORDERED: METHYLPREDNISOLONE SOD SUCC 125 MG/2ML VIAL IV ONE (23:30)
[2023-01-18] VITALS (7 sets, daily range): BP systolic 99–137; BP diastolic 58–72
[2023-01-18] MEDS ORDERED: BISACODYL 5 MG TAB EC PO ONE ×4 (00:15→23:15)
[2023-01-18] MEDS: METOCLOPRAMIDE HCL 10 MG/2ML VIAL IV SCH ×5 (00:27→23:33)
[2023-01-18] MEDS: LEVOFLOXACIN 500MG/D5W 100ML 100 ML IV SCH ×2 (00:37→23:33)
[2023-01-18] MEDS: METRONIDAZOLE 500MG/NS 100ML 100 ML IV SCH ×5 (00:37→23:33)
[2023-01-18] MEDS: Morphine 4mg INJECTION 4 MG/ML INJ IV PRN ×6 (01:46→22:20)
[2023-01-18] MEDS ORDERED: BISACODYL 10 MG SUPP PR ONE (03:00)
[2023-01-18 05:31] LABS: INR 1.02; PROTHROMBIN TIME 13.9 seconds (11.9-14.5)
[2023-01-18] MEDS: SODIUM CHLORIDE 0.9% 1000ML 1,000 ML IV SCH ×3 (05:37→20:21)
[2023-01-18] MEDS: CLONAZEPAM 0.5 MG TAB PO SCH ×5 (08:33→23:33)
[2023-01-18] MEDS: METHYLPREDNISOLONE SOD SUCC 125 MG/2ML VIAL IV SCH ×2 (09:26→20:19)
[2023-01-18] MEDS ORDERED: LEVALBUTEROL (10:10)
[2023-01-18] MEDS ORDERED: BUMETANIDE2 MG PO (10:10)
[2023-01-18] MEDS ORDERED: STOOL SOFTNER PO (10:10)
[2023-01-18] MEDS ORDERED: STOOL SOFT PO (10:10)
[2023-01-18] MEDS ORDERED: LEVOTHYROXINE SODIUM 100 MCG/VIAL IV ONE (11:00)
[2023-01-18] MEDS ORDERED: CITRATE OF MAGNESIA 300ML BOTTLE PO ONE (12:30)
[2023-01-18] MEDS: LEVALBUTEROL HCL SOLN NEBU 1.25 MG/3 ML NEB INH PRN ×2 (15:10→20:45)
[2023-01-18] MEDS: ONDANSETRON HCL INJ 2MG/ML 2ML 2 MG/ML VIAL IV PRN ×2 (16:46→22:20)
[2023-01-19] VITALS (8 sets, daily range): BP systolic 114–156; BP diastolic 55–88
[2023-01-19] MEDS ORDERED: BISACODYL 5 MG TAB EC PO ONE ×2 (00:30)
[2023-01-19] MEDS: LEVALBUTEROL HCL SOLN NEBU 1.25 MG/3 ML NEB INH PRN ×2 (01:40→06:30)
[2023-01-19] MEDS: Morphine 4mg INJECTION 4 MG/ML INJ IV PRN ×4 (03:25→20:29)
[2023-01-19] MEDS: SODIUM CHLORIDE 0.9% 1000ML 1,000 ML IV SCH ×3 (05:42→22:40)
[2023-01-19] MEDS: METRONIDAZOLE 500MG/NS 100ML 100 ML IV SCH ×4 (05:42→23:09)
[2023-01-19] MEDS: METOCLOPRAMIDE HCL 10 MG/2ML VIAL IV SCH ×4 (05:42→23:09)
[2023-01-19] MEDS: CLONAZEPAM 0.5 MG TAB PO SCH ×4 (08:14→20:28)
[2023-01-19] MEDS ORDERED: METHYLPREDNISOLONE SOD SUCC 125 MG/2ML VIAL IV SCH (09:00)
[2023-01-19] MEDS: ONDANSETRON HCL INJ 2MG/ML 2ML 2 MG/ML VIAL IV PRN ×2 (11:24→20:29)
[2023-01-19] MEDS: LEVALBUTEROL HCL SOLN NEBU 1.25 MG/3 ML NEB INH SCH ×2 (15:00→19:05)
[2023-01-19] MEDS: DICYCLOMINE HCL 20 MG TAB PO SCH ×2 (16:26→20:28)
[2023-01-19 16:59] LABS: ABG HCO3 -1 mmol/L (22-26); ABG PCO2 34 mmHg (35-45); ABG PH 7.45 (7.35-7.45); ABG PO2 66 mmHg (80-105); ABG TCO2 24
[2023-01-19] MEDS: IPRATROPIUM BROMIDE 0.02% 2.5 ML NEB NEB SCH (19:05)
[2023-01-19 20:13] LABS: CLARITY,URINE CLEAR (CLEAR); COLOR,URINE YELLOW (YELLOW); KETONES,URINE NEGATIVE (NEGATIVE); LEUKOCYTE ESTERASE ,URINE NEGATIVE (NEGATIVE); NITRITE,URINE NEGATIVE (NEGATIVE); PROTEIN,URINE DIPSTICK NEGATIVE (NEGATIVE); URINE UROBILINOGEN 0.2 mg/dL (0.2 - 1)
[2023-01-19 20:22] LABS: RBC,URINE 0-5 /HPF (0-5); WBC,URINE (MAN) 0-5 /HPF (0-5)
[2023-01-19] MEDS: METHYLPREDNISOLONE SOD SUCC 40 MG/ML VIAL 1ML IV SCH (20:28)
[2023-01-20] VITALS: BP 123/60
[2023-01-20] MEDS: LEVOFLOXACIN 500MG/D5W 100ML 100 ML IV SCH (00:11)
[2023-01-20] MEDS: Morphine 4mg INJECTION 4 MG/ML INJ IV PRN ×6 (00:41→22:29)
[2023-01-20] MEDS: LEVALBUTEROL HCL SOLN NEBU 1.25 MG/3 ML NEB INH SCH ×4 (01:15→20:20)
[2023-01-20] MEDS: IPRATROPIUM BROMIDE 0.02% 2.5 ML NEB NEB SCH ×4 (01:15→20:20)
[2023-01-20 04:00] VITALS: BP 126/70
[2023-01-20] MEDS: ONDANSETRON HCL INJ 2MG/ML 2ML 2 MG/ML VIAL IV PRN ×2 (04:31→08:46)
[2023-01-20 05:37] LABS: BASOPHILS % 0.2 % (0.0-1.0); HEMATOCRIT 31.2 % (34.2-44.1); HEMOGLOBIN 8.8 g/dL (12.0-16.0); LYMPHOCYTES # (AUTO) 0.8 (1.0-3.2); LYMPHOCYTES % 13.3 % (18.0-39.1); MEAN CORPUSCULAR HEMOGLOBIN 24.2 pg (28-32); MEAN CORPUSCULAR HGB CONC 28.2 g/dL (31-35); MONOCYTES # (AUTO) 0.3 (0.2-0.8); MONOCYTES % 5.5 % (4.4-11.3); NEUTROPHILS # (AUTO) 4.9 (2.1-6.9); NEUTROPHILS % 79.5 % (38.7-80.0); PLATELET COUNT 169 x10e3/uL (140-360); RED BLOOD COUNT 3.63 x10e6/uL (3.6-5.1); RED CELL DISTRIBUTION WIDTH 17.7 % (11.7-14.4)
[2023-01-20 06:01] LABS: ANION GAP 12.7 mmol/L (8-16); CALCIUM 8.8 mg/dL (8.4-10.2); CREATININE, SERUM 0.71 mg/dL (0.57-1.11); POTASSIUM 4.7 mmol/L (3.5-5.1)
[2023-01-20] MEDS: METRONIDAZOLE 500MG/NS 100ML 100 ML IV SCH ×3 (06:06→18:00)
[2023-01-20] MEDS: METOCLOPRAMIDE HCL 10 MG/2ML VIAL IV SCH ×3 (06:06→18:00)
[2023-01-20] MEDS: METHYLPREDNISOLONE SOD SUCC 40 MG/ML VIAL 1ML IV SCH ×2 (08:46→21:02)
[2023-01-20 08:51] VITALS: BP 114/56
[2023-01-20] MEDS: CLONAZEPAM 0.5 MG TAB PO SCH ×6 (08:59→21:10)
[2023-01-20] MEDS: DICYCLOMINE HCL 20 MG TAB PO SCH ×4 (09:00→21:02)
[2023-01-20] MEDS ORDERED: MAALOX/LIDOCAINE/BENADRYL/NYST 30 ML BTL PO ONE (09:00)
[2023-01-20] MEDS ORDERED: MAALOX/LIDOCAINE/BENADRYL/NYST 30 ML BTL PO PRN (09:00)
[2023-01-20] MEDS ORDERED: DONNATAL/LIDOCAINE/MAALOX 30 ML SUSP PO ONE (09:15)
[2023-01-20] MEDS ORDERED: DONNATAL/LIDOCAINE/MAALOX 30 ML SUSP PO PRN (09:30)
[2023-01-20 10:00] VITALS: BP 114/56
[2023-01-20] MEDS ORDERED: ALBUTEROL SULF 0.083% NEB SOLN 3 ML NEB ONE (10:49)
[2023-01-20] MEDS ORDERED: BENZOCAINE/TETRACAINE/BUTAMBEN AERO SPRAY 56 GM CAN ONE (10:54)
[2023-01-20] MEDS ORDERED: FLUCONAZOLE 200 MG/100 ML 100 ML IV ONE (11:32)
[2023-01-20] MEDS: FLUCONAZOLE 200 MG/100 ML 100 ML IV SCH (11:45)
[2023-01-20] MEDS ORDERED: PROPOFOL IV EMULSION 10 MG/ML 20 ML VIAL ONE (13:23)
[2023-01-20] MEDS ORDERED: ETOMIDATE 2 MG/ML 10 ML INJ IV ONE (13:23)
[2023-01-20] MEDS ORDERED: POVIDONE IODINE 0.05% 0.05 % ML PO ONE (13:23)
[2023-01-20] MEDS ORDERED: ONDANSETRON HCL INJ 2MG/ML 2ML 2 MG/ML VIAL ONE (13:23)
[2023-01-20] MEDS ORDERED: LIDOCAINE HCL 2% LOCAL INJ 5 ML SDV VIAL INJ ONE (13:23)
[2023-01-20] MEDS: SODIUM CHLORIDE 0.9% 1000ML 1,000 ML IV SCH (13:37)
[2023-01-20 13:49] LABS: % IRON SATURATION 7 % (15-50); IRON 28 ug/dL (50-170); TOTAL IRON BINDING CAPACITY 381 ug/dL (261-478); TRANSFERRIN 272 mg/dL (180-382)
[2023-01-20 17:06] VITALS: BP 141/56
[2023-01-20] MEDS ORDERED: CEPACOL SORE THROAT LOZENGES PO PRN (19:45)
[2023-01-20 20:00] VITALS: BP 124/52
[2023-01-21] MEDS: METRONIDAZOLE 500MG/NS 100ML 100 ML IV SCH ×2 (00:08→05:02)
[2023-01-21] MEDS: LEVOFLOXACIN 500MG/D5W 100ML 100 ML IV SCH (00:09)
[2023-01-21] MEDS: METOCLOPRAMIDE HCL 10 MG/2ML VIAL IV SCH ×2 (00:09→05:02)
[2023-01-21 00:31] VITALS: BP 143/67
[2023-01-21] MEDS: IPRATROPIUM BROMIDE 0.02% 2.5 ML NEB NEB SCH ×3 (01:10→14:00)
[2023-01-21] MEDS: SODIUM CHLORIDE 0.9% 1000ML 1,000 ML IV SCH (01:10)
[2023-01-21] MEDS: LEVALBUTEROL HCL SOLN NEBU 1.25 MG/3 ML NEB INH SCH ×3 (01:10→14:00)
[2023-01-21] MEDS: Morphine 4mg INJECTION 4 MG/ML INJ IV PRN ×3 (02:41→12:13)
[2023-01-21 04:00] VITALS: BP 125/58
[2023-01-21 08:00] VITALS: BP_SYST 127; BP_SYST 184; BP_DIAS 52; BP_DIAS 78
[2023-01-21] MEDS ORDERED: SODIUM CHLORIDE 0.9% 250ML 250 ML ONE (08:38)
[2023-01-21] MEDS: DICYCLOMINE HCL 20 MG TAB PO SCH ×2 (08:41→13:00)
[2023-01-21] MEDS: METHYLPREDNISOLONE SOD SUCC 40 MG/ML VIAL 1ML IV SCH (08:41)
[2023-01-21] MEDS: CLONAZEPAM 0.5 MG TAB PO SCH ×2 (08:43→12:18)
[2023-01-21 08:56] VITALS: BP 125/58
[2023-01-21] MEDS ORDERED: DOXYCYCLINE HYCLATE TABLET 100 MG TAB PO SCH (09:00)
[2023-01-21] MEDS ORDERED: METOCLOPRAMIDE HCL 10 MG TAB PO SCH (11:30)
[2023-01-21 11:54] VITALS: BP 120/81
[2023-01-21] MEDS: FLUCONAZOLE 200 MG/100 ML 100 ML IV SCH (12:00)
== END 2023-01-21 15:35 | disposition left against medical advice (07) | DRG 190 ==
LOC: ER 15:13 → ERHOLD 16:44 → ER 19:35 → MED/SURG 20:34 → OBSVTOIN 01-19 08:19
PROVIDERS: ADMIT Internal Medicine; ATTEND Internal Medicine
PROC: 0DB68ZX Excision of Stomach, Via Natural or Artificial Opening Endoscopic, Diagnostic (ICD-10-PCS; principal; 2023-01-20 11:13)
PROC: 0DB78ZX Excision of Stomach, Pylorus, Via Natural or Artificial Opening Endoscopic, Diagnostic (ICD-10-PCS; 2023-01-20 11:13)
DX: J44.0 Chronic obstructive pulmonary disease with (acute) lower respiratory infection (principal); J18.9 Pneumonia, unspecified organism; K51.90 Ulcerative colitis, unspecified, without complications; J44.1 Chronic obstructive pulmonary disease with (acute) exacerbation; G89.29 Other chronic pain; E03.9 Hypothyroidism, unspecified; F32.9 Major depressive disorder, single episode, unspecified; F41.9 Anxiety disorder, unspecified; E78.5 Hyperlipidemia, unspecified; F17.210 Nicotine dependence, cigarettes, uncomplicated; K44.9 Diaphragmatic hernia without obstruction or gangrene; Z20.822 Contact with and (suspected) exposure to COVID-19
CPT/HCPCS: 36415; 36600; 43235; 43239; 71045; 71250; 74019; 80048; 80053; 81001; 82805; 83540; 84466; 85025; 85610; 87106; 87205; 88304; 88305; 88312; 88342; 94799; 96361; 99252; 99284; G0378; J1450; J1956; J2001; J2270; J2405; J2765; J2920; J2930; J7030; J7050

== ENCOUNTER 2023-01-24 10:06 | Inpatient (IN) | payer MEDICARE ==
[~2023-01-24] VITALS: Ht 147.3 cm; Wt 56.7 kg
[~2023-01-24 10:06] MED LIST changes: +BUMETANIDE2 MG PO; +LEVALBUTEROL; +MORPHINE SULFAT15 MG PO; +STOOL SOFT PO; +STOOL SOFTNER PO
[2023-01-24] MEDS ORDERED: ALBUTEROL/IPRATROPIUM 3 ML NEB NEB STA (10:12)
[2023-01-24] MEDS ORDERED: ASPIRIN 81 MG CHEW TAB PO ONE (10:15)
[2023-01-24] MEDS ORDERED: ALBUTEROL SULF 0.083% NEB SOLN 3 ML NEB ONE (10:48)
[2023-01-24 10:57] LABS: BASOPHILS # (AUTO) 0.1 (0.0-0.1); BASOPHILS % 0.5 % (0.0-1.0); EOSINOPHILS # (AUTO) 0.1 (0.0-0.4); EOSINOPHILS % 1.2 % (0.0-6.0); HEMOGLOBIN 11.2 g/dL (12.0-16.0); LYMPHOCYTES # (AUTO) 1.5 (1.0-3.2); LYMPHOCYTES % 15.9 % (18.0-39.1); MEAN CORPUSCULAR HEMOGLOBIN 24.7 pg (28-32); MEAN CORPUSCULAR HGB CONC 29.5 g/dL (31-35); MEAN CORPUSCULAR VOLUME 83.7 fL (81-99); MONOCYTES # (AUTO) 0.6 (0.2-0.8); MONOCYTES % 6.8 % (4.4-11.3); NEUTROPHILS # (AUTO) 6.9 (2.1-6.9); NEUTROPHILS % 74.3 % (38.7-80.0); PLATELET COUNT 225 x10e3/uL (140-360); RED BLOOD COUNT 4.54 x10e6/uL (3.6-5.1); RED CELL DISTRIBUTION WIDTH 18.1 % (11.7-14.4)
[2023-01-24 11:16] LABS: ALANINE AMINOTRANSFERASE 23 IU/L (0-55); ALBUMIN 3.2 g/dL (3.5-5.0); ALBUMIN/GLOBULIN RATIO 0.8 (0.8-2.0); ALKALINE PHOSPHATASE 105 IU/L (40-150); ANION GAP 17.7 mmol/L (8-16); BLOOD UREA NITROGEN 7 mg/dL (7-26); BUN/CREATININE RATIO 10 (6-25); CALCIUM 8.9 mg/dL (8.4-10.2); CARBON DIOXIDE 27 mmol/L (22-29); CHLORIDE 98 mmol/L (98-107); CREATINE KINASE 51 IU/L (29-168); CREATININE, SERUM 0.73 mg/dL (0.57-1.11); GLUCOSE 138 mg/dL (74-118); POTASSIUM 3.7 mmol/L (3.5-5.1); SODIUM 139 mmol/L (136-145)
[2023-01-24] MEDS ORDERED: IPRATROPIUM BROMIDE 0.02% 2.5 ML NEB NEB ONE (11:30)
[2023-01-24] MEDS ORDERED: Morphine 4mg INJECTION 4 MG/ML INJ IM ONE (11:30)
[2023-01-24] MEDS ORDERED: ALBUTEROL SULF 0.083% NEB SOLN 3 ML NEB NEB ONE (11:30)
[2023-01-24 11:45] LABS: CLARITY,URINE CLEAR (CLEAR); COLOR,URINE YELLOW (YELLOW); LEUKOCYTE ESTERASE ,URINE NEGATIVE (NEGATIVE); NITRITE,URINE NEGATIVE (NEGATIVE)
[2023-01-24 11:46] LABS: BACTERIA,URINE FEW /HPF; EPITHELIAL CELLS,URINE FEW /LPF; KETONES,URINE NEGATIVE (NEGATIVE); PROTEIN,URINE DIPSTICK NEGATIVE (NEGATIVE); RBC,URINE 0-5 /HPF (0-5); URINE UROBILINOGEN 0.2 mg/dL (0.2 - 1); WBC,URINE (MAN) 0-5 /HPF (0-5)
[2023-01-24 16:01] LABS: CREATINE KINASE MB 6.5 ng/mL (0-5.0)
[2023-01-24] MEDS ORDERED: TRAMADOL HCL 50 MG TAB PO PRN (17:00)
[2023-01-24] MEDS ORDERED: NYSTATIN 15 GM POWDER UD BTL TOP PRN (17:00)
[2023-01-24] MEDS ORDERED: ACETAMINOPHEN 325 MG TAB PO PRN (17:00)
[2023-01-24 17:41] VITALS: BP 138/68
[2023-01-24] MEDS ORDERED: IPRATROPIUM BROMIDE 0.02% 2.5 ML NEB NEB SCH (19:00)
[2023-01-24] MEDS ORDERED: ALBUTEROL SULF 0.083% NEB SOLN 3 ML NEB NEB SCH (19:00)
[2023-01-24 20:58] VITALS: BP 125/73
[2023-01-24] MEDS ORDERED: MAALOX/LIDOCAINE/BENADRYL/NYST 30 ML BTL PO ONE (21:45)
[2023-01-24] MEDS ORDERED: HYDRALAZINE HCL 20 MG/ML VIAL IV PRN (21:45)
[2023-01-24] MEDS ORDERED: LEVALBUTEROL HCL SOLN NEBU 1.25 MG/3 ML NEB INH PRN (21:45)
[2023-01-24] MEDS ORDERED: FLUCONAZOLE 100 MG TAB PO ONE (21:45)
[2023-01-24] MEDS: NYSTATIN SUSPENSION 5 ML UDC PO SCH (22:00)
[2023-01-24] MEDS: MORPHINE SULFATE ER 15 MG TAB PO PRN (22:03)
[2023-01-24] MEDS: DICYCLOMINE HCL 10 MG CAP PO SCH (22:03)
[2023-01-24] MEDS: ONDANSETRON HCL INJ 2MG/ML 2ML 2 MG/ML VIAL IV PRN (22:51)
[2023-01-24 23:40] LABS: CREATINE KINASE MB 4.5 ng/mL (0-5.0)
[2023-01-25] VITALS (8 sets, daily range): BP systolic 100–136; BP diastolic 53–70
[2023-01-25] MEDS: LEVALBUTEROL HCL SOLN NEBU 1.25 MG/3 ML NEB INH SCH ×5 (01:05→19:35)
[2023-01-25] MEDS: NYSTATIN SUSPENSION 5 ML UDC PO SCH ×4 (02:08→21:09)
[2023-01-25] MEDS: MORPHINE SULFATE ER 15 MG TAB PO PRN (03:49)
[2023-01-25] MEDS: CLONAZEPAM 0.5 MG TAB PO PRN ×3 (03:50→22:48)
[2023-01-25 06:08] LABS: BASOPHILS # (AUTO) 0.1 (0.0-0.1); BASOPHILS % 0.6 % (0.0-1.0); EOSINOPHILS # (AUTO) 0.1 (0.0-0.4); EOSINOPHILS % 1.3 % (0.0-6.0); HEMATOCRIT 34.7 % (34.2-44.1); HEMOGLOBIN 10.1 g/dL (12.0-16.0); LYMPHOCYTES # (AUTO) 1.9 (1.0-3.2); MEAN CORPUSCULAR HEMOGLOBIN 24.6 pg (28-32); MEAN CORPUSCULAR HGB CONC 29.1 g/dL (31-35); MEAN CORPUSCULAR VOLUME 84.4 fL (81-99); MONOCYTES # (AUTO) 0.7 (0.2-0.8); MONOCYTES % 8.3 % (4.4-11.3); NEUTROPHILS % 67.6 % (38.7-80.0); PLATELET COUNT 234 x10e3/uL (140-360); RED BLOOD COUNT 4.11 x10e6/uL (3.6-5.1)
[2023-01-25 06:32] LABS: ANION GAP 15.9 mmol/L (8-16); CALCIUM 8.9 mg/dL (8.4-10.2); CREATININE, SERUM 0.72 mg/dL (0.57-1.11); POTASSIUM 3.9 mmol/L (3.5-5.1)
[2023-01-25 06:55] LABS: CREATINE KINASE 35 IU/L (29-168)
[2023-01-25] MEDS: LEVOTHYROXINE SODIUM 112 MCG TAB PO SCH (07:09)
[2023-01-25] MEDS: DICYCLOMINE HCL 10 MG CAP PO SCH ×4 (08:54→21:04)
[2023-01-25] MEDS: MESALAMINE 400 MG CAP PO SCH ×2 (08:54→17:40)
[2023-01-25] MEDS: MAALOX/LIDOCAINE/BENADRYL/NYST 30 ML BTL PO SCH ×3 (08:54→21:00)
[2023-01-25] MEDS: FLUCONAZOLE 100 MG TAB PO SCH (08:55)
[2023-01-25] MEDS: NYSTATIN/TRIAMCINOLONE 15 GM CR TOP SCH ×2 (09:00→17:00)
[2023-01-25] MEDS ORDERED: MAALOX/LIDOCAINE/BENADRYL/NYST 30 ML BTL PO PRN (09:15)
[2023-01-25] MEDS ORDERED: POLYETHYLENE GLYCOL 3350 17 GM PACK PO PRN (09:45)
[2023-01-25] MEDS ORDERED: BUMETANIDE 1 MG TAB PO SCH (10:00)
[2023-01-25] MEDS ORDERED: MAALOX/LIDOCAINE/BENADRYL/NYST 30 ML BTL PO ONE (10:00)
[2023-01-25] MEDS: MORPHINE SULFATE ORAL SOLN 10 MG/5 ML UDC GT PRN (10:45)
[2023-01-25] MEDS: MORPHINE SULFATE IR 15 MG TABLET PO SCH ×4 (12:34→21:04)
[2023-01-25] MEDS: SUCRALFATE 1 GM TAB PO SCH ×4 (13:00→21:04)
[2023-01-25] MEDS: BISACODYL 5 MG TAB EC PO PRN (14:22)
[2023-01-25] MEDS ORDERED: BUPROPION HCL 400 MG PO SCH (17:00)
[2023-01-25] MEDS: PANTOPRAZOLE SOD 40 MG TABEC PO SCH (17:40)
[2023-01-25] MEDS: DOCUSATE SODIUM 100 MG CAP PO SCH (17:40)
[2023-01-25] MEDS: BUPROPION HCL 100 MG TAB PO SCH (17:48)
[2023-01-25] MEDS: HEPARIN SOD (PORCINE) 5,000 UNIT/ML VIAL SC SCH ×2 (21:00→21:07)
[2023-01-25] MEDS: ATORVASTATIN 40 MG TAB PO SCH (21:04)
[2023-01-25] MEDS: ONDANSETRON HCL INJ 2MG/ML 2ML 2 MG/ML VIAL IV PRN (23:08)
[2023-01-26 00:29] VITALS: BP 110/68
[2023-01-26] MEDS: MORPHINE SULFATE IR 15 MG TABLET PO SCH ×7 (00:29→23:15)
[2023-01-26] MEDS: LEVALBUTEROL HCL SOLN NEBU 1.25 MG/3 ML NEB INH SCH ×4 (01:10→19:30)
[2023-01-26] MEDS: BISACODYL 5 MG TAB EC PO PRN (03:50)
[2023-01-26] MEDS: MORPHINE SULFATE ORAL SOLN 10 MG/5 ML UDC GT PRN (03:51)
[2023-01-26] MEDS: NYSTATIN SUSPENSION 5 ML UDC PO SCH ×2 (05:57→12:20)
[2023-01-26] MEDS: LEVOTHYROXINE SODIUM 112 MCG TAB PO SCH (05:58)
[2023-01-26 06:17] LABS: BASOPHILS % 0.4 % (0.0-1.0); EOSINOPHILS # (AUTO) 0.1 (0.0-0.4); EOSINOPHILS % 1.4 % (0.0-6.0); HEMATOCRIT 31.8 % (34.2-44.1); HEMOGLOBIN 9.5 g/dL (12.0-16.0); LYMPHOCYTES # (AUTO) 1.5 (1.0-3.2); LYMPHOCYTES % 18.3 % (18.0-39.1); MEAN CORPUSCULAR HEMOGLOBIN 24.7 pg (28-32); MEAN CORPUSCULAR HGB CONC 29.9 g/dL (31-35); MEAN CORPUSCULAR VOLUME 82.6 fL (81-99); MONOCYTES # (AUTO) 0.7 (0.2-0.8); MONOCYTES % 7.9 % (4.4-11.3); PLATELET COUNT 178 x10e3/uL (140-360); RED BLOOD COUNT 3.85 x10e6/uL (3.6-5.1)
[2023-01-26 06:39] LABS: ANION GAP 13.8 mmol/L (8-16); CALCIUM 8.7 mg/dL (8.4-10.2); CREATININE, SERUM 0.76 mg/dL (0.57-1.11); POTASSIUM 3.8 mmol/L (3.5-5.1)
[2023-01-26 08:30] VITALS: BP 121/56
[2023-01-26] MEDS: SUCRALFATE 1 GM TAB PO SCH ×4 (09:00→20:14)
[2023-01-26] MEDS: PANTOPRAZOLE SOD 40 MG TABEC PO SCH ×2 (09:00→15:50)
[2023-01-26] MEDS: HEPARIN SOD (PORCINE) 5,000 UNIT/ML VIAL SC SCH ×2 (09:00→20:26)
[2023-01-26] MEDS: MESALAMINE 400 MG CAP PO SCH ×2 (09:00→16:01)
[2023-01-26] MEDS ORDERED: BUMETANIDE 1 MG TAB PO SCH (09:00)
[2023-01-26] MEDS: DICYCLOMINE HCL 10 MG CAP PO SCH ×4 (09:51→20:14)
[2023-01-26] MEDS: FLUCONAZOLE 100 MG TAB PO SCH (09:51)
[2023-01-26] MEDS: DOCUSATE SODIUM 100 MG CAP PO SCH ×2 (09:52→15:56)
[2023-01-26] MEDS: BUPROPION HCL 100 MG TAB PO SCH ×2 (09:52→15:50)
[2023-01-26] MEDS: MAALOX/LIDOCAINE/BENADRYL/NYST 30 ML BTL PO SCH ×3 (09:54→20:17)
[2023-01-26] MEDS: CLONAZEPAM 0.5 MG TAB PO PRN ×3 (11:28→23:55)
[2023-01-26] MEDS: NYSTATIN/TRIAMCINOLONE 15 GM CR TOP SCH ×2 (11:30→16:06)
[2023-01-26 12:13] VITALS: BP 131/82
[2023-01-26] MEDS ORDERED: BISACODYL 5 MG TAB EC PO PRN (13:15)
[2023-01-26] MEDS ORDERED: BISACODYL 5 MG TAB EC PO ONE (14:00)
[2023-01-26] MEDS ORDERED: FUROSEMIDE INJ 10 MG/ML 2 ML VIAL IV ONE (14:00)
[2023-01-26 16:26] VITALS: BP 123/63
[2023-01-26] MEDS: ATORVASTATIN 40 MG TAB PO SCH (20:15)
[2023-01-26] MEDS: MAGNESIUM HYDROXIDE 30 ML UDC PO PRN (20:15)
[2023-01-26 20:45] VITALS: BP 120/54
[2023-01-27] VITALS (8 sets, daily range): BP systolic 114–138; BP diastolic 52–75
[2023-01-27] MEDS: LEVALBUTEROL HCL SOLN NEBU 1.25 MG/3 ML NEB INH SCH ×4 (01:00→19:35)
[2023-01-27] MEDS: MORPHINE SULFATE IR 15 MG TABLET PO SCH ×7 (03:24→20:45)
[2023-01-27] MEDS: CLONAZEPAM 0.5 MG TAB PO PRN ×4 (05:29→23:06)
[2023-01-27] MEDS: LEVOTHYROXINE SODIUM 112 MCG TAB PO SCH (05:32)
[2023-01-27 06:36] LABS: ANION GAP 13.8 mmol/L (8-16); CALCIUM 9.5 mg/dL (8.4-10.2); CREATININE, SERUM 0.76 mg/dL (0.57-1.11); POTASSIUM 3.8 mmol/L (3.5-5.1)
[2023-01-27 06:55] LABS: MAGNESIUM 1.9 MG/DL (1.3-2.1); PHOSPHORUS 3.7 MG/DL (2.3-4.7)
[2023-01-27] MEDS ORDERED: BISACODYL 10 MG SUPP PR PRN ×2 (08:30→09:15)
[2023-01-27] MEDS: HEPARIN SOD (PORCINE) 5,000 UNIT/ML VIAL SC SCH ×3 (09:00→21:00)
[2023-01-27] MEDS ORDERED: FUROSEMIDE INJ 10 MG/ML 4 ML VIAL IV SCH (09:00)
[2023-01-27] MEDS ORDERED: MINERAL OIL 132 ML BTL PR PRN (09:15)
[2023-01-27] MEDS: SUCRALFATE 1 GM TAB PO SCH ×4 (09:25→18:09)
[2023-01-27] MEDS: BISACODYL 5 MG TAB EC PO SCH ×2 (09:26→16:44)
[2023-01-27] MEDS: POTASSIUM CHLORIDE 10MEQ EA PO SCH ×2 (09:28→16:43)
[2023-01-27] MEDS: POLYETHYLENE GLYCOL 3350 17 GM PACK PO SCH ×2 (09:28→16:46)
[2023-01-27] MEDS: MESALAMINE 400 MG CAP PO SCH ×2 (09:29→16:43)
[2023-01-27] MEDS: DOCUSATE SODIUM 100 MG CAP PO SCH ×2 (09:29→16:44)
[2023-01-27] MEDS: MAALOX/LIDOCAINE/BENADRYL/NYST 30 ML BTL PO SCH ×3 (09:29→20:44)
[2023-01-27] MEDS: DICYCLOMINE HCL 10 MG CAP PO SCH ×4 (09:29→20:45)
[2023-01-27] MEDS: BUPROPION HCL 100 MG TAB PO SCH ×2 (09:29→16:44)
[2023-01-27] MEDS: FUROSEMIDE INJ 10 MG/ML 4 ML VIAL IV SCH ×2 (09:30→12:17)
[2023-01-27] MEDS: NYSTATIN/TRIAMCINOLONE 15 GM CR TOP SCH ×2 (09:31→16:44)
[2023-01-27] MEDS: FLUCONAZOLE 100 MG/NS 50 ML 50 ML IV SCH (09:45)
[2023-01-27] MEDS: ONDANSETRON HCL INJ 2MG/ML 2ML 2 MG/ML VIAL IV PRN (14:31)
[2023-01-27] MEDS: ATORVASTATIN 40 MG TAB PO SCH (20:44)
[2023-01-28] VITALS (8 sets, daily range): BP systolic 102–122; BP diastolic 57–97
[2023-01-28] MEDS: LEVALBUTEROL HCL SOLN NEBU 1.25 MG/3 ML NEB INH SCH ×4 (00:35→19:43)
[2023-01-28] MEDS ORDERED: BISACODYL 5 MG TAB EC PO ONE (01:00)
[2023-01-28] MEDS: MORPHINE SULFATE IR 15 MG TABLET PO SCH ×7 (01:11→20:43)
[2023-01-28] MEDS: LEVOTHYROXINE SODIUM 112 MCG TAB PO SCH (05:07)
[2023-01-28] MEDS: CLONAZEPAM 0.5 MG TAB PO PRN ×3 (05:07→20:42)
[2023-01-28 07:15] LABS: ANION GAP 14.8 mmol/L (8-16); CALCIUM 9.1 mg/dL (8.4-10.2); CREATININE, SERUM 0.74 mg/dL (0.57-1.11); POTASSIUM 3.8 mmol/L (3.5-5.1)
[2023-01-28 07:16] LABS: MAGNESIUM 1.8 MG/DL (1.3-2.1); PHOSPHORUS 3.9 MG/DL (2.3-4.7)
[2023-01-28] MEDS: POLYETHYLENE GLYCOL 3350 17 GM PACK PO SCH ×2 (09:00→17:00)
[2023-01-28] MEDS: HEPARIN SOD (PORCINE) 5,000 UNIT/ML VIAL SC SCH ×2 (09:00→20:45)
[2023-01-28] MEDS: MESALAMINE 400 MG CAP PO SCH ×2 (09:27→18:09)
[2023-01-28] MEDS: DOCUSATE SODIUM 100 MG CAP PO SCH ×2 (09:28→18:08)
[2023-01-28] MEDS: POTASSIUM CHLORIDE 10MEQ EA PO SCH ×2 (09:28→18:08)
[2023-01-28] MEDS: SUCRALFATE 1 GM TAB PO SCH ×4 (09:28→20:41)
[2023-01-28] MEDS: BISACODYL 5 MG TAB EC PO SCH ×2 (09:28→18:08)
[2023-01-28] MEDS: BUPROPION HCL 100 MG TAB PO SCH ×2 (09:29→18:09)
[2023-01-28] MEDS: MAALOX/LIDOCAINE/BENADRYL/NYST 30 ML BTL PO SCH ×3 (09:29→20:44)
[2023-01-28] MEDS: FUROSEMIDE INJ 10 MG/ML 4 ML VIAL IV SCH ×2 (09:29→13:00)
[2023-01-28] MEDS: NYSTATIN/TRIAMCINOLONE 15 GM CR TOP SCH ×2 (09:30→18:09)
[2023-01-28] MEDS: PEG (High)/E-LYTE SOLN 4,000 ML BTL PO ONE ×2 (09:30→14:52)
[2023-01-28] MEDS: DICYCLOMINE HCL 10 MG CAP PO SCH ×4 (09:34→20:41)
[2023-01-28] MEDS: FLUCONAZOLE 100 MG/NS 50 ML 50 ML IV SCH (10:53)
[2023-01-28] MEDS: ONDANSETRON HCL INJ 2MG/ML 2ML 2 MG/ML VIAL IV PRN (13:09)
[2023-01-28] MEDS ORDERED: PEG (High)/E-LYTE SOLN 4,000 ML BTL PO ONE (16:00)
[2023-01-28] MEDS: ATORVASTATIN 40 MG TAB PO SCH (20:41)
[2023-01-29] VITALS (9 sets, daily range): BP systolic 90–119; BP diastolic 64–97
[2023-01-29] MEDS: MORPHINE SULFATE IR 15 MG TABLET PO SCH ×6 (00:05→21:33)
[2023-01-29] MEDS: LEVALBUTEROL HCL SOLN NEBU 1.25 MG/3 ML NEB INH SCH ×4 (00:40→19:40)
[2023-01-29] MEDS: CLONAZEPAM 0.5 MG TAB PO PRN ×3 (04:01→20:49)
[2023-01-29] MEDS: ONDANSETRON HCL INJ 2MG/ML 2ML 2 MG/ML VIAL IV PRN ×3 (04:09→15:40)
[2023-01-29] MEDS: LEVOTHYROXINE SODIUM 112 MCG TAB PO SCH (06:17)
[2023-01-29] MEDS: FUROSEMIDE INJ 10 MG/ML 4 ML VIAL IV SCH ×2 (08:56→13:20)
[2023-01-29] MEDS: DICYCLOMINE HCL 10 MG CAP PO SCH ×4 (08:57→20:48)
[2023-01-29] MEDS: DOCUSATE SODIUM 100 MG CAP PO SCH ×2 (08:57→15:48)
[2023-01-29] MEDS: POLYETHYLENE GLYCOL 3350 17 GM PACK PO SCH ×2 (08:57→15:47)
[2023-01-29] MEDS: BUPROPION HCL 100 MG TAB PO SCH ×2 (08:58→15:46)
[2023-01-29] MEDS: POTASSIUM CHLORIDE 10MEQ EA PO SCH ×2 (08:58→15:46)
[2023-01-29] MEDS: BISACODYL 5 MG TAB EC PO SCH ×2 (08:58→15:48)
[2023-01-29] MEDS: SUCRALFATE 1 GM TAB PO SCH ×4 (08:58→20:49)
[2023-01-29] MEDS: HEPARIN SOD (PORCINE) 5,000 UNIT/ML VIAL SC SCH ×2 (09:00→20:58)
[2023-01-29] MEDS: MAALOX/LIDOCAINE/BENADRYL/NYST 30 ML BTL PO SCH ×3 (09:00→20:49)
[2023-01-29] MEDS: NYSTATIN/TRIAMCINOLONE 15 GM CR TOP SCH ×2 (09:00→15:48)
[2023-01-29] MEDS: MAGNESIUM HYDROXIDE 30 ML UDC PO PRN (09:42)
[2023-01-29] MEDS: FLUCONAZOLE 100 MG/NS 50 ML 50 ML IV SCH (09:46)
[2023-01-29] MEDS: MESALAMINE 400 MG CAP PO SCH ×2 (10:51→15:47)
[2023-01-29] MEDS: FLUTICASONE PROPIONATE NASAL SPRAY NS SCH (15:48)
[2023-01-29] MEDS: ATORVASTATIN 40 MG TAB PO SCH (20:49)
[2023-01-30] VITALS (7 sets, daily range): BP systolic 96–116; BP diastolic 55–74
[2023-01-30] MEDS: LEVALBUTEROL HCL SOLN NEBU 1.25 MG/3 ML NEB INH SCH ×4 (00:25→20:20)
[2023-01-30] MEDS: MORPHINE SULFATE IR 15 MG TABLET PO SCH ×4 (00:33→19:22)
[2023-01-30] MEDS: ONDANSETRON HCL INJ 2MG/ML 2ML 2 MG/ML VIAL IV PRN ×3 (01:14→23:36)
[2023-01-30] MEDS ORDERED: BISACODYL 5 MG TAB EC PO ONE ×3 (03:00→04:00)
[2023-01-30] MEDS: CLONAZEPAM 0.5 MG TAB PO PRN (05:49)
[2023-01-30] MEDS: LEVOTHYROXINE SODIUM 112 MCG TAB PO SCH (05:49)
[2023-01-30] MEDS ORDERED: CITRATE OF MAGNESIA 300ML BOTTLE PO ONE ×2 (07:00→09:00)
[2023-01-30] MEDS: MESALAMINE 400 MG CAP PO SCH ×2 (08:55→15:34)
[2023-01-30] MEDS: DOCUSATE SODIUM 100 MG CAP PO SCH ×2 (08:55→15:34)
[2023-01-30] MEDS: DICYCLOMINE HCL 10 MG CAP PO SCH ×4 (08:56→22:41)
[2023-01-30] MEDS: BUPROPION HCL 100 MG TAB PO SCH ×2 (08:56→15:36)
[2023-01-30] MEDS: SUCRALFATE 1 GM TAB PO SCH ×4 (08:56→22:41)
[2023-01-30] MEDS: BISACODYL 5 MG TAB EC PO SCH ×2 (08:56→15:34)
[2023-01-30] MEDS: HEPARIN SOD (PORCINE) 5,000 UNIT/ML VIAL SC SCH ×2 (08:57→22:43)
[2023-01-30] MEDS: FUROSEMIDE INJ 10 MG/ML 4 ML VIAL IV SCH ×2 (08:57→15:45)
[2023-01-30] MEDS: MAALOX/LIDOCAINE/BENADRYL/NYST 30 ML BTL PO SCH ×3 (08:58→21:00)
[2023-01-30] MEDS: POTASSIUM CHLORIDE 10MEQ EA PO SCH ×2 (08:58→15:30)
[2023-01-30] MEDS: POLYETHYLENE GLYCOL 3350 17 GM PACK PO SCH ×2 (09:00→15:31)
[2023-01-30] MEDS: NYSTATIN/TRIAMCINOLONE 15 GM CR TOP SCH ×2 (09:00→15:47)
[2023-01-30] MEDS: FLUTICASONE PROPIONATE NASAL SPRAY NS SCH (09:12)
[2023-01-30] MEDS: FLUCONAZOLE 100 MG/NS 50 ML 50 ML IV SCH (10:00)
[2023-01-30] MEDS ORDERED: MORPHINE SULFATE IR 15 MG TABLET PO PRN (11:45)
[2023-01-30] MEDS ORDERED: CLONAZEPAM 0.5 MG TAB ONE (17:45)
[2023-01-30] MEDS: ATORVASTATIN 40 MG TAB PO SCH (22:42)
[2023-01-31 00:23] VITALS: BP 110/62
[2023-01-31] MEDS: MORPHINE SULFATE IR 15 MG TABLET PO SCH ×6 (02:14→23:59)
[2023-01-31] MEDS: CLONAZEPAM 0.5 MG TAB PO PRN ×3 (02:16→23:58)
[2023-01-31] MEDS: LEVALBUTEROL HCL SOLN NEBU 1.25 MG/3 ML NEB INH SCH ×4 (02:50→19:47)
[2023-01-31 04:00] VITALS: BP 128/57
[2023-01-31] MEDS: LEVOTHYROXINE SODIUM 112 MCG TAB PO SCH (06:33)
[2023-01-31] MEDS: DOCUSATE SODIUM 100 MG CAP PO SCH ×2 (09:00→16:51)
[2023-01-31] MEDS: HEPARIN SOD (PORCINE) 5,000 UNIT/ML VIAL SC SCH ×2 (09:00→21:00)
[2023-01-31] MEDS: BISACODYL 5 MG TAB EC PO SCH ×2 (09:00→16:51)
[2023-01-31] MEDS: POLYETHYLENE GLYCOL 3350 17 GM PACK PO SCH ×2 (09:00→16:51)
[2023-01-31] MEDS: DICYCLOMINE HCL 10 MG CAP PO SCH ×4 (09:13→21:24)
[2023-01-31] MEDS: LUBIPROSTONE 24 MCG CAP PO SCH ×2 (09:13→16:50)
[2023-01-31] MEDS: MESALAMINE 400 MG CAP PO SCH ×2 (09:13→16:48)
[2023-01-31] MEDS: BUPROPION HCL 100 MG TAB PO SCH ×2 (09:14→16:51)
[2023-01-31] MEDS: SUCRALFATE 1 GM TAB PO SCH ×4 (09:14→21:24)
[2023-01-31] MEDS: FUROSEMIDE INJ 10 MG/ML 4 ML VIAL IV SCH (09:14)
[2023-01-31] MEDS: POTASSIUM CHLORIDE 10MEQ EA PO SCH ×2 (09:14→16:49)
[2023-01-31] MEDS: FLUTICASONE PROPIONATE NASAL SPRAY NS SCH (09:23)
[2023-01-31] MEDS: NYSTATIN/TRIAMCINOLONE 15 GM CR TOP SCH ×2 (09:24→16:51)
[2023-01-31] MEDS: ONDANSETRON HCL INJ 2MG/ML 2ML 2 MG/ML VIAL IV PRN (09:41)
[2023-01-31] MEDS: FUROSEMIDE 40 MG TAB PO SCH (13:10)
[2023-01-31] MEDS: MAALOX/LIDOCAINE/BENADRYL/NYST 30 ML BTL PO SCH ×3 (13:11→21:34)
[2023-01-31] MEDS: FLUCONAZOLE 100 MG/NS 50 ML 50 ML IV SCH (13:11)
[2023-01-31 16:16] VITALS: BP 108/53
[2023-01-31] MEDS: ATORVASTATIN 40 MG TAB PO SCH (21:24)
[2023-01-31 21:27] VITALS: BP 112/66
[2023-01-31 21:31] VITALS: BP 112/66
[2023-02-01] MEDS: LEVALBUTEROL HCL SOLN NEBU 1.25 MG/3 ML NEB INH SCH ×3 (00:50→13:00)
[2023-02-01 00:57] VITALS: BP 119/59
[2023-02-01 04:00] VITALS: BP 115/52
[2023-02-01] MEDS: LEVOTHYROXINE SODIUM 112 MCG TAB PO SCH (05:10)
[2023-02-01] MEDS: CLONAZEPAM 0.5 MG TAB PO PRN ×2 (05:23→12:11)
[2023-02-01 06:11] LABS: BASOPHILS % 0.7 % (0.0-1.0); EOSINOPHILS # (AUTO) 0.1 (0.0-0.4); EOSINOPHILS % 1.4 % (0.0-6.0); HEMATOCRIT 31.3 % (34.2-44.1); HEMOGLOBIN 9.3 g/dL (12.0-16.0); LYMPHOCYTES # (AUTO) 1.1 (1.0-3.2); LYMPHOCYTES % 19.1 % (18.0-39.1); MEAN CORPUSCULAR HEMOGLOBIN 25.7 pg (28-32); MEAN CORPUSCULAR HGB CONC 29.7 g/dL (31-35); MEAN CORPUSCULAR VOLUME 86.5 fL (81-99); MONOCYTES # (AUTO) 0.5 (0.2-0.8); MONOCYTES % 8.6 % (4.4-11.3); NEUTROPHILS # (AUTO) 3.9 (2.1-6.9); NEUTROPHILS % 69.5 % (38.7-80.0); PLATELET COUNT 178 x10e3/uL (140-360); RED BLOOD COUNT 3.62 x10e6/uL (3.6-5.1); RED CELL DISTRIBUTION WIDTH 18.8 % (11.7-14.4)
[2023-02-01 07:17] LABS: ANION GAP 16.1 mmol/L (8-16); CALCIUM 8.8 mg/dL (8.4-10.2); CREATININE, SERUM 0.79 mg/dL (0.57-1.11); POTASSIUM 3.1 mmol/L (3.5-5.1)
[2023-02-01] MEDS: HEPARIN SOD (PORCINE) 5,000 UNIT/ML VIAL SC SCH (09:00)
[2023-02-01] MEDS: FLUTICASONE PROPIONATE NASAL SPRAY NS SCH (09:00)
[2023-02-01] MEDS: NYSTATIN/TRIAMCINOLONE 15 GM CR TOP SCH (09:00)
[2023-02-01] MEDS: POLYETHYLENE GLYCOL 3350 17 GM PACK PO SCH (09:00)
[2023-02-01 09:12] VITALS: BP 114/97
[2023-02-01] MEDS: DOCUSATE SODIUM 100 MG CAP PO SCH (09:14)
[2023-02-01] MEDS: MESALAMINE 400 MG CAP PO SCH (09:14)
[2023-02-01] MEDS: MORPHINE SULFATE IR 15 MG TABLET PO SCH ×2 (09:15→12:11)
[2023-02-01] MEDS: POTASSIUM CHLORIDE 10MEQ EA PO SCH (09:16)
[2023-02-01] MEDS: LUBIPROSTONE 24 MCG CAP PO SCH (09:16)
[2023-02-01] MEDS: SUCRALFATE 1 GM TAB PO SCH ×2 (09:16→12:10)
[2023-02-01] MEDS: DICYCLOMINE HCL 10 MG CAP PO SCH ×2 (09:16→12:10)
[2023-02-01] MEDS: BISACODYL 5 MG TAB EC PO SCH (09:16)
[2023-02-01] MEDS: FUROSEMIDE 40 MG TAB PO SCH ×2 (09:17→12:10)
[2023-02-01] MEDS: BUPROPION HCL 100 MG TAB PO SCH (09:18)
[2023-02-01] MEDS: MAALOX/LIDOCAINE/BENADRYL/NYST 30 ML BTL PO SCH (09:19)
[2023-02-01] MEDS ORDERED: SALIVA SUBSTITUTE 45 ML LIQD MM PRN (10:00)
[2023-02-01] MEDS ORDERED: POTASSIUM CHLORIDE 10MEQ EA PO ONE (10:00)
[2023-02-01] MEDS: FLUCONAZOLE 100 MG/NS 50 ML 50 ML IV SCH (12:11)
[2023-02-01 12:25] VITALS: BP 127/68
[2023-02-01] MEDS ORDERED: ONDANSETRON HCL 4 MG ORAL DISINTEGRATING TAB PO PRN (14:00)
[2023-02-02] MEDS ORDERED: PANTOPRAZOLE SOD 40 MG TABEC PO SCH (07:30)
[2023-02-02] MEDS ORDERED: FLUCONAZOLE 100 MG TAB PO SCH (09:00)
== END 2023-02-01 14:44 | disposition home or self-care (01) | DRG 192 ==
LOC: ER 10:10 → ERHOLD 13:03 → INTOOBSV 13:03 → MED/SURG2 14:45 → OBSVTOIN 01-26 10:58
PROVIDERS: ADMIT Internal Medicine; ATTEND Internal Medicine
DX: J44.1 Chronic obstructive pulmonary disease with (acute) exacerbation (principal); E03.9 Hypothyroidism, unspecified; G43.909 Migraine, unspecified, not intractable, without status migrainosus; M54.9 Dorsalgia, unspecified; G89.29 Other chronic pain; Z79.82 Long term (current) use of aspirin; Z99.81 Dependence on supplemental oxygen
CPT/HCPCS: 0223U; 36415; 36569; 71045; 74018; 74176; 80048; 80053; 81001; 82550; 82553; 83735; 83880; 84100; 84484; 85025; 85379; 93005; 93970; 94799; 99284; G0378; J1450; J1644; J1940; J2270; J2405

== ENCOUNTER 2023-02-12 22:14 | Emergency (ER) | payer MEDICARE ==
[~2023-02-12] VITALS: Ht 147.3 cm; Wt 56.7 kg
[2023-02-12 23:35] LABS: BASOPHILS # (AUTO) 0.1 (0.0-0.1); BASOPHILS % 0.6 % (0.0-1.0); EOSINOPHILS # (AUTO) 0.1 (0.0-0.4); EOSINOPHILS % 1.2 % (0.0-6.0); HEMATOCRIT 35.9 % (34.2-44.1); HEMOGLOBIN 11.1 g/dL (12.0-16.0); LYMPHOCYTES # (AUTO) 1.8 (1.0-3.2); LYMPHOCYTES % 17.3 % (18.0-39.1); MEAN CORPUSCULAR HEMOGLOBIN 24.7 pg (28-32); MEAN CORPUSCULAR HGB CONC 30.9 g/dL (31-35); MEAN CORPUSCULAR VOLUME 79.8 fL (81-99); MONOCYTES # (AUTO) 0.6 (0.2-0.8); MONOCYTES % 5.6 % (4.4-11.3); NEUTROPHILS # (AUTO) 7.7 (2.1-6.9); NEUTROPHILS % 73.9 % (38.7-80.0); PLATELET COUNT 300 x10e3/uL (140-360)
[2023-02-12] MEDS ORDERED: METHOCARBAMOL 100MG/1ML 10ML VIAL IV ONE (23:45)
[2023-02-12 23:55] LABS: ALBUMIN 3.4 g/dL (3.5-5.0); ALBUMIN/GLOBULIN RATIO 0.7 (0.8-2.0); CALCIUM 9.7 mg/dL (8.4-10.2); CREATININE, SERUM 0.83 mg/dL (0.57-1.11)
[2023-02-13] MEDS ORDERED: ONDANSETRON HCL INJ 2MG/ML 2ML 2 MG/ML VIAL IV STA (00:11)
[2023-02-13] MEDS ORDERED: SODIUM CHLORIDE 0.9% 100 ML ONE (00:21)
[2023-02-13 01:41] LABS: CLARITY,URINE CLOUDY (CLEAR); COLOR,URINE YELLOW (YELLOW)
[2023-02-13 01:42] LABS: KETONES,URINE TRACE (NEGATIVE); LEUKOCYTE ESTERASE ,URINE SMALL (NEGATIVE); NITRITE,URINE POSITIVE (NEGATIVE); PROTEIN,URINE DIPSTICK NEGATIVE (NEGATIVE); URINE UROBILINOGEN 0.2 mg/dL (0.2 - 1)
[2023-02-13 01:48] VITALS: BP 122/78
[2023-02-13 01:50] LABS: BACTERIA,URINE MODERATE /HPF; EPITHELIAL CELLS,URINE MANY /LPF; RBC,URINE 0-5 /HPF (0-5)
[2023-02-13] MEDS ORDERED: Morphine 4mg INJECTION 4 MG/ML INJ IV ONE (02:00)
[2023-02-13] MEDS ORDERED: GOLYTELY SOLU4000 M1 PO (02:56)
[2023-02-13] MEDS ORDERED: IOPAMIDOL 370 MG/ML 100 ML INFUS..BTL INJ ONE (03:46)
== END 2023-02-13 03:30 | disposition home or self-care (01) ==
LOC: ER 22:20
DX: R10.30 Lower abdominal pain, unspecified (principal); K59.00 Constipation, unspecified; Z76.5 Malingerer [conscious simulation]; R94.31 Abnormal electrocardiogram [ECG] [EKG]
CPT/HCPCS: 36415; 74177; 80053; 81001; 83690; 85025; 93005; 99282; J2270; J2405; J2800; J7050; Q9967

== ENCOUNTER → 2023-03-30 | Emergency (ER) | payer MEDICARE ==
[~2023-03-30] MED LIST changes: +GOLYTELY SOLU4000 M1 PO
== END | disposition left against medical advice (07) ==
LOC: ER 14:30
DX: R06.02 Shortness of breath (principal)

== ENCOUNTER 2023-04-28 22:53 | Emergency (ER) | payer MEDICARE ==
[~2023-04-28] VITALS: Ht 147.3 cm; Wt 56.7 kg
[2023-04-28 23:09] VITALS: O2SAT 100
[2023-04-28] MEDS ORDERED: METHOCARBAMOL750 MG PO (23:57)
== END 2023-04-29 00:30 | disposition home or self-care (01) ==
LOC: ER 23:00
DX: F11.23 Opioid dependence with withdrawal (principal); G89.29 Other chronic pain; M54.9 Dorsalgia, unspecified; R10.9 Unspecified abdominal pain; J44.9 Chronic obstructive pulmonary disease, unspecified; Z99.81 Dependence on supplemental oxygen
CPT/HCPCS: 99283